=== PATIENT | female | born 1960 | race Caucasian/White ===

== ENCOUNTER 2016-12-30 15:29 | Inpatient (IN) | payer MEDICAID ==
[2016-12-30] MEDS ORDERED: NORMAL SALINE 1000 ML 1,000 ML IV PRN (16:09)
[2016-12-30] MEDS ORDERED: INSULIN REG, HUMAN 100 UNIT/ML 3 ML VIAL (PYX) IV ONE ×2 (16:21→19:34)
--- NOTE | 2016-12-30 16:28 | ER Document Report ---
ED General - General Stated Complaint: DIZZINESS Mode of Arrival: Medic Information source: Patient, Emergency Med Personnel TRAVEL OUTSIDE OF THE [place] IN LAST 30 DAYS: No - HPI Onset: This morning Onset/Duration: Gradual Notes: Patient reports feeling generally dizzy and generally weak over the last few days, worse this morning. EMS arrived and she had a blood sugar too high to register. The patient did not take her insulin this morning, and reports she normally takes insulin up to 4 times per day. She reports several week history of itching skin rash worse in the morning and she states wrist family members of the same rash, and DMSO bedbugs in the residence. The patient reports she feels lightheaded and generally weak, with EMS finding a blood pressure of 80 systolic. Patient was given 600 mL also IV fluids en route and arrived still hypotensive. The patient denies any chest pain or shortness of breath. She reports a minimal nonproductive cough. She denies any fever or chills. She is chronically incontinent and wears a diaper. She states she can ambulate very minimally related to a broken left ankle from 11/15 that occurred in [place]. Patient reports she followed up with her orthopedist in [facility] and was told recently it was healing appropriately. Patient reports diarrhea episode 2 days ago, has not had a bowel movement since that time. No other family members of head diarrhea. No recent antibiotics. - Related Data Allergies/Adverse Reactions: hydrochlorothiazide [From Maxzide] Allergy (Verified 10/05/16 07:16) triamterene [From Maxzide] Allergy (Verified 10/05/16 07:16) Past Medical History - Social History Smoking Status: Never Smoker Frequency of alcohol use: None - Appreciated Lives with: Family Family History: Reviewed & Not Pertinent, DM, Malignancy - Mother had liver cancer, Other - Father of sudden arrhythmia, had cirrhosis and a liver transplant. - Past Medical History Cardiac Medical History: Reports: Hx Hypercholesterolemia - On no medication for same, Hx Hypertension Denies: Hx Congestive Heart Failure, Hx DVT, Hx Heart Attack, Hx Pulmonary Embolism, Hx Heart Murmur Pulmonary Medical History: Reports: Hx Bronchitis, Hx COPD, Hx Pneumonia, Hx Sleep Apnea Denies: Hx Respiratory Failure, Hx Tuberculosis Neurological Medical History: Denies: Hx Seizures Endocrine Medical History: Reports: Hx Diabetes Mellitus Type 1, Hx Diabetes Mellitus Type 2. Denies: Hx Hyperthyroidism, Hx Hypothyroidism Renal/ Medical History: Reports: Hx Renal Insufficiency - Her creatinines have remained under 1.0 GI Medical History: Reports: Hx Gastroesophageal Reflux Disease. Denies: Hx Cirrhosis, Hx Hepatitis Musculoskeltal Medical History: Reports Hx Arthritis Skin Medical History: Denies Hx Eczema, Denies Hx Psoriasis Psychiatric Medical History: Reports: Hx Anxiety, Hx Bipolar Disorder, Hx Depression Infectious Medical History: Denies: Hx Hepatitis Past Surgical History: Reports: Hx Section - x2, Hx Tubal Ligation, Other - Laser eye surgery 2. - Immunizations Immunizations up to date: Yes Hx Diphtheria, Pertussis, Tetanus Vaccination: Yes Hx Pneumococcal Vaccination: 02/26/12 Review of Systems - Review of Systems Constitutional: Malaise, Weakness. denies: No symptoms reported, Chills, Fever EENT: No symptoms reported Cardiovascular: Dizziness, Lightheaded Respiratory: No symptoms reported Gastrointestinal: Diarrhea - Prior, but no bowel movement in 2 days., Poor fluid intake Physical Exam - Vital signs Vitals: Pulse Ox 97 12/30/16 16:09 Interpretation: Hypotensive - General General appearance: Alert In distress: Mild Notes: Pale - HEENT Head: Normocephalic - Described 4 The fighting for elbow, Atraumatic Eyes: Normal Pupils: PERRL Mucous membranes: Dry - Respiratory Respiratory status: No respiratory distress Chest status: Nontender Breath sounds: Normal Chest palpation: Normal - Cardiovascular Rhythm: Regular Heart sounds: Normal auscultation Murmur: No - Abdominal Inspection: Normal Distension: No distension Bowel sounds: Normal Tenderness: Nontender Organomegaly: No organomegaly - Back Back: Normal, Nontender - Extremities General upper extremity: Normal inspection, Nontender, Normal color, Normal ROM , Normal temperature General lower extremity: Normal inspection, Nontender, Normal color, Normal ROM , Normal temperature, Normal weight bearing. No: Adam's sign Notes: Patient has a left lower extremity cast in place that appears to be very loosely fitting that extends from the proximal calf down to the lower foot. She has good distal capillary refill and no evidence for cellulitis or obvious skin breakdown of the visualized areas. - Neurological Neuro grossly intact: Yes Cognition: Normal Orientation: AAOx4 Samara Coma Scale Eye Opening: Spontaneous Samara Coma Scale Verbal: Oriented Samara Coma Scale Motor: Obeys Commands [place] Coma Scale Total: 15 Speech: Normal Motor strength normal: LUE, RUE, LLE, RLE Sensory: Normal - Psychological Associated symptoms: Normal affect, Normal mood - Skin Skin Temperature: Warm Skin Moisture: Dry Skin Color: Normal Notes: Patient has stage II decubitus without any significant erythema around the lower midline gluteal region measures 1 x 2 cm and 1 x 2 cm. No evidence for abscess or obvious cellulitis. Patient also has multiple right lower extremity areas of excoriation consistent with bedbug bites. No gross cellulitis or other breakdown noted. Distally she is neurovascularly intact. Course - Re-evaluation Re-evalutation: Patient was given normal saline bolus en route by EMS, and received additional normal saline bolus for hypotension. Blood sugar was too high to register, and patient was given 10 units of IV insulin. For monitoring of strict ins and outs, and because patient is chronically incontinent of urine, a Bassett catheter was placed. 12/30/16 20:10 Patient's blood sugar improved down to 550 after 10 units of IV insulin. Patient's hypotension with systolic down to 69 did respond to IV fluids, and after 3 L normal saline with some supplemental potassium, repeat blood pressure was 98/53. Patient admitted she had not drank any fluids today or taken her insulin due to her generalized weakness. Order for an insulin drip is made for better glycemic control. Patient is given by mouth potassium to further supplement her hypokalemia. Repeat chemistry ordered. Call placed to the hospitalist to discuss admission. Normal bicarbonate without evidence for diabetic ketoacidosis. Patient's had no nausea or vomiting and is tolerating by mouth fluids. 12/30/16 21:[address] Subramanian, who advised me to check outpatient to my colleague Dr. Ortiz until he was able to eval the pt in the E.D. Continued gentle rehydration with insulin drip was written. Fingerstick blood sugars will be every 1 hour. No evidence for DKA, and hypotension is improving. Patient is alert and interactive. - Vital Signs Vital signs: Temp Pulse Resp BP Pulse Ox 99.4 F 20 89/46 L 100 12/30/16 19:01 12/30/16 19:01 12/30/16 19:01 12/30/16 19:01 - Laboratory Result Diagrams: 12/30/16 16:08 12/30/16 16:08 Laboratory results interpreted by me: 12/30/16 12/30/16 12/30/16 16:08 16:08 16:08 Hgb 10.4 L Hct 31.0 L MCH 26.7 L RDW 15.2 H Plt Count 125 L Sodium 130.5 L Potassium 3.0 L* Chloride 96 L Creatinine 1.62 H Est GFR ( Amer) 40 L Est GFR (Non-Af Amer) 33 L Glucose 601 H* POC Glucose Lactic Acid 2.4 H Calcium 8.1 L Magnesium 1.3 L Alkaline Phosphatase 142 H Total Protein 4.8 L Albumin 2.8 L Urine Protein Urine Glucose (UA) 12/30/16 12/30/16 12/30/16 18:22 18:37 20:39 Hgb Hct MCH RDW Plt Count Sodium Potassium Chloride Creatinine Est GFR ( Amer) Est GFR (Non-Af Amer) Glucose POC Glucose > 550 H* 429 H* Lactic Acid Calcium Magnesium Alkaline Phosphatase Total Protein Albumin Urine Protein 100 H Urine Glucose (UA) >=500 H - EKG Interpretation by Me EKG shows normal: Sinus rhythm Rate: Normal Additional EKG results interpreted by me: 12/30/16 20:13 EKG as interpreted by me showed normal sinus rhythm heart rate of 74. There is no gross evidence for acute TX or ischemia identified. There is no significant change from previous EKG reviewed from 10/05/16. Discharge - Discharge Clinical Impression: Hyperglycemia, Medical non-compliance, Hypotension, Renal insufficiency, Hypokalemia, Bedbug bite, Decubitus skin ulcer Condition: Poor Disposition: ADMITTED INPATIENT Referrals: JOSE G CELIS MD [Primary Care Provider] - Follow up as needed
[2016-12-30 16:30] LABS: ABSOLUTE EOSINOPHILS # (AUTO) 0.1 10^3/uL (0.0-0.6); ABSOLUTE LYMPHOCYTES (AUTO) 1.6 10^3/uL (0.5-4.7); ABSOLUTE MONOCYTES (AUTO) 0.3 10^3/uL (0.1-1.4); ABSOLUTE NEUT (AUTO) 2.6 10^3/uL (1.7-8.2); EOSINOPHILS % (AUTO) 2.2 % (0-6); HEMOGLOBIN 10.4 g/dL (12.0-15.5); HGB HCT DIFFERENCE 0.2; LYMPHOCYTES % (AUTO) 34.5 % (13-45); MEAN CORPUSCULAR HEMOGLOBIN 26.7 pg (27.0-33.4); MEAN CORPUSCULAR HGB CONC 33.4 g/dL (32.0-36.0); MEAN CORPUSCULAR VOLUME 80 fl (80-97); MONOCYTES % (AUTO) 5.6 % (3-13); RED BLOOD COUNT 3.88 10^6/uL (3.72-5.28); RED CELL DISTRIBUTION WIDTH 15.2 % (11.5-14.0); SEGMENTED NEUTROPHILS % (AUTO) 56.7 % (42-78); WHITE BLOOD COUNT 4.6 10^3/uL (4.0-10.5)
[2016-12-30 16:46] LABS: ALANINE AMINOTRANSFERASE 30 U/L (9-52); ALBUMIN 2.8 g/dL (3.5-5.0); ALKALINE PHOSPHATASE 142 U/L (38-126); ANION GAP 11 (5-19); ASPARTATE AMINO TRANSFERASE 25 U/L (14-36); BILIRUBIN,TOTAL 0.8 mg/dL (0.2-1.3); BLOOD UREA NITROGEN 20 mg/dL (7-20); CALCIUM 8.1 mg/dL (8.4-10.2); CARBON DIOXIDE 24 mmol/L (22-30); CHLORIDE 96 mmol/L (98-107); CREATINE KINASE 46 U/L (30-135); CREATININE RESULT 1.62 mg/dL (0.52-1.25); MAGNESIUM 1.3 mg/dL (1.6-2.3); SODIUM 130.5 mmol/L (137-145); TOTAL PROTEIN 4.8 g/dL (6.3-8.2)
[2016-12-30 16:58] LABS: CREATINE KINASE MB 1.07 ng/mL (<4.55); TROPONIN I 0.012 ng/mL
[2016-12-30 17:01] LABS: GLUCOSE 601 mg/dL (75-110)
[2016-12-30] MEDS ORDERED: POTASSI CL 20 MEQ/NS 1L 1,000 ML IV ONE (18:04)
--- NOTE | 2016-12-30 18:06 | EKG REPORT ---
SEVERITY:- ABNORMAL ECG - SINUS RHYTHM PROBABLE LEFT VENTRICULAR HYPERTROPHY BORDERLINE T ABNORMALITIES, INFERIOR LEADS PROLONGED QT INTERVAL : Confirmed by: Annita Cabral MD 30-Dec-2016 18:04:31
[2016-12-30] MEDS ORDERED: POTASSIUM CHLORIDE 10 MEQ TABLET.SA PO ONE (18:12)
[2016-12-30] MEDS ORDERED: DEXTROSE 50%-WATER 25 GM/50 ML DISP.SYRIN IV PRN ×2 (18:45)
[2016-12-30] MEDS ORDERED: NORMAL SALINE 100 ML with INSULIN REGULAR, HUMAN 100 UNIT IV PRN ×2 (18:45)
[2016-12-30] MEDS ORDERED: DEXTROSE 40% GEL 15 GM TUBE PO PRN ×2 (18:45)
[2016-12-30] MEDS ORDERED: GLUCAGON,HUMAN RECOMB 1 MG INJ IM PRN (18:45)
[2016-12-30] MEDS ORDERED: NORMAL SALINE 1000 ML 1,000 ML IV ONE (18:50)
[2016-12-30 18:54] LABS: APPEARANCE,URINE SLIGHTLY-CLOUDY; BILIRUBIN,URINE NEGATIVE (NEGATIVE); GLUCOSE, URINE >=500 mg/dL (NEGATIVE); KETONES,URINE NEGATIVE (NEGATIVE); LEUKOCYTE ESTERASE,URINE NEGATIVE (NEGATIVE); NITRITE,URINE NEGATIVE (NEGATIVE); PROTEIN,URINE 100 mg/dL (NEGATIVE); URINE SPECIFIC GRAVITY 1.031; UROBILINOGEN,URINE NEGATIVE mg/dL (<2.0)
[2016-12-30 19:38] LABS: VENOUS BLOOD BASE EXCESS -1.6 mmol/L; VENOUS BLOOD HCO3 24.7 mmol/L (20-32); VENOUS BLOOD PCO2 49.1 mmHg (35-63); VENOUS BLOOD PH 7.32 (7.30-7.42)
[2016-12-30] MEDS ORDERED: POTASSI CL 20 MEQ/1/2NS 1L 1,000 ML IV ONE (20:47)
[2016-12-30] MEDS ORDERED: INSULIN REG, HUMAN 100 UNIT/ML 3 ML VIAL (PYX) ONE (21:54)
[2016-12-30 22:15] LABS: ANION GAP 7 (5-19); BLOOD UREA NITROGEN 19 mg/dL (7-20); CARBON DIOXIDE 26 mmol/L (22-30); CHLORIDE 104 mmol/L (98-107); CREATININE RESULT 1.27 mg/dL (0.52-1.25); GLUCOSE 349 mg/dL (75-110); POTASSIUM 3.1 mmol/L (3.6-5.0); SODIUM 137.4 mmol/L (137-145)
[2016-12-31] MEDS ORDERED: POTASSI CL 20 MEQ/D5NS 1L 1,000 ML IV PRN (02:50)
[2016-12-31] MEDS ORDERED: POTASSI CL 20 MEQ/D5NS 1L 20 MEQ/1,000 ML RTUINJ IV ONE (02:53)
[2016-12-31] MEDS ORDERED: DEXTROSE 40% GEL 15 GM TUBE PO PRN ×2 (02:55)
[2016-12-31] MEDS ORDERED: GLUCAGON,HUMAN RECOMB 1 MG INJ IM PRN (02:55)
[2016-12-31] MEDS ORDERED: DEXTROSE 50%-WATER 25 GM/50 ML DISP.SYRIN IV PRN ×2 (02:55)
[2016-12-31] MEDS ORDERED: POTASSI CL 20 MEQ/NS 1L 1,000 ML IV PRN (02:58)
[2016-12-31] MEDS ORDERED: POTASSI CL 20 MEQ/NS 1L 1,000 ML IV ONE (02:59)
[2016-12-31] MEDS ORDERED: MAGNESIUM SULFATE/D5W 1 GM/100 ML RTUPB IV SCH (03:00)
[2016-12-31] MEDS ORDERED: IPRATROPIUM/ALBUTEROL 0.5-2.5 MG/3 ML AMPUL NEB PRN (03:00)
[2016-12-31] MEDS ORDERED: ACETAMINOPHEN 325 MG TABLET PO PRN (03:07)
[2016-12-31] MEDS ORDERED: ACETAMINOPHEN 650 MG SUPP.RECT PR PRN (03:10)
[2016-12-31] MEDS ORDERED: POTASSI CL 20 MEQ/50 ML RIDER 20 MEQ/50 ML RTUPB IV ONE (03:15)
--- NOTE | 2016-12-31 03:17 | PDOC H&P ---
History of Present Illness Admission Date/PCP: 12/30/16 23:29 JOSE G CELIS MD Patient complains of: Dizziness History of Present Illness: ALEJO ABBASI is a 56 year old female with underlying type I diabetes mellitus, occasional urinary tract infection, COPD, mild reflux, and bipolar disorder with associated anxiety and depression who presents to the emergency room for evaluation of above complaint. Patient has been discussed with emergency room physician who evaluated the patient. Patient gives conflicting, confused answers to questions and is able to provide no history whatsoever in terms of acute or chronic events, review of systems, personal habits, family history, etc. No friends or family are present. Old inpatient records are reviewed. She does however deny pain at present time. . ER physician notes a been reviewed. Was noted to be significantly hypotensive upon initial presentation to the emergency room, with low systolic pressure of 68. This is gradually responded to multiple liter boluses of crystalloid and pressure slowly rising in an acceptable range. Patient was initially started on insulin drip by the emergency room physician. No evidence of acidosis. This is been able to be discontinued after above treatment. Laboratory results are listed in [employer] and are reviewed. X-ray summary results are listed below, with full report(s) reviewed. . EKG reviewed. October 05 of last year. Social history/personal habits: From review of prior records from a 10/05/2016 admission, . 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 No alcohol or illicit drug use. Allergies/adverse reactions are listed in [facility] and are reviewed. Home medications are reviewed from a list provided by patient and are to be reconciled by nursing staff in [facility]. Home medications initially autopopulated into [employer] may not accurately reflect patient's true medications, dosages, and/or frequencies. REVIEW OF SYSTEMS: See history and present illness. No further information available this point in time. PHYSICAL EXAMINATION: 105.2 kg. Height is not recorded on the chart. Temperature 99.4. Respirations are 14 and unlabored. 100% saturation on 3 L oxygen per nasal cannula. Pulse 62 and regular. Blood pressure 99/62. service center technician Reji is present. Obese chronically ill-appearing somewhat disheveled female who appears a bit older than her stated age. Somewhat somnolent. Does awaken briefly when spoken to and look about the room and does follow basic commands appropriately, though somewhat slowly. Skin is warm and dry. No grossly obvious evidence of rash in areas of skin examined. No subcutaneous nodules palpated. See emergency room physician comments about decubiti in her buttock region. No evidence of secondary infection of same. ENT: Hearing grossly normal to normal conversation. Tongue midline on protrusion pink and slightly tacky. Eyes: No scleral icterus. Pupils equal and reactive to light at 4 mm. [place] conjunctivae. No raccoon eyes. Neck is supple and nontender to gentle active range of motion and palpation. Midline trachea. No palpable thyroid nodule mass enlargement or tenderness. Lymphatic: No palpable cervical or clavicular nodes. Neck and lymphatic exams limited by patient body habitus. Psychiatric: Difficult to adequately evaluate due to her current status. Lungs: Auscultation reveals clear and equal breath sounds bilaterally. No use of accessory respiratory muscles. Cardiovascular: Heart regular rate and rhythm, without gallop murmur or rub. No carotid or abdominal aortic bruits. No right ankle or pedal edema; has left lower leg cast in place.. Faintly palpable right dorsalis pedis pulse. Toes on both feet are symmetrically warm and dry with excellent capillary refill. Abdomen: soft, obese, distended nontender with positive bowel sounds. Unable to adequately evaluate abdomen for masses or organomegaly due to Body habitus Extremities: Right foot warm and dry. No right calf tenderness to compression. No grossly obvious visual evidence of right calf swelling. Gentle manipulation of lower extremities fails to reveal any obvious evidence of injury or instability to knees hips or right ankle. Neurologic: Moves all 4 extremities grossly normally. Patellar reflexes absent. Absent right Babinski. Light touch can't be adequately evaluated due to her current status. Dorsiflexion and plantarflexion of right foot 5 / 5. Past Medical History Cardiac Medical History: Reports: Hyperlipidema - On no medication for same, Hypertension Denies: Congestive Heart Failure, DVT, Myocardial Infarction, Pulmonary Embolism, Heart Murmur Pulmonary Medical History: Reports: Bronchitis, Chronic Obstructive Pulmonary Disease (COPD), Pneumonia, Sleep Apnea Denies: Respiratory Failure, Tuberculosis Neurological Medical History: Denies: Seizures Endocrine Medical History: Reports: Diabetes Mellitus Type 1, Diabetes Mellitus Type 2 Denies: Hyperthyroidism, Hypothyroidism GI Medical History: Reports: Gastroesophageal Reflux Disease Denies: Cirrhosis, Hepatitis Musculoskeltal Medical History: Reports: Arthritis Skin Medical History: Denies: Eczema, Psoriasis Psychiatric Medical History: Reports: Bipolar Disorder, Depression Hematology: Reports: Anemia Denies: Hemophilia, Sickle Cell Disease Past Surgical History Past Surgical History: Reports: Section - x2, Tubal Ligation, Other - Laser eye surgery 2. Denies: Amputation Social History Information Source: Emergency Med Personnel, [facility] Records Lives with: Family Smoking Status: Current Some Day Smoker Frequency of Alcohol Use: None Hx Recreational Drug Use: No Drugs: None Hx Prescription Drug Abuse: No - Advance Directive Resuscitation Status: Full Code Surrogate healthcare decision maker:: Reportedly Family History Family History: Reviewed & Not Pertinent, DM, Malignancy - Mother had liver cancer, Other - Father of sudden arrhythmia, had cirrhosis and a liver transplant. Parental Family History Reviewed: Yes Children Family History Reviewed: Yes Sibling(s) Family History Reviewed.: Yes Medication/Allergy Home Medications: Bupropion HCl [Bupropion HCl Sr] 150 mg PO DAILY 12/31/16 Gabapentin [Neurontin 300 mg Capsule] 4 cap PO TID 12/31/16 Insulin Aspart [Novolog Flexpen] 0 units SUBCUT ASDIR PRN 12/31/16 Insulin Detemir [Levemir Insulin 100 units/mL] 80 units SUBCUT BID 12/31/16 Lorazepam [Ativan 0.5 mg Tablet] 1 tab PO DAILY 12/31/16 Lorazepam [Ativan 1 mg Tablet] 0.5 tab PO Q6HP PRN 12/31/16 Pantoprazole Sodium [Protonix] 20 mg PO DAILY 12/31/16 Quetiapine Fumarate [Seroquel 100 mg Tablet] 1 tab PO DAILY 12/31/16 Quetiapine Fumarate [Seroquel 100 mg Tablet] 1 tab PO DAILY 12/31/16 Quetiapine Fumarate [Seroquel] 200 mg PO QAM 12/31/16 Quetiapine Fumarate [Seroquel] 400 mg PO QPM 12/31/16 Ropinirole HCl [Requip] 3 mg PO TID 12/31/16 Allergies/Adverse Reactions: hydrochlorothiazide [From Maxzide] Allergy (Verified 10/05/16 07:16) triamterene [From Maxzide] Allergy (Verified 10/05/16 07:16) Physical Exam Vital Signs: Temp Pulse Resp BP Pulse Ox 99.4 F 19 114/65 100 12/30/16 19:01 12/31/16 00:01 12/31/16 00:01 12/31/16 00:01 Results Impressions: Chest X-Ray 12/30/16 16:21 IMPRESSION: NO ACUTE RADIOGRAPHIC FINDING IN THE CHEST. Assessment & Plan - Diagnosis (1) Decubitus skin ulcer Qualifiers: Pressure ulcer location: unspecified location Pressure ulcer stage: unspecified pressure ulcer stage Qualified Code(s): L89.90 - Pressure ulcer of unspecified site, unspecified stage Is this a current diagnosis for this admission?: YesPlan: Innovative mattress. Turn every 2 hours. Dietary consult. (2) Diabetes mellitus type 1, uncontrolled Qualifiers: Diabetes mellitus complication status: without complication Qualified Code(s): E10.9 - Type 1 diabetes mellitus without complications Is this a current diagnosis for this admission?: YesPlan: Accu-Cheks with appropriate sliding scale coverage. Currently nothing by mouth due to combination of her acute encephalopathy, along with low blood pressure. Knee high SCDs for DVT prophylaxis, along with subcutaneous heparin. Time spent in evaluation and management of patient: 68 minutes. (3) Hypokalemia Is this a current diagnosis for this admission?: YesPlan: Potassium replacement with follow-up chemistry. (4) Hypomagnesemia Is this a current diagnosis for this admission?: YesPlan: Magnesium replacement with follow-up chemistry. (5) Hypotension Qualifiers: Hypotension type: unspecified hypotension type Qualified Code(s): I95.9 - Hypotension, unspecified Is this a current diagnosis for this admission?: YesPlan: Uncertain etiology. Suspect due at least partly to poor by mouth intake. Seems to be resolving nicely with vigorous fluid boluses and further hydration. ICU admission for the present time. (6) Acute encephalopathy Is this a current diagnosis for this admission?: YesPlan: Probably multifactorial, possibly due in part to her home medications. Should clear with treatment and time. - Inpatient Certification Based on my medical assessment, after consideration of the patient's comorbidities, presenting symptoms, or acuity I expect that the services needed warrant INPATIENT care.: Yes I certify that my determination is in accordance with my understanding of Medicare's requirements for reasonable and necessary INPATIENT services [42 CFR 412.3e].: Yes Medical Necessity: Need Close Monitoring Due to Risk of Patient Decompensation, Need For IV Fluids, Need For Continuous Telemetry Monitoring, Risk of Diagnosis Which Will Require Inpatient Eval/Care/Monitoring Post Hospital Care: D/C or Transfer Summary
[2016-12-31 03:59] LABS: ANION GAP 10 (5-19); BLOOD UREA NITROGEN 17 mg/dL (7-20); CALCIUM 8.4 mg/dL (8.4-10.2); CARBON DIOXIDE 23 mmol/L (22-30); CHLORIDE 108 mmol/L (98-107); CREATININE RESULT 0.89 mg/dL (0.52-1.25); GLUCOSE 136 mg/dL (75-110); POTASSIUM 3.4 mmol/L (3.6-5.0); SODIUM 141.2 mmol/L (137-145)
[2016-12-31 04:57] LABS: VENOUS BLOOD BASE EXCESS -1.4 mmol/L; VENOUS BLOOD HCO3 24.7 mmol/L (20-32); VENOUS BLOOD PCO2 47.8 mmHg (35-63); VENOUS BLOOD PH 7.33 (7.30-7.42)
[2016-12-31 05:38] LABS: ABSOLUTE EOSINOPHILS # (AUTO) 0.1 10^3/uL (0.0-0.6); ABSOLUTE LYMPHOCYTES (AUTO) 1.9 10^3/uL (0.5-4.7); ABSOLUTE MONOCYTES (AUTO) 0.2 10^3/uL (0.1-1.4); ABSOLUTE NEUT (AUTO) 1.8 10^3/uL (1.7-8.2); BASOPHILS % (AUTO) 0.6 % (0-2); EOSINOPHILS % (AUTO) 3.8 % (0-6); HEMATOCRIT 29.4 % (36.0-47.0); HEMOGLOBIN 9.8 g/dL (12.0-15.5); LYMPHOCYTES % (AUTO) 46.5 % (13-45); MEAN CORPUSCULAR HEMOGLOBIN 26.6 pg (27.0-33.4); MEAN CORPUSCULAR HGB CONC 33.5 g/dL (32.0-36.0); MEAN CORPUSCULAR VOLUME 79 fl (80-97); MONOCYTES % (AUTO) 4.8 % (3-13); RED CELL DISTRIBUTION WIDTH 15.8 % (11.5-14.0); SEGMENTED NEUTROPHILS % (AUTO) 44.3 % (42-78)
[2016-12-31] MEDS: POTASSI CL 20 MEQ/NS 1L 1,000 ML IV PRN ×3 (05:39→14:41)
[2016-12-31] MEDS ORDERED: HEPARIN SOD (PORCINE) 5,000 UNIT/ML 1 ML SYRINGE SUBCUT SCH (10:00)
[2016-12-31] MEDS ORDERED: LORAZEPAM 1 MG TABLET PO PRN (10:49)
[2016-12-31] MEDS ORDERED: (PENDING PHARMACY ID) (Quetiapine Fumarate [Seroquel] 200 MG) PO SCH (11:00)
[2016-12-31] MEDS ORDERED: LANSOPRAZOLE 15 MG TAB.RAP.DR PO ONE (12:00)
[2016-12-31] MEDS ORDERED: QUETIAPINE FUMARATE 100 MG TABLET PO ONE (12:00)
[2016-12-31] MEDS ORDERED: INSULIN LISPRO 100 UNIT/ML 3 ML VIAL SUBCUT PRN (12:38)
[2016-12-31] MEDS ORDERED: ROPINIROLE HCL 3 MG PO SCH (14:00)
[2016-12-31] MEDS ORDERED: ROPINIROLE HCL 1 MG TABLET PO SCH (14:00)
[2016-12-31] MEDS ORDERED: GABAPENTIN 300 MG CAPSULE PO SCH (14:00)
--- NOTE | 2016-12-31 14:26 | Progress Note ---
Provider Note Provider Note: JEAN DHILLON Search Criteria: Last Name 'Jean' and First Name 'Yandy' and = ' and Request Period = 07/04/16' to 12/31/16' - 8 out of 8 Recipients Selected. Fill Date Product, Str, Form Qty Days Pt ID Prescriber Written RX# N/R* Pharm MED+ ------ ---- --------- --- ------- - 12/29/2016 LORAZEPAM 1 MG TABLET 90.00 30 [id number] 12/21/2016 HYDROCODON-ACETAMINOPHEN 5-325 20.00 5 [id number] 11/23/2016 OXYCODONE HCL 5 MG TABLET 60.00 5 [id number] 11/14/2016 LORAZEPAM 1 MG TABLET 90.00 22 [id number] 11/09/2016 LORAZEPAM 1 MG TABLET 90.00 23 [id number] 10/13/2016 OXYCODONE-ACETAMINOPHEN 10-325 90.00 30 [id number] 10/04/2016 LORAZEPAM 1 MG TABLET 90.00 23 [id number] 08/09/2016 MODAFINIL 200 MG TABLET 30.00 30 [id number] 08/09/2016 CLONAZEPAM 1 MG TABLET 90.00 30 [id number] ALETA YEE MD; [facility] [place] [id number] ALINE COLLINS; [facility], [place] [address] [id number] JOSE G CELIS MD; [facility], [address],, [facility] [address] [id number] [place]; DEDE HARPER, [address],, [facility] [address] [id number] CHAPIN MACK MD; [address] [place] [address], [address], [place] [id number]
[2016-12-31] MEDS ORDERED: POTASSIUM CHLORIDE 10 MEQ TABLET.SA PO ONE (15:00)
--- NOTE | 2016-12-31 16:29 | PDOC DISCHARGE SUMMARY ---
General - Admit/Disc Date/PCP Admission Date/Primary Care Provider: 12/31/16 03:02 JOSE G CELIS MD Discharge Date: 12/31/16 - Discharge Diagnosis (1) Hyperglycemia Is this a current diagnosis for this admission?: YesSummary: Improved with resuming the patient's home medications. (3) Prerenal azotemia Is this a current diagnosis for this admission?: Yes (4) Hypotension Is this a current diagnosis for this admission?: Yes (5) Hypomagnesemia Is this a current diagnosis for this admission?: Yes (6) Bipolar affective disorder Is this a current diagnosis for this admission?: Yes (7) IRVIN (obstructive sleep apnea) Is this a current diagnosis for this admission?: Yes (8) Noncompliance Is this a current diagnosis for this admission?: Yes (9) Decubitus skin ulcer Is this a current diagnosis for this admission?: Yes (10) Bedbug bite Is this a current diagnosis for this admission?: No - Additional Information Resuscitation Status: Full Code Discharge Diet: As Tolerated, Diabetic Discharge Activity: Activity As Tolerated Home Medications: Bupropion HCl [Bupropion HCl Sr] 150 mg PO DAILY 12/31/16 Gabapentin [Neurontin 300 mg Capsule] 4 cap PO TID 12/31/16 Insulin Aspart [Novolog Flexpen] 0 units SUBCUT ASDIR PRN 12/31/16 Insulin Detemir [Levemir Insulin 100 units/mL] 80 units SUBCUT BID 12/31/16 Lorazepam [Ativan 0.5 mg Tablet] 1 tab PO DAILY 12/31/16 Lorazepam [Ativan 1 mg Tablet] 0.5 tab PO Q6HP PRN 12/31/16 Pantoprazole Sodium [Protonix] 20 mg PO DAILY 12/31/16 Quetiapine Fumarate [Seroquel 100 mg Tablet] 1 tab PO DAILY 12/31/16 Quetiapine Fumarate [Seroquel 100 mg Tablet] 1 tab PO DAILY 12/31/16 Quetiapine Fumarate [Seroquel] 200 mg PO QAM 12/31/16 Quetiapine Fumarate [Seroquel] 400 mg PO QPM 12/31/16 Ropinirole HCl [Requip] 3 mg PO TID 12/31/16 History of Present Illness Patient complains of: Dizziness History of Present Illness: ALEJO ABBASI is a 56 year old female with underlying type I diabetes mellitus, occasional urinary tract infection, COPD, mild reflux, and bipolar disorder with associated anxiety and depression who presents to the emergency room for evaluation of above complaint. Patient has been discussed with emergency room physician who evaluated the patient. Patient gives conflicting, confused answers to questions and is able to provide no history whatsoever in terms of acute or chronic events, review of systems, personal habits, family history, etc. No friends or family are present. Old inpatient records are reviewed. She does however deny pain at present time. Was noted to be significantly hypotensive upon initial presentation to the emergency room, with low systolic pressure of 68. This is gradually responded to multiple liter boluses of crystalloid and pressure slowly rising in an acceptable range. Patient was initially started on insulin drip by the emergency room physician. No evidence of acidosis. Hospital Course Hospital Course: The patient was admitted. The patient was hydrated and the patient's creatinine normalized. Patient's blood glucose normalized with hydration. The patient was started on a diet was started on her own medication dosages. Patient received her home medication on her symptoms improved. Likely lites were replaced. Patient admits to having difficulty remembering her medications. The patient's is present the bedside the patient is care. He also notes that the patient forgets her medications. The patient stated that she had not had any insulin since because she "forgot". The patient has agreed to home health services. Will consult social work for this. is agreeable to this plan. The patient has just received complete refills from her primary care provider. Patient has had complete symptom resolution and labs have normalized. She is quite eager for discharge. Physical Exam Vital Signs: Temp Pulse Resp BP Pulse Ox 98.3 F 74 14 118/70 98 12/31/16 08:47 12/31/16 10:15 12/31/16 15:30 12/31/16 13:31 12/31/16 15:15 Intake & Output 12/29/16 12/30/16 12/31/16 23:59 23:59 23:59 Output Total 150 Balance -150 General appearance: PRESENT: no acute distress, obese, well-developed Head exam: PRESENT: atraumatic, normocephalic Eye exam: PRESENT: conjunctiva pink, EOMI, PERRLA. ABSENT: scleral icterus Ear exam: PRESENT: normal external ear exam Mouth exam: PRESENT: moist, tongue midline Neck exam: ABSENT: carotid bruit, JVD, lymphadenopathy, thyromegaly Respiratory exam: PRESENT: clear to auscultation sami, symmetrical, unlabored. ABSENT: rales, rhonchi, tachypnea, wheezes Cardiovascular exam: PRESENT: RRR. ABSENT: diastolic murmur, rubs, systolic murmur Pulses: PRESENT: normal dorsalis pedis pul, other - Right lower extremity has plaster Bindu cast. Vascular exam: PRESENT: normal capillary refill GI/Abdominal exam: PRESENT: normal bowel sounds, soft. ABSENT: distended, guarding, mass, organolmegaly, rebound, tenderness Rectal exam: PRESENT: deferred Extremities exam: PRESENT: full ROM. ABSENT: calf tenderness, clubbing, pedal edema Neurological exam: PRESENT: alert, awake, oriented to person, oriented to place , oriented to time, oriented to situation, CN II-XII grossly intact. ABSENT: motor sensory deficit Psychiatric exam: PRESENT: appropriate affect, normal mood, unusual affect, other - Hypomanic. ABSENT: homicidal ideation, suicidal ideation Skin exam: PRESENT: dry, intact, warm. ABSENT: cyanosis, rash Results Laboratory Results: 12/31/16 04:36 12/31/16 03:34 12/31/16 12/31/16 12/31/16 03:34 03:34 03:34 WBC Cancelled RBC Cancelled Hgb Cancelled Hct Cancelled MCV Cancelled MCH Cancelled MCHC Cancelled RDW Cancelled Plt Count Cancelled Seg Neutrophils % Cancelled Lymphocytes % Cancelled Monocytes % Cancelled Eosinophils % Cancelled Basophils % Cancelled Absolute Neutrophils Cancelled Absolute Lymphocytes Cancelled Absolute Monocytes Cancelled Absolute Eosinophils Cancelled Absolute Basophils Cancelled VBG pH Cancelled VBG pCO2 Cancelled VBG HCO3 Cancelled VBG Base Excess Cancelled Sodium 141.2 Potassium 3.4 L Chloride 108 H Carbon Dioxide 23 Anion Gap 10 BUN 17 Creatinine 0.89 Est GFR ( Amer) > 60 Est GFR (Non-Af Amer) > 60 Glucose 136 H Calcium 8.4 TSH Free T3 pg/mL Labs- Last Values WBC 4.0 10^3/uL (4.0-10.5) 12/31/16 04:36 RBC 3.70 10^6/uL (3.72-5.28) L 12/31/16 04:36 Hgb 9.8 g/dL (12.0-15.5) L 12/31/16 04:36 Hct 29.4 % (36.0-47.0) L 12/31/16 04:36 MCV 79 fl (80-97) L 12/31/16 04:36 MCH 26.6 pg (27.0-33.4) L 12/31/16 04:36 MCHC 33.5 g/dL (32.0-36.0) 12/31/16 04:36 RDW 15.8 % (11.5-14.0) H 12/31/16 04:36 Plt Count 96 10^3/uL (150-450) L 12/31/16 04:36 Seg Neutrophils % 44.3 % (42-78) 12/31/16 04:36 Lymphocytes % 46.5 % (13-45) H 12/31/16 04:36 Monocytes % 4.8 % (3-13) 12/31/16 04:36 Eosinophils % 3.8 % (0-6) 12/31/16 04:36 Basophils % 0.6 % (0-2) 12/31/16 04:36 Absolute Neutrophils 1.8 10^3/uL (1.7-8.2) 12/31/16 04:36 Absolute Lymphocytes 1.9 10^3/uL (0.5-4.7) 12/31/16 04:36 Absolute Monocytes 0.2 10^3/uL (0.1-1.4) 12/31/16 04:36 Absolute Eosinophils 0.1 10^3/uL (0.0-0.6) 12/31/16 04:36 Absolute Basophils 0.0 10^3/uL (0.0-0.2) 12/31/16 04:36 Platelet Estimate Cancelled 12/31/16 03:34 VBG pH 7.33 (7.30-7.42) 12/31/16 04:36 VBG pCO2 47.8 mmHg (35-63) 12/31/16 04:36 VBG HCO3 24.7 mmol/L (20-32) 12/31/16 04:36 VBG Base Excess -1.4 mmol/L 12/31/16 04:36 Sodium 141.2 mmol/L (137-145) 12/31/16 03:34 Potassium 3.4 mmol/L (3.6-5.0) L 12/31/16 03:34 Chloride 108 mmol/L (98-107) H 12/31/16 03:34 Carbon Dioxide 23 mmol/L (22-30) 12/31/16 03:34 Anion Gap 10 (5-19) 12/31/16 03:34 BUN 17 mg/dL (7-20) 12/31/16 03:34 Creatinine 0.89 mg/dL (0.52-1.25) 12/31/16 03:34 Est GFR ( Amer) > 60 (>60) 12/31/16 03:34 Est GFR (Non-Af Amer) > 60 (>60) 12/31/16 03:34 Glucose 136 mg/dL (75-110) H 12/31/16 03:34 POC Glucose 257 mg/dL (70-110) H 12/31/16 12:22 Lactic Acid 1.7 mmol/L (0.7-2.1) 12/30/16 22:34 Calcium 8.4 mg/dL (8.4-10.2) 12/31/16 03:34 Magnesium 1.3 mg/dL (1.6-2.3) L 12/30/16 16:08 Total Bilirubin 0.8 mg/dL (0.2-1.3) 12/30/16 16:08 Direct Bilirubin 0.0 mg/dL (0.0-0.3) 12/30/16 16:08 AST 25 U/L (14-36) 12/30/16 16:08 ALT 30 U/L (9-52) 12/30/16 16:08 Alkaline Phosphatase 142 U/L (38-126) H 12/30/16 16:08 Creatine Kinase 46 U/L (30-135) 12/30/16 16:08 CK-MB (CK-2) 1.07 ng/mL (<4.55) 12/30/16 16:08 Troponin I 0.071 ng/mL 12/31/16 03:34 Total Protein 4.8 g/dL (6.3-8.2) L 12/30/16 16:08 Albumin 2.8 g/dL (3.5-5.0) L 12/30/16 16:08 TSH 0.41 uIU/mL (0.47-4.68) L 12/31/16 03:34 Free T3 pg/mL 3.15 pg/mL (2.77-5.27) 12/31/16 03:34 Urine Color YELLOW 12/30/16 18:22 Urine Appearance SLIGHTLY-CLOUDY 12/30/16 18:22 Urine pH 5.0 (5.0-9.0) 12/30/16 18:22 Ur Specific Jordan 1.031 12/30/16 18:22 Urine Protein 100 mg/dL (NEGATIVE) H 12/30/16 18:22 Urine Glucose (UA) >=500 mg/dL (NEGATIVE) H 12/30/16 18:22 Urine Ketones NEGATIVE mg/dL (NEGATIVE) 12/30/16 18:22 Urine Blood NEGATIVE (NEGATIVE) 12/30/16 18:22 Urine Nitrite NEGATIVE (NEGATIVE) 12/30/16 18:22 Urine Bilirubin NEGATIVE (NEGATIVE) 12/30/16 18:22 Urine Urobilinogen NEGATIVE mg/dL (<2.0) 12/30/16 18:22 Ur Leukocyte Esterase NEGATIVE (NEGATIVE) 12/30/16 18:22 Urine WBC (Auto) 9 /HPF 12/30/16 18:22 Urine RBC (Auto) 2 /HPF 12/30/16 18:22 Squamous Epi Cells Auto 2 /HPF 12/30/16 18:22 Urine Mucus (Auto) RARE /LPF 12/30/16 18:22 Urine Ascorbic Acid NEGATIVE (NEGATIVE) 12/30/16 18:22 Slides for Path Review Cancelled 12/31/16 03:34 Impressions: Chest X-Ray 12/30/16 16:21 IMPRESSION: NO ACUTE RADIOGRAPHIC FINDING IN THE CHEST. Head CT 12/31/16 00:00 IMPRESSION: NORMAL BRAIN CT WITHOUT CONTRAST. Qualifiers PATEINT BEING DISCHARGED WITH ANY OF THE FOLLOWING DIAGNOSIS?: No Plan Discharge Plan: Follow with psychiatry as are scheduled. Follow with orthopedics and surgery scheduled. Time Spent: Less than 30 Minutes
[2016-12-31 16:46] VITALS: BP 145/61
[2016-12-31] MEDS ORDERED: (PENDING PHARMACY ID) (Quetiapine Fumarate [Seroquel] 400 MG) PO SCH (18:00)
[2016-12-31] MEDS ORDERED: BUPROPION HCL 75 MG TABLET PO SCH (22:00)
[2016-12-31] MEDS ORDERED: QUETIAPINE FUMARATE 100 MG TABLET PO SCH (22:00)
[2017-01-01] MEDS ORDERED: LANSOPRAZOLE 15 MG TAB.RAP.DR PO SCH (06:00)
[2017-01-01] MEDS ORDERED: QUETIAPINE FUMARATE 100 MG TABLET PO SCH (08:00)
[2017-01-01] MEDS ORDERED: (PENDING PHARMACY ID) (Pantoprazole Sodium [Protonix] 20 MG) PO SCH (10:00)
== END 2016-12-31 16:55 | disposition home health service (06) | DRG 639 ==
LOC: ER 15:29 → UNDOADMIN 23:29 → EH 23:29
PROVIDERS: ADMIT Family Medicine; ATTEND Family Medicine
PROC: 3E0F73Z Introduction of Anti-inflammatory into Respiratory Tract, Via Natural or Artificial Opening (ICD-10-PCS; principal; 2016-12-31)
DX: E10.65 Type 1 diabetes mellitus with hyperglycemia (principal); I95.9 Hypotension, unspecified; E83.42 Hypomagnesemia; F31.9 Bipolar disorder, unspecified; G47.33 Obstructive sleep apnea (adult) (pediatric); T14.8 Other injury of unspecified body region; J44.9 Chronic obstructive pulmonary disease, unspecified; K21.9 Gastro-esophageal reflux disease without esophagitis; F41.9 Anxiety disorder, unspecified; E78.5 Hyperlipidemia, unspecified; I10 Essential (primary) hypertension; M19.90 Unspecified osteoarthritis, unspecified site; D64.9 Anemia, unspecified; F17.210 Nicotine dependence, cigarettes, uncomplicated; E87.6 Hypokalemia; E78.00 Pure hypercholesterolemia, unspecified; L89.302 Pressure ulcer of unspecified buttock, stage 2; Z88.8 Allergy status to other drugs, medicaments and biological substances; Z91.19 Patient's noncompliance with other medical treatment and regimen; Z79.4 Long term (current) use of insulin; Z79.899 Other long term (current) drug therapy; Z83.3 Family history of diabetes mellitus; Z80.0 Family history of malignant neoplasm of digestive organs
CPT/HCPCS: 36415; 51702; 70450; 71010; 80048; 80053; 81001; 82550; 82553; 82803; 82962; 83605; 83735; 84443; 84481; 84484; 85025; 87040; 87086; 93005; 93010; 96361; 96365; 99285; J1815; J3475; J3480; J3490; J7030

== ENCOUNTER 2017-04-20 16:56 | Emergency (ER) | payer MEDICAID ==
[2017-04-20 17:37] VITALS: BP 177/86
--- NOTE | 2017-04-20 17:39 | ER Document Report ---
HPI - HPI Patient complains to provider of: skin irritation Pain Level: Denies Context: patient is a 57 year old female who presents with skin "rash" for one year. patient is under the impression she has worms in her skin and is constantly picking at wound to ge tthem out - REPRODUCTIVE Reproductive: DENIES: : - DERM Skin Color: Normal Past Medical History - Social History Smoking Status: Smoker,Current Status Unk Family History: Reviewed & Not Pertinent, DM, Malignancy - Mother had liver cancer, Other - Father of sudden arrhythmia, had cirrhosis and a liver transplant. Patient has suicidal ideation: No Patient has homicidal ideation: No - Past Medical History Cardiac Medical History: Reports: Hx Hypercholesterolemia - On no medication for same, Hx Hypertension Denies: Hx Congestive Heart Failure, Hx DVT, Hx Heart Attack, Hx Pulmonary Embolism, Hx Heart Murmur Pulmonary Medical History: Reports: Hx Bronchitis, Hx COPD, Hx Pneumonia, Hx Sleep Apnea Denies: Hx Respiratory Failure, Hx Tuberculosis Neurological Medical History: Denies: Hx Seizures Endocrine Medical History: Reports: Hx Diabetes Mellitus Type 1, Hx Diabetes Mellitus Type 2. Denies: Hx Hyperthyroidism, Hx Hypothyroidism Renal/ Medical History: Reports: Hx Renal Insufficiency - Her creatinines have remained under 1.0. Denies: Hx Peritoneal Dialysis GI Medical History: Reports: Hx Gastroesophageal Reflux Disease. Denies: Hx Cirrhosis, Hx Hepatitis Musculoskeltal Medical History: Reports Hx Arthritis Skin Medical History: Denies Hx Eczema, Denies Hx Psoriasis Psychiatric Medical History: Reports: Hx Anxiety, Hx Bipolar Disorder, Hx Depression Infectious Medical History: Denies: Hx Hepatitis Past Surgical History: Reports: Hx Section - x2, Hx Tubal Ligation, Other - Laser eye surgery 2. - Immunizations Immunizations up to date: Yes Hx Diphtheria, Pertussis, Tetanus Vaccination: Yes Hx Pneumococcal Vaccination: 02/26/12 Vertical Provider Document - CONSTITUTIONAL Agree With Documented VS: Yes Exam Limitations: No Limitations General Appearance: WD/WN, No Apparent Distress - INFECTION CONTROL TRAVEL OUTSIDE OF THE [place] IN LAST 30 DAYS: No - MUSCULOSKELETAL/EXTREMETIES Musculoskeletal/Extremeties: MAEW, FROM, Non-Tender, No Edema - NEURO Level of Consciousness: Awake, Alert, Appropriate Motor/Sensory: No Motor Deficit, No Sensory Deficit - DERM Integumentary: Warm, Dry, Rash - three sites on the right armw ithout signs of cellulitis but chronic abrasions Course - Re-evaluation Re-evalutation: 04/20/17 21:53 57-year-old female presents with evidence of chronic picking. Possibly symptomatic form of patient's bipolar disorder. 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 Discharge - Discharge Clinical Impression: Skin irritation Condition: Good Disposition: HOME, SELF-CARE Additional Instructions: Please leave you skin wounds alone (stop picking at them). they will heal on their own if left alone Cover with antibiotic ointment you have been prescribed Dress with bandaid and kepe clean/dry Follow up with [facility] and Dr. Ibanez Referrals: JOSE G IBANEZ MD [Primary Care Provider] - Follow up as needed [facility] [Provider Group] - Follow up tomorrow
== END 2017-04-20 17:51 | disposition home or self-care (01) ==
LOC: ER 16:56
DX: R21 Rash and other nonspecific skin eruption (principal); F31.9 Bipolar disorder, unspecified; E11.9 Type 2 diabetes mellitus without complications
CPT/HCPCS: 99283

== ENCOUNTER 2017-06-12 13:29 | Emergency (ER) | payer MEDICAID ==
[2017-06-12 13:33] VITALS: BP 150/93
== END 2017-06-12 13:40 | disposition left against medical advice (07) ==
LOC: ER 13:29
DX: Z53.9 Procedure and treatment not carried out, unspecified reason (principal); R19.7 Diarrhea, unspecified

== ENCOUNTER 2018-03-30 22:41 | Inpatient (IN) | payer MEDICAID ==
[2018-03-31] MEDS ORDERED: NORMAL SALINE 1000 ML 1,000 ML IV ONE ×2 (00:03→00:42)
[2018-03-31 00:15] LABS: ABSOLUTE BASOPHILS # (AUTO) 0.1 10^3/uL (0.0-0.2); ABSOLUTE EOSINOPHILS # (AUTO) 0.3 10^3/uL (0.0-0.6); ABSOLUTE LYMPHOCYTES (AUTO) 3.8 10^3/uL (0.5-4.7); ABSOLUTE MONOCYTES (AUTO) 0.8 10^3/uL (0.1-1.4); BASOPHILS % (AUTO) 0.7 % (0-2); EOSINOPHILS % (AUTO) 2.3 % (0-6); HEMATOCRIT 40.9 % (36.0-47.0); HEMOGLOBIN 13.9 g/dL (12.0-15.5); LYMPHOCYTES % (AUTO) 34.8 % (13-45); MEAN CORPUSCULAR HEMOGLOBIN 26.2 pg (27.0-33.4); MEAN CORPUSCULAR VOLUME 77 fl (80-97); MONOCYTES % (AUTO) 7.2 % (3-13); PLATELET COUNT 258 10^3/uL (150-450); RED BLOOD COUNT 5.31 10^6/uL (3.72-5.28); RED CELL DISTRIBUTION WIDTH 15.1 % (11.5-14.0); TOTAL CELLS COUNTED % (AUTO) 100 %
[2018-03-31 00:16] LABS: VENOUS BLOOD HCO3 25.8 mmol/L (20-32); VENOUS BLOOD PH 7.37 (7.30-7.42)
[2018-03-31 00:29] LABS: ALANINE AMINOTRANSFERASE 42 U/L (9-52); ALBUMIN 4.5 g/dL (3.5-5.0); ALKALINE PHOSPHATASE 106 U/L (38-126); ANION GAP 16 (5-19); ASPARTATE AMINO TRANSFERASE 43 U/L (14-36); BILIRUBIN,DIRECT 0.4 mg/dL (0.0-0.4); BILIRUBIN,TOTAL 0.5 mg/dL (0.2-1.3); BLOOD UREA NITROGEN 14 mg/dL (7-20); CALCIUM 10.7 mg/dL (8.4-10.2); CARBON DIOXIDE 25 mmol/L (22-30); CHLORIDE 104 mmol/L (98-107); CREATINE KINASE 111 U/L (30-135); GLUCOSE 116 mg/dL (75-110); SODIUM 144.8 mmol/L (137-145); TOTAL PROTEIN 7.6 g/dL (6.3-8.2)
[2018-03-31 00:31] LABS: POTASSIUM 2.8 mmol/L (3.6-5.0)
[2018-03-31 00:40] LABS: CREATINE KINASE MB 1.91 ng/mL (<4.55)
[2018-03-31 00:43] LABS: TROPONIN I 0.041 ng/mL
[2018-03-31] MEDS ORDERED: MAGNESIUM SULFATE/D5W 1 GM/100 ML RTUPB IV ONE ×2 (01:07→02:16)
[2018-03-31] MEDS ORDERED: POTASSIUM CHLORIDE 10 MEQ TABLET.SA PO ONE ×2 (01:08→04:07)
[2018-03-31 01:17] LABS: FREE T3 5.46 pg/mL (2.77-5.27); FREE T4 (FREE THYROXINE) 1.06 ng/dL (0.78-2.19)
[2018-03-31 01:31] LABS: THYROID STIMULATING HORMONE 2.57 uIU/mL (0.47-4.68)
--- NOTE | 2018-03-31 01:49 | ER Document Report ---
ED General - General Chief Complaint: General Weakness Stated Complaint: BLOOD SUGAR ISSUE Time Seen by Provider: 03/31/18 00:02 Notes: Patient is 58-year-old female presents with complaint of feeling "unwell and weak" for 1 week. They were living in [place] for the past year. They just moved back. They just refilled her medications today. She is not taking any of her meds except for her insulin. says her home blood sugars have been wavering some. Here her Accu-Chek is 115. She denies any fevers but has been nauseous and felt unwell. No headache. No abdominal pain. No chest pain. She says she has had a little bit of dysuria. She has had a little bit of diarrhea. Some nausea. No vomiting. No other complaints at this time. TRAVEL OUTSIDE OF THE [place] IN LAST 30 DAYS: No - Related Data Allergies/Adverse Reactions: hydrochlorothiazide [From Maxzide] Allergy (Verified 03/31/18 00:02) triamterene [From Maxzide] Allergy (Verified 03/31/18 00:02) Past Medical History - Social History Smoking Status: Unknown if Ever Smoked Frequency of alcohol use: None Drug Abuse: None Family History: Reviewed & Not Pertinent, DM, Malignancy - Mother had liver cancer, Other - Father of sudden arrhythmia, had cirrhosis and a liver transplant. Patient has suicidal ideation: No Patient has homicidal ideation: No - Past Medical History Cardiac Medical History: Reports: Hx Hypercholesterolemia - On no medication for same, Hx Hypertension Denies: Hx Congestive Heart Failure, Hx DVT, Hx Heart Attack, Hx Pulmonary Embolism, Hx Heart Murmur Pulmonary Medical History: Reports: Hx Bronchitis, Hx COPD, Hx Pneumonia, Hx Sleep Apnea Denies: Hx Respiratory Failure, Hx Tuberculosis Neurological Medical History: Denies: Hx Seizures Endocrine Medical History: Reports: Hx Diabetes Mellitus Type 1, Hx Diabetes Mellitus Type 2. Denies: Hx Hyperthyroidism, Hx Hypothyroidism Renal/ Medical History: Reports: Hx Renal Insufficiency - Her creatinines have remained under 1.0. Denies: Hx Peritoneal Dialysis GI Medical History: Reports: Hx Gastroesophageal Reflux Disease. Denies: Hx Cirrhosis, Hx Hepatitis, Hx Pancreatitis Musculoskeltal Medical History: Reports Hx Arthritis Skin Medical History: Denies Hx Eczema, Denies Hx Psoriasis Psychiatric Medical History: Reports: Hx Anxiety, Hx Bipolar Disorder, Hx Depression Infectious Medical History: Denies: Hx Hepatitis Past Surgical History: Reports: Hx Section - x2, Hx Tubal Ligation, Other - Laser eye surgery 2. - Immunizations Immunizations up to date: Yes Hx Diphtheria, Pertussis, Tetanus Vaccination: Yes Hx Pneumococcal Vaccination: 02/26/12 Review of Systems - Review of Systems Notes: My Normal Review Basic REVIEW OF SYSTEMS: CONSTITUTIONAL : Has felt very weak and unwell. EENT: Denies eye, ear, throat, or mouth pain or symptoms. Denies nasal or sinus congestion. CARDIOVASCULAR: Denies chest pain. RESPIRATORY: Denies cough, cold, or chest congestion. Denies shortness of breath, difficulty breathing, or wheezing. GASTROINTESTINAL: Denies abdominal pain. Nausea. Some diarrhea. GENITOURINARY: Some dysuria. MUSCULOSKELETAL: Denies neck or back pain or joint pain or swelling. SKIN: Denies rash or skin lesions. NEUROLOGICAL: Has been somewhat confused at times according to family member. Denies headache. Denies weakness or paralysis or loss of use of either side. Denies problems with gait or speech. Denies sensory or motor loss. ALL OTHER SYSTEMS REVIEWED AND NEGATIVE. Physical Exam - Vital signs Vitals: Temp Pulse Resp BP Pulse Ox 97.6 F 143 H 28 H 68/41 L 100 03/30/18 23:46 03/30/18 23:46 03/30/18 23:46 03/30/18 23:46 03/30/18 23:46 - Notes Notes: General Appearance: Well nourished, alert, cooperative, no acute distress, no obvious discomfort. Weak appearing. Mildly somnolent Vitals: reviewed, See vital signs table. Head: no swelling or tenderness to the head Eyes: PERRL, EOMI, Conjuctiva clear Mouth: No decreasd moisture Throat: No tonsillar inflammation, No airway obstruction, No lymphadenopathy Neck: Supple, no neck tenderness, No thyromegaly Lungs: No wheezing, No rales, No rhonci, No accessory muscle use, good air exchange bilaterally. Heart: Tachycardic rate, Regular rythm, No murmur, no rub Abdomen: Normal BS, soft, No rigidity, No abdominal tenderness, No guarding, no rebound, no abdominal masses, no organomegaly Extremities: strength 5/5 in all extremities, good pulses in all extremities, no swelling or tenderness in the extremities, no edema. Skin: warm, dry, appropriate color, no rash Neuro: speech clear, oriented x 3, somnolent affect, responds appropriately to questions. Cranial nerves II through XII are intact. Strength in extremities. No focal neurologic deficits. Course - Re-evaluation Re-evalutation: 03/31/18 01:45 On reevaluation patient's blood pressure is much improved. She is much more awake and more alert. She said she is feeling improved. She has strong peripheral pulses. 03/31/18 04:09 Exact cause of the patient's presentation weakness and hypotension is not clear. She did have atrial fibrillation with RVR but this responded with correction of her hypertension with IV fluids. She was not given any type of rate controlling medications. Initially thought she could be septic however she does not have a fever and I do not find any source of infection or sepsis. She does not have any chest pain. She currently says that she still feels weak but much improved as compared to when she first arrived. I did CT scan her head because she was initially somnolent but I think that is related to her hypotension as her somnolence did improve after she became normotensive. Due to the patient being very ill-appearing and very hypotensive when she first arrived I have consulted the hospitalist for evaluation for admission and observation. Did speak with Dr. Washington who agrees to evaluate the patient. Dictation of this chart was performed using voice recognition software; therefore, there may be some unintended grammatical errors. - Vital Signs Vital signs: Temp Pulse Resp BP Pulse Ox 97.3 F 143 H 17 114/68 98 03/31/18 03:40 03/30/18 23:46 03/31/18 03:02 03/31/18 03:02 03/31/18 03:02 - Laboratory Result Diagrams: 03/30/18 23:59 03/30/18 23:59 Laboratory results interpreted by me: 03/30/18 03/30/18 03/30/18 23:59 23:59 23:59 WBC 11.0 H RBC 5.31 H MCV 77 L MCH 26.2 L RDW 15.1 H Potassium 2.8 L* Creatinine 1.74 H Est GFR ( Amer) 37 L Est GFR (Non-Af Amer) 30 L Glucose 116 H Lactic Acid 2.4 H Calcium 10.7 H Magnesium AST 43 H Free T3 pg/mL Urine Protein Urine Glucose (UA) Urine Bilirubin Urine Urobilinogen Ur Leukocyte Esterase 03/30/18 03/30/18 03/31/18 23:59 23:59 01:30 WBC RBC MCV MCH RDW Potassium Creatinine Est GFR ( Amer) Est GFR (Non-Af Amer) Glucose Lactic Acid Calcium Magnesium 1.5 L AST Free T3 pg/mL 5.46 H Urine Protein 100 H Urine Glucose (UA) >=500 H Urine Bilirubin SMALL H Urine Urobilinogen 2.0 H Ur Leukocyte Esterase SMALL H - EKG Interpretation by Me Additional EKG results interpreted by me: 03/31/18 01:44 EKG is reviewed and interpreted by me. EKG shows A. fib with a rate of [address] segment elevation or depression. No ischemic T-wave inversions. QRS duration is within normal range. QTc interval is prolonged. Old EKG for comparison is from December 30, 2016. 03/31/18 03:14 EKG #2 is reviewed and interpreted by me. EKG shows normal sinus rhythm with a rate of [address] segment elevation or depression. No ischemic T-wave inversions. RI interval, QRS duration are within normal range. QTc interval still prolonged. Discharge - Discharge Clinical Impression: Weakness, Hypomagnesemia Hypotension Qualifiers: Hypotension type: unspecified hypotension type Qualified Code(s): I95.9 - Hypotension, unspecified Atrial fibrillation Qualifiers: Atrial fibrillation type: paroxysmal Qualified Code(s): I48.0 - Paroxysmal atrial fibrillation Condition: Stable Disposition: ADMITTED OBSERVATION Admitting Provider: Hospitalist Unit Admitted: [facility]
[2018-03-31 01:50] LABS: APPEARANCE,URINE CLOUDY; BILIRUBIN,URINE SMALL (NEGATIVE); COLOR,URINE AMBER; GLUCOSE, URINE >=500 mg/dL (NEGATIVE); KETONES,URINE NEGATIVE (NEGATIVE); LEUKOCYTE ESTERASE,URINE SMALL (NEGATIVE); NITRITE,URINE NEGATIVE (NEGATIVE); PROTEIN,URINE 100 mg/dL (NEGATIVE); URINE SPECIFIC GRAVITY 1.024
[2018-03-31] MEDS: POTASSI CL 20 MEQ/50 ML RIDER 20 MEQ/50 ML RTUPB IV SCH ×2 (01:50→03:46)
--- NOTE | 2018-03-31 02:15 | RADIOLOGY REPORT (SQ) ---
EXAM DESCRIPTION: XR CHEST 1 VIEW CLINICAL HISTORY: 58 years Female, septic COMPARISON: 2.24.17 NUMBER OF VIEWS/TECHNIQUE: 1/AP FINDINGS: Adequate lung volume, clear parenchyma, normal cardiac silhouette, and intact bony thorax. IMPRESSION: No acute cardiopulmonary findings.
--- NOTE | 2018-03-31 03:53 | RADIOLOGY REPORT (SQ) ---
EXAM DESCRIPTION: CT HEAD WITHOUT IV CONTRAST CLINICAL HISTORY: 58 years Female, weakness COMPARISON: 2.25.17 TECHNIQUE: No contrast. Coronal and sagittal reformat. This exam was performed according to our departmental dose-optimization program, which includes automated exposure control, adjustment of the mA and/or kV according to patient size and/or use of iterative reconstruction technique. FINDINGS: No hemorrhage or infarct. No mass, mass effect, or midline shift. 2.1 cm right maxillary retention cyst-mucocele. Atherosclerosis. Brain and extra-axial structures appear otherwise intact. IMPRESSION: No acute findings.
[2018-03-31] MEDS ORDERED: CLONAZEPAM 1 MG TABLET PO PRN (04:06)
[2018-03-31] MEDS ORDERED: DEXTROSE 40% GEL 15 GM TUBE PO PRN ×2 (04:07)
[2018-03-31] MEDS ORDERED: ACETAMINOPHEN 325 MG TABLET PO PRN (04:07)
[2018-03-31] MEDS ORDERED: GLUCAGON,HUMAN RECOMB 1 MG INJ IM PRN (04:07)
[2018-03-31] MEDS ORDERED: IPRATROPIUM/ALBUTEROL 0.5-2.5 MG/3 ML AMPUL NEB PRN (04:07)
[2018-03-31] MEDS ORDERED: DEXTROSE 50%-WATER 25 GM/50 ML DISP.SYRIN IV PRN ×2 (04:07)
[2018-03-31] MEDS ORDERED: POTASSI CL 20 MEQ/50 ML RIDER 20 MEQ/50 ML RTUPB IV SCH (04:15)
[2018-03-31 04:42] LABS: ABSOLUTE EOSINOPHILS # (AUTO) 0.1 10^3/uL (0.0-0.6); ABSOLUTE LYMPHOCYTES (AUTO) 1.7 10^3/uL (0.5-4.7); ABSOLUTE MONOCYTES (AUTO) 0.3 10^3/uL (0.1-1.4); ABSOLUTE NEUT (AUTO) 2.6 10^3/uL (1.7-8.2); BASOPHILS % (AUTO) 0.6 % (0-2); EOSINOPHILS % (AUTO) 1.8 % (0-6); HEMATOCRIT 34.4 % (36.0-47.0); MEAN CORPUSCULAR HEMOGLOBIN 26.2 pg (27.0-33.4); MEAN CORPUSCULAR HGB CONC 34.1 g/dL (32.0-36.0); MEAN CORPUSCULAR VOLUME 77 fl (80-97); MONOCYTES % (AUTO) 6.5 % (3-13); PLATELET COUNT 126 10^3/uL (150-450); RED BLOOD COUNT 4.48 10^6/uL (3.72-5.28); RED CELL DISTRIBUTION WIDTH 14.9 % (11.5-14.0); SEGMENTED NEUTROPHILS % (AUTO) 55.1 % (42-78); TOTAL CELLS COUNTED % (AUTO) 100 %; WHITE BLOOD COUNT 4.6 10^3/uL (4.0-10.5)
[2018-03-31] MEDS ORDERED: PHOSPHORUS #1 250 MG TABLET PO SCH (04:45)
[2018-03-31 04:49] LABS: ANION GAP 12 (5-19); BLOOD UREA NITROGEN 14 mg/dL (7-20); CALCIUM 9.3 mg/dL (8.4-10.2); CARBON DIOXIDE 24 mmol/L (22-30); CHLORIDE 110 mmol/L (98-107); GLUCOSE 104 mg/dL (75-110); POTASSIUM 3.1 mmol/L (3.6-5.0); SODIUM 145.5 mmol/L (137-145)
[2018-03-31 04:50] LABS: HEMOGLOBIN 11.7 g/dL (12.0-15.5)
[2018-03-31] MEDS: NORMAL SALINE 1000 ML 1,000 ML IV PRN ×4 (05:43→17:29)
[2018-03-31 06:08] LABS: URINE AMPHETAMINES SCREEN NEGATIVE; URINE BARBITURATES SCREEN NEGATIVE; URINE BENZODIAZEPINES SCREEN UNCONFIRMED POSITIVE; URINE COCAINE SCREEN NEGATIVE; URINE MARIJUANA (THC) SCREEN NEGATIVE; URINE METHADONE SCREEN NEGATIVE; URINE PHENCYCLIDINE SCREEN NEGATIVE
[2018-03-31] MEDS: HEPARIN SOD (PORCINE) 5,000 UNIT/ML 1 ML SYRINGE SUBCUT SCH ×3 (06:36→21:35)
--- NOTE | 2018-03-31 06:53 | PDOC H&P ---
History of Present Illness Admission Date/PCP: 03/31/18 04:13 JOSE G CELIS MD Patient complains of: Generalized weakness History of Present Illness: ALEJO ABBASI is a 58 year old female with history of atrial fibrillation, diabetes, tobacco, noncompliance, prescription drug abuse depression, anxiety, benzodiazepine dependence and well-documented recurrent presentations with altered mental status with spontaneous resolution with supportive care. Patient presents with vague symptoms, hypotension urine drug screen positive benzodiazepine though denies benzodiazepine use. Social history is unchanged from multiple previous presentations of intrastate transients, living in a car. Her workup reveals hyperglycemia, acute renal failure and hypo-kalemia. She denies fever chills nausea vomiting. Patient and partner at bedside give multiple contradictory statements. Past Medical History Cardiac Medical History: Reports: Hyperlipidema - On no medication for same, Hypertension Denies: Congestive Heart Failure, DVT, Myocardial Infarction, Pulmonary Embolism, Heart Murmur Pulmonary Medical History: Reports: Bronchitis, Chronic Obstructive Pulmonary Disease (COPD), Pneumonia, Sleep Apnea Denies: Respiratory Failure, Tuberculosis Neurological Medical History: Denies: Seizures Endocrine Medical History: Reports: Diabetes Mellitus Type 1, Diabetes Mellitus Type 2 Denies: Hyperthyroidism, Hypothyroidism GI Medical History: Reports: Gastroesophageal Reflux Disease Denies: Cirrhosis, Hepatitis Musculoskeltal Medical History: Reports: Arthritis Skin Medical History: Denies: Eczema, Psoriasis Psychiatric Medical History: Reports: Bipolar Disorder, Depression Hematology: Reports: Anemia Denies: Hemophilia, Sickle Cell Disease Past Surgical History Past Surgical History: Reports: Section - x2, Tubal Ligation, Other - Laser eye surgery 2. Denies: Amputation Social History Information Source: Patient Lives with: Spouse/Significant other Smoking Status: Unknown if Ever Smoked Frequency of Alcohol Use: None Hx Recreational Drug Use: No Drugs: None Hx Prescription Drug Abuse: No - Advance Directive Resuscitation Status: Full Code Family History Family History: Reviewed & Not Pertinent, DM, Malignancy - Mother had liver cancer, Other - Father of sudden arrhythmia, had cirrhosis and a liver transplant. Parental Family History Reviewed: Yes Children Family History Reviewed: Yes Sibling(s) Family History Reviewed.: Yes Medication/Allergy Home Medications: Bupropion HCl [Bupropion HCl Sr] 150 mg PO DAILY 12/31/16 Gabapentin [Neurontin 300 mg Capsule] 4 cap PO TID 12/31/16 Insulin Aspart [Novolog Flexpen] 0 units SUBCUT ASDIR PRN 12/31/16 Insulin Detemir [Levemir Insulin 100 units/mL] 80 units SUBCUT BID 12/31/16 Lorazepam [Ativan 0.5 mg Tablet] 1 tab PO DAILY 12/31/16 Lorazepam [Ativan 1 mg Tablet] 0.5 tab PO Q6HP PRN 12/31/16 Pantoprazole Sodium [Protonix] 20 mg PO DAILY 12/31/16 Quetiapine Fumarate [Seroquel 100 mg Tablet] 1 tab PO DAILY 12/31/16 Quetiapine Fumarate [Seroquel 100 mg Tablet] 1 tab PO DAILY 12/31/16 Quetiapine Fumarate [Seroquel] 200 mg PO QAM 12/31/16 Quetiapine Fumarate [Seroquel] 400 mg PO QPM 12/31/16 Ropinirole HCl [Requip] 3 mg PO TID 12/31/16 Allergies/Adverse Reactions: hydrochlorothiazide [From Maxzide] Allergy (Verified 03/31/18 00:02) triamterene [From Maxzide] Allergy (Verified 03/31/18 00:02) Review of Systems ROS unobtainable: Due to mental status, Other - Patient is an unreliable historian with contradictory answers Physical Exam Vital Signs: Temp Pulse Resp BP Pulse Ox 98.5 F 86 17 131/63 H 92 03/31/18 06:15 03/31/18 06:15 03/31/18 06:15 03/31/18 06:15 03/31/18 06:15 Intake & Output 03/29/18 03/30/18 03/31/18 11:59 11:59 11:59 Weight 92.7 kg General appearance: PRESENT: no acute distress, well-developed, well-nourished Head exam: PRESENT: atraumatic, normocephalic Eye exam: PRESENT: conjunctiva pink, EOMI, PERRLA. ABSENT: scleral icterus Ear exam: PRESENT: normal external ear exam Mouth exam: PRESENT: moist, tongue midline Neck exam: ABSENT: carotid bruit, JVD, lymphadenopathy, thyromegaly Respiratory exam: PRESENT: clear to auscultation sami. ABSENT: rales, rhonchi, wheezes Cardiovascular exam: PRESENT: RRR. ABSENT: diastolic murmur, rubs, systolic murmur Pulses: PRESENT: normal dorsalis pedis pul Vascular exam: PRESENT: normal capillary refill GI/Abdominal exam: PRESENT: normal bowel sounds, soft. ABSENT: distended, guarding, mass, organolmegaly, rebound, tenderness Rectal exam: PRESENT: deferred Extremities exam: PRESENT: full ROM. ABSENT: calf tenderness, clubbing, pedal edema Neurological exam: PRESENT: alert, awake, oriented to person, oriented to place , oriented to time, oriented to situation, CN II-XII grossly intact. ABSENT: motor sensory deficit Psychiatric exam: PRESENT: appropriate affect, normal mood. ABSENT: homicidal ideation, suicidal ideation Skin exam: PRESENT: dry, intact, warm. ABSENT: cyanosis, rash Results Impressions: Chest X-Ray 03/31/18 00:04 IMPRESSION: No acute cardiopulmonary findings. Head CT 03/31/18 02:19 IMPRESSION: No acute findings. Assessment & Plan - Diagnosis (1) Atrial fibrillation Qualifiers: Atrial fibrillation type: paroxysmal Qualified Code(s): I48.0 - Paroxysmal atrial fibrillation Is this a current diagnosis for this admission?: Yes Plan: Secondary to noncompliance. Resolution with IV fluid challenge. Correct hypokalemia, consider Cardizem (2) Hypomagnesemia Is this a current diagnosis for this admission?: Yes Plan: Repletion and reevaluation (3) Hypotension Qualifiers: Hypotension type: unspecified hypotension type Qualified Code(s): I95.9 - Hypotension, unspecified Is this a current diagnosis for this admission?: Yes Plan: Secondary to prerenal azotemia with glucosuria resolved with IV fluid challenge. Orthostatic blood pressures pending (4) Hyperglycemia Is this a current diagnosis for this admission?: Yes Plan: Evaluate A1c, sliding scale and long-acting insulin ordered (5) Hypokalemia Is this a current diagnosis for this admission?: Yes Plan: Replete magnesium and potassium as needed (6) Medical non-compliance Is this a current diagnosis for this admission?: Yes Plan: Education, recurrent presentations with altered mental status that resolved with supportive care, denial of benzodiazepine use, state to state transients, concerning for abuse. Consider database query and benzodiazepine weaning. - Time Time Spent: 50 to 70 Minutes - Inpatient Certification Medical Necessity: Need Close Monitoring Due to Risk of Patient Decompensation
--- NOTE | 2018-03-31 07:14 | EKG REPORT ---
SEVERITY:- ABNORMAL ECG - SINUS RHYTHM LEFT ANTERIOR FASCICULAR BLOCK PROBABLE LEFT VENTRICULAR HYPERTROPHY PROLONGED QT INTERVAL : Confirmed by: Ean Minaya MD 31-Mar-2018 07:14:05
--- NOTE | 2018-03-31 07:16 | EKG REPORT ---
SEVERITY:- ABNORMAL ECG - ATRIAL FIBRILLATION LEFT ANTERIOR FASCICULAR BLOCK PROBABLE LVH WITH SECONDARY REPOL ABNRM PROLONGED QT INTERVAL : Confirmed by: Ean Minaya MD 31-Mar-2018 07:15:58
[2018-03-31] MEDS ORDERED: QUETIAPINE FUMARATE 100 MG TABLET PO SCH (08:00)
[2018-03-31] MEDS: DOCUSATE SODIUM 100 MG CAPSULE PO SCH ×2 (08:55→17:23)
[2018-03-31] MEDS ORDERED: GABAPENTIN 300 MG CAPSULE PO SCH (10:00)
[2018-03-31] MEDS ORDERED: ALBUTEROL SULFATE HFA (90 MCG/PUFF) 8 GM MDI (1 MDI/ER DISP) IH PRN (14:28)
[2018-03-31] MEDS ORDERED: LORAZEPAM 1 MG TABLET PO PRN (14:28)
[2018-03-31] MEDS ORDERED: (PENDING PHARMACY ID) (Pantoprazole Sodium [Protonix] 20 MG) PO SCH (14:30)
[2018-03-31] MEDS ORDERED: (PENDING PHARMACY ID) (Bupropion Hcl [Bupropion Xl] 300 MG) PO SCH (14:30)
[2018-03-31] MEDS ORDERED: (PENDING PHARMACY ID) (Metformin Hcl [Metformin Hcl Er] 500 MG) PO SCH (14:30)
[2018-03-31] MEDS ORDERED: ROPINIROLE HCL 3 MG PO SCH (14:30)
[2018-03-31] MEDS ORDERED: (PENDING PHARMACY ID) (Propranolol Hcl [Propranolol Hcl Er] 120 MG) PO SCH ×2 (14:30→15:00)
[2018-03-31] MEDS ORDERED: ALBUTEROL SULFATE HFA (90 MCG/PUFF) 200 PUFF/8.5 GM MDI IH PRN (15:35)
[2018-03-31] MEDS ORDERED: LISINOPRIL 5 MG TABLET PO ONE (16:00)
[2018-03-31] MEDS ORDERED: GABAPENTIN 300 MG CAPSULE PO ONE (16:00)
[2018-03-31] MEDS: POTASSIUM CHLORIDE 10 MEQ TABLET.SA PO SCH ×2 (17:24→21:35)
[2018-03-31] MEDS: BUPROPION HCL 100 MG TABLET PO SCH (17:25)
[2018-03-31] MEDS: MAGNESIUM OXIDE 400 MG TABLET PO SCH ×2 (17:25→17:29)
[2018-03-31] MEDS: INSULIN LISPRO 100 UNIT/ML 3 ML VIAL SUBCUT PRN (21:34)
[2018-03-31] MEDS: ROPINIROLE HCL 1 MG TABLET PO SCH (21:35)
[2018-03-31] MEDS: QUETIAPINE FUMARATE 100 MG TABLET PO SCH (21:35)
[2018-03-31] MEDS: DULOXETINE HCL 30 MG CAPSULE.DR PO SCH (21:35)
[2018-03-31] MEDS: GABAPENTIN 300 MG CAPSULE PO SCH (21:35)
[2018-03-31] MEDS ORDERED: (PENDING PHARMACY ID) (Quetiapine Fumarate [Seroquel] 400 MG) PO SCH (22:00)
[2018-04-01 05:55] LABS: ABSOLUTE EOSINOPHILS # (AUTO) 0.1 10^3/uL (0.0-0.6); ABSOLUTE LYMPHOCYTES (AUTO) 1.2 10^3/uL (0.5-4.7); ABSOLUTE MONOCYTES (AUTO) 0.1 10^3/uL (0.1-1.4); ABSOLUTE NEUT (AUTO) 0.7 10^3/uL (1.7-8.2); BASOPHILS % (AUTO) 0.9 % (0-2); EOSINOPHILS % (AUTO) 4.2 % (0-6); HEMATOCRIT 30.6 % (36.0-47.0); HEMOGLOBIN 10.4 g/dL (12.0-15.5); LYMPHOCYTES % (AUTO) 57.7 % (13-45); MEAN CORPUSCULAR HEMOGLOBIN 26.3 pg (27.0-33.4); MEAN CORPUSCULAR VOLUME 77 fl (80-97); MONOCYTES % (AUTO) 5.2 % (3-13); RED BLOOD COUNT 3.96 10^6/uL (3.72-5.28); TOTAL CELLS COUNTED % (AUTO) 100 %
[2018-04-01] MEDS: POTASSIUM CHLORIDE 10 MEQ TABLET.SA PO SCH (06:01)
[2018-04-01] MEDS: GABAPENTIN 300 MG CAPSULE PO SCH ×3 (06:01→21:38)
[2018-04-01] MEDS: ROPINIROLE HCL 1 MG TABLET PO SCH ×3 (06:01→21:39)
[2018-04-01] MEDS: LANSOPRAZOLE 15 MG TAB.RAP.DR PO SCH (06:01)
[2018-04-01] MEDS: HEPARIN SOD (PORCINE) 5,000 UNIT/ML 1 ML SYRINGE SUBCUT SCH ×3 (06:02→21:41)
[2018-04-01 06:18] LABS: WHITE BLOOD COUNT 2.1 10^3/uL (4.0-10.5)
[2018-04-01 06:19] LABS: PLATELET COUNT 91 10^3/uL (150-450)
[2018-04-01 06:30] LABS: ANION GAP 7 (5-19); BLOOD UREA NITROGEN 12 mg/dL (7-20); CARBON DIOXIDE 24 mmol/L (22-30); CHLORIDE 112 mmol/L (98-107); GLUCOSE 222 mg/dL (75-110); POTASSIUM 4.6 mmol/L (3.6-5.0)
[2018-04-01] MEDS ORDERED: (PENDING PHARMACY ID) (Quetiapine Fumarate [Seroquel] 200 MG) PO SCH (08:00)
[2018-04-01] MEDS: DULOXETINE HCL 30 MG CAPSULE.DR PO SCH ×2 (08:19→21:38)
[2018-04-01] MEDS: BUPROPION HCL 100 MG TABLET PO SCH ×3 (08:19→18:32)
[2018-04-01] MEDS: QUETIAPINE FUMARATE 100 MG TABLET PO SCH ×2 (08:20→21:37)
[2018-04-01] MEDS: MAGNESIUM OXIDE 400 MG TABLET PO SCH ×3 (08:20→18:33)
[2018-04-01] MEDS: METFORMIN HCL 500 MG TABLET PO SCH (08:22)
[2018-04-01] MEDS: LISINOPRIL 5 MG TABLET PO SCH (08:23)
[2018-04-01] MEDS: INSULIN LISPRO 100 UNIT/ML 3 ML VIAL SUBCUT PRN ×4 (08:25→21:46)
[2018-04-01] MEDS: ONDANSETRON HCL INJ/PF 4 MG/2 ML SDV IV PRN ×2 (08:30→20:42)
[2018-04-01] MEDS: DOCUSATE SODIUM 100 MG CAPSULE PO SCH ×2 (08:31→18:34)
--- NOTE | 2018-04-01 10:35 | PDOC PROGRESS REPORT ---
Subjective Progress Note for:: 04/01/18 Subjective:: Feeling better, altered mental status improved. Antibiotic use, no cough or hemoptysis, no chest pain or shortness of breath or palpitations. Denies dizziness, no seizures. at bedside. Reason For Visit: HYPOTENSION HYPOKALEMIA PAFIB Physical Exam Vital Signs: Temp Pulse Resp BP Pulse Ox 97.4 F 83 16 171/96 H 96 04/01/18 07:19 04/01/18 08:54 04/01/18 08:54 04/01/18 07:19 04/01/18 08:54 Intake & Output 03/31/18 04/01/18 04/02/18 06:59 06:59 06:59 Intake Total 4427 Output Total 0 Balance 4427 Weight 92.7 kg 96 kg GEN: NAD, well-developed, well-nourished CV: RRR, NL S1S2 LUNGS: CTA bilaterally ABDOMEN Soft, NT, +BS EXTERMITIES: No e/c/c NEURO: Alert, oriented 3, nonfocal Results Laboratory Results: 04/01/18 05:19 04/01/18 05:19 04/01/18 04/01/18 05:19 05:19 WBC 2.1 L D RBC 3.96 Hgb 10.4 L Hct 30.6 L MCV 77 L MCH 26.3 L MCHC 34.0 RDW 15.0 H Plt Count 91 L Seg Neutrophils % 32.0 L Lymphocytes % 57.7 H Monocytes % 5.2 Eosinophils % 4.2 Basophils % 0.9 Absolute Neutrophils 0.7 L Absolute Lymphocytes 1.2 Absolute Monocytes 0.1 Absolute Eosinophils 0.1 Absolute Basophils 0.0 Sodium 143.0 Potassium 4.6 Chloride 112 H Carbon Dioxide 24 Anion Gap 7 BUN 12 Creatinine 0.67 Est GFR ( Amer) > 60 Est GFR (Non-Af Amer) > 60 Glucose 222 H Calcium 9.0 Magnesium 1.5 L Impressions: Chest X-Ray 03/31/18 00:04 IMPRESSION: No acute cardiopulmonary findings. Head CT 03/31/18 02:19 IMPRESSION: No acute findings. Assessment & Plan - Plan Summary Plan Summary: (1) Atrial fibrillation Qualifiers: Atrial fibrillation type: paroxysmal Qualified Code(s): I48.0 - Paroxysmal atrial fibrillation Is this a current diagnosis for this admission?: Yes Plan: Secondary to noncompliance. Has resolved with IV fluid challenge. (2) Hypomagnesemia Is this a current diagnosis for this admission?: Yes Plan: Continue magnesium oxide 800 mg every 8 hours. Follow-up level in a.m. (3) Hypotension Qualifiers: Hypotension type: unspecified hypotension type Qualified Code(s): I95.9 - Hypotension, unspecified Is this a current diagnosis for this admission?: Yes Plan: Secondary to prerenal azotemia with glucosuria resolved with IV fluid challenge. (4) Hyperglycemia Is this a current diagnosis for this admission?: Yes Plan: Hemoglobin A1c is 10.3, sliding scale and long acting insulin. (5) Hypokalemia Is this a current diagnosis for this admission?: Yes Plan: Repleting magnesium, replete potassium as needed (6) Medical non-compliance Is this a current diagnosis for this admission?: Yes Plan: Continued education education, benzodiazepine weaning due to recurrent presentations with altered mental status. (7) pancytopenia Is this a current diagnosis for this admission?: Yes Plan: Questionable due to hemodilution. We will follow-up CBC.
[2018-04-01] MEDS ORDERED: ENALAPRILAT DIHYDRATE INJ/PF 1.25 MG/1 ML SDV IV ONE (20:30)
[2018-04-02 05:07] LABS: ABSOLUTE EOSINOPHILS # (AUTO) 0.1 10^3/uL (0.0-0.6); ABSOLUTE LYMPHOCYTES (AUTO) 1.2 10^3/uL (0.5-4.7); ABSOLUTE MONOCYTES (AUTO) 0.1 10^3/uL (0.1-1.4); ABSOLUTE NEUT (AUTO) 1.2 10^3/uL (1.7-8.2); BASOPHILS % (AUTO) 0.4 % (0-2); EOSINOPHILS % (AUTO) 2.8 % (0-6); HEMATOCRIT 31.2 % (36.0-47.0); HEMOGLOBIN 10.5 g/dL (12.0-15.5); LYMPHOCYTES % (AUTO) 45.3 % (13-45); MEAN CORPUSCULAR HEMOGLOBIN 25.9 pg (27.0-33.4); MEAN CORPUSCULAR HGB CONC 33.6 g/dL (32.0-36.0); MEAN CORPUSCULAR VOLUME 77 fl (80-97); MONOCYTES % (AUTO) 4.6 % (3-13); PLATELET COUNT 100 10^3/uL (150-450); RED BLOOD COUNT 4.05 10^6/uL (3.72-5.28); RED CELL DISTRIBUTION WIDTH 14.9 % (11.5-14.0); SEGMENTED NEUTROPHILS % (AUTO) 46.9 % (42-78); TOTAL CELLS COUNTED % (AUTO) 100 %; WHITE BLOOD COUNT 2.6 10^3/uL (4.0-10.5)
[2018-04-02 05:33] LABS: ANION GAP 8 (5-19); BLOOD UREA NITROGEN 9 mg/dL (7-20); CALCIUM 9.6 mg/dL (8.4-10.2); CARBON DIOXIDE 29 mmol/L (22-30); CHLORIDE 103 mmol/L (98-107); GLUCOSE 219 mg/dL (75-110); POTASSIUM 5.1 mmol/L (3.6-5.0); SODIUM 139.9 mmol/L (137-145)
[2018-04-02] MEDS: GABAPENTIN 300 MG CAPSULE PO SCH ×3 (05:44→22:05)
[2018-04-02] MEDS: ROPINIROLE HCL 1 MG TABLET PO SCH ×3 (05:45→22:03)
[2018-04-02] MEDS: HEPARIN SOD (PORCINE) 5,000 UNIT/ML 1 ML SYRINGE SUBCUT SCH ×2 (05:45→13:27)
[2018-04-02] MEDS: LANSOPRAZOLE 15 MG TAB.RAP.DR PO SCH (05:45)
[2018-04-02] MEDS: QUETIAPINE FUMARATE 100 MG TABLET PO SCH ×2 (08:31→22:02)
[2018-04-02] MEDS: INSULIN LISPRO 100 UNIT/ML 3 ML VIAL SUBCUT PRN ×4 (08:58→22:02)
[2018-04-02] MEDS: MAGNESIUM OXIDE 400 MG TABLET PO SCH ×3 (09:39→17:22)
[2018-04-02] MEDS: BUPROPION HCL 100 MG TABLET PO SCH ×3 (09:39→17:22)
[2018-04-02] MEDS: LISINOPRIL 5 MG TABLET PO SCH (09:39)
[2018-04-02] MEDS: METFORMIN HCL 500 MG TABLET PO SCH (09:40)
[2018-04-02] MEDS: DULOXETINE HCL 30 MG CAPSULE.DR PO SCH ×2 (09:40→22:03)
[2018-04-02] MEDS: DOCUSATE SODIUM 100 MG CAPSULE PO SCH ×2 (09:40→17:22)
[2018-04-02 11:24] LABS: ANION GAP 8 (5-19); BLOOD UREA NITROGEN 9 mg/dL (7-20); CALCIUM 9.5 mg/dL (8.4-10.2); CARBON DIOXIDE 26 mmol/L (22-30); CHLORIDE 102 mmol/L (98-107); GLUCOSE 259 mg/dL (75-110); POTASSIUM 4.9 mmol/L (3.6-5.0); SODIUM 136.3 mmol/L (137-145)
[2018-04-02] MEDS ORDERED: MAG HYDROX/AL HYDROX/SIMETH SUSP 30 ML UDCUP PO PRN (15:02)
[2018-04-02] MEDS ORDERED: NITROGLYCERIN 0.4 MG/TAB 25 TAB/BOTTLE SL PRN (16:05)
[2018-04-02] MEDS ORDERED: NITROGLYCERIN 0.4 MG/TAB 25 TAB/BOTTLE ONE (16:06)
--- NOTE | 2018-04-02 16:41 | EKG REPORT ---
SEVERITY:- ABNORMAL ECG - SINUS RHYTHM SHORT DC INTERVAL, ACCELERATED AV CONDUCTION LEFT AXIS DEVIATION LVH WITH SECONDARY REPOLARIZATION ABNORMALITY ANTERIOR Q WAVES, POSSIBLY DUE TO LVH : Confirmed by: Holli Interiano 02-Apr-2018 16:40:39
--- NOTE | 2018-04-02 17:30 | PDOC PROGRESS REPORT ---
Subjective Progress Note for:: 04/02/18 Subjective:: Feeling better, altered mental status improved. Had some epigastric discomfort/ indigestion, treated with Maalox which helped. Pain was reproducible with palpation. EKG with no ischemia. Patient denies cough or hemoptysis, no chest pain or shortness of breath or palpitations. Denies dizziness, no seizures. Son at bedside. Reason For Visit: HYPOTENSION HYPOKALEMIA PAFIB Physical Exam Vital Signs: Temp Pulse Resp BP Pulse Ox 98.4 F 82 20 159/99 H 95 04/02/18 11:22 04/02/18 14:00 04/02/18 11:22 04/02/18 16:28 04/02/18 11:22 Intake & Output 04/01/18 04/02/18 04/03/18 06:59 06:59 06:59 Intake Total 4427 701 360 Output Total 0 0 900 Balance 4427 701 -540 Weight 96 kg 92.5 kg GEN: NAD, well-developed, well-nourished CV: RRR, NL S1S2 LUNGS: CTA bilaterally ABDOMEN Soft, mild epigastric discomfort, +BS EXTERMITIES: No e/c/c NEURO: Alert, oriented 3, nonfocal Results Laboratory Results: 04/02/18 04:16 04/02/18 10:54 04/02/18 04/02/18 04/02/18 04:16 04:16 10:54 WBC 2.6 L RBC 4.05 Hgb 10.5 L Hct 31.2 L MCV 77 L MCH 25.9 L MCHC 33.6 RDW 14.9 H Plt Count 100 L Seg Neutrophils % 46.9 Lymphocytes % 45.3 H Monocytes % 4.6 Eosinophils % 2.8 Basophils % 0.4 Absolute Neutrophils 1.2 L Absolute Lymphocytes 1.2 Absolute Monocytes 0.1 Absolute Eosinophils 0.1 Absolute Basophils 0.0 Sodium 139.9 136.3 L Potassium 5.1 H 4.9 Chloride 103 102 Carbon Dioxide 29 26 Anion Gap 8 8 BUN 9 9 Creatinine 0.65 0.57 Est GFR ( Amer) > 60 > 60 Est GFR (Non-Af Amer) > 60 > 60 Glucose 219 H 259 H Calcium 9.6 9.5 Magnesium 1.5 L Impressions: Chest X-Ray 03/31/18 00:04 IMPRESSION: No acute cardiopulmonary findings. Head CT 03/31/18 02:19 IMPRESSION: No acute findings. Assessment & Plan - Plan Summary Plan Summary: (1) Atrial fibrillation Qualifiers: Atrial fibrillation type: paroxysmal Qualified Code(s): I48.0 - Paroxysmal atrial fibrillation Is this a current diagnosis for this admission?: Yes Plan: Secondary to noncompliance. Has resolved with IV fluid challenge. Heart rate has since been normal. (2) Hypomagnesemia Is this a current diagnosis for this admission?: Yes Plan: Continue magnesium oxide every 8 hours. Follow-up level in a.m. (3) Hypotension Qualifiers: Hypotension type: unspecified hypotension type Qualified Code(s): I95.9 - Hypotension, unspecified Is this a current diagnosis for this admission?: Yes Plan: Secondary to prerenal azotemia with glucosuria resolved with IV fluid challenge. (4) Hyperglycemia Is this a current diagnosis for this admission?: Yes Plan: Hemoglobin A1c is 10.3, sliding scale and long acting insulin. (5) Hypokalemia Is this a current diagnosis for this admission?: Yes Plan: Repleting magnesium, replete potassium as needed (6) Medical non-compliance Is this a current diagnosis for this admission?: Yes Plan: Continued education education, benzodiazepine weaning due to recurrent presentations with altered mental status. -Possible discharge in a.m. if stable and care management working with assisting patient with how to refill her medications. (7) pancytopenia Is this a current diagnosis for this admission?: Yes Plan: Questionable due to hemodilution. Follow-up CBC today has stabilized. Will follow up in a.m.
[2018-04-02] MEDS ORDERED: MAGNESIUM OXIDE 400 MG TABLET PO ONE (19:00)
[2018-04-02] MEDS ORDERED: PROPRANOLOL HCL 20 MG TABLET PO ONE (21:45)
[2018-04-03] MEDS: LANSOPRAZOLE 15 MG TAB.RAP.DR PO SCH (05:06)
[2018-04-03] MEDS: GABAPENTIN 300 MG CAPSULE PO SCH (05:07)
[2018-04-03] MEDS: ROPINIROLE HCL 1 MG TABLET PO SCH (05:07)
[2018-04-03 06:30] LABS: ABSOLUTE EOSINOPHILS # (AUTO) 0.1 10^3/uL (0.0-0.6); ABSOLUTE LYMPHOCYTES (AUTO) 1.9 10^3/uL (0.5-4.7); ABSOLUTE MONOCYTES (AUTO) 0.2 10^3/uL (0.1-1.4); ABSOLUTE NEUT (AUTO) 1.2 10^3/uL (1.7-8.2); BASOPHILS % (AUTO) 0.8 % (0-2); EOSINOPHILS % (AUTO) 3.1 % (0-6); HEMATOCRIT 33.1 % (36.0-47.0); HEMOGLOBIN 11.4 g/dL (12.0-15.5); LYMPHOCYTES % (AUTO) 55.4 % (13-45); MEAN CORPUSCULAR HEMOGLOBIN 26.3 pg (27.0-33.4); MEAN CORPUSCULAR HGB CONC 34.4 g/dL (32.0-36.0); MEAN CORPUSCULAR VOLUME 77 fl (80-97); MONOCYTES % (AUTO) 5.6 % (3-13); PLATELET COUNT 128 10^3/uL (150-450); RED BLOOD COUNT 4.33 10^6/uL (3.72-5.28); RED CELL DISTRIBUTION WIDTH 14.9 % (11.5-14.0); SEGMENTED NEUTROPHILS % (AUTO) 35.1 % (42-78); TOTAL CELLS COUNTED % (AUTO) 100 %; WHITE BLOOD COUNT 3.5 10^3/uL (4.0-10.5)
[2018-04-03 06:51] LABS: ANION GAP 10 (5-19); BLOOD UREA NITROGEN 11 mg/dL (7-20); CARBON DIOXIDE 32 mmol/L (22-30); CHLORIDE 99 mmol/L (98-107); GLUCOSE 183 mg/dL (75-110); POTASSIUM 4.5 mmol/L (3.6-5.0); SODIUM 141.4 mmol/L (137-145)
[2018-04-03] MEDS: QUETIAPINE FUMARATE 100 MG TABLET PO SCH (09:33)
[2018-04-03] MEDS: LISINOPRIL 5 MG TABLET PO SCH (09:34)
[2018-04-03] MEDS: DOCUSATE SODIUM 100 MG CAPSULE PO SCH (09:34)
[2018-04-03] MEDS: BUPROPION HCL 100 MG TABLET PO SCH (09:34)
[2018-04-03] MEDS: DULOXETINE HCL 30 MG CAPSULE.DR PO SCH (09:35)
[2018-04-03] MEDS: METFORMIN HCL 500 MG TABLET PO SCH (09:35)
[2018-04-03] MEDS ORDERED: MAGNESIUM OXIDE 400 MG TABLET PO SCH (10:00)
[2018-04-03] MEDS ORDERED: PROPRANOLOL HCL 20 MG TABLET PO SCH (10:00)
--- NOTE | 2018-04-03 10:53 | PDOC DISCHARGE SUMMARY ---
General - Admit/Disc Date/PCP Admission Date/Primary Care Provider: 03/31/18 04:13 JOSE G CELIS MD Discharge Date: 04/03/18 - Additional Information Resuscitation Status: Full Code Discharge Diet: Cardiac, Diabetic Prescriptions: Pantoprazole Sodium [Protonix] 40 mg PO DAILY #30 tablet. Sucralfate [Carafate 1 gm Tablet] 1 gm PO ACHS #120 tablet Home Medications: Albuterol Sulfate [Proair HFA] 1 puff IH DAILYP PRN 03/31/18 Bupropion HCl [Bupropion Xl] 300 mg PO QAM 03/31/18 Duloxetine HCl [Cymbalta] 60 mg PO Q12 03/31/18 Gabapentin [Neurontin 300 mg Capsule] 1,200 mg PO Q8 03/31/18 Lisinopril [Prinivil 5 mg Tablet] 5 mg PO DAILY 03/31/18 Lorazepam [Ativan 1 mg Tablet] 0.5 mg PO Q8HP PRN 03/31/18 Metformin HCl [Metformin HCl ER] 500 mg PO DAILY 03/31/18 Propranolol HCl [Propranolol HCl ER] 120 mg PO DAILY 03/31/18 Quetiapine Fumarate [Seroquel] 200 mg PO QAM 03/31/18 Quetiapine Fumarate [Seroquel] 400 mg PO QHS 03/31/18 Ropinirole HCl [Requip] 3 mg PO Q8 03/31/18 Pantoprazole Sodium [Protonix] 40 mg PO DAILY #30 tablet. 04/03/18 Sucralfate [Carafate 1 gm Tablet] 1 gm PO ACHS #120 tablet 04/03/18 History of Present Illness Patient complains of: Altered mental status History of Present Illness: ALEJO ABBASI is a 58 year old female with history of atrial fibrillation, diabetes, tobacco, noncompliance, prescription drug abuse depression, anxiety, benzodiazepine dependence and well-documented recurrent presentations with altered mental status with spontaneous resolution with supportive care. Patient presents with vague symptoms, hypotension urine drug screen positive benzodiazepine though denies benzodiazepine use. Social history is unchanged from multiple previous presentations of intrastate transients, living in a car. Her workup reveals hyperglycemia, acute renal failure and hypo-kalemia. She denies fever chills nausea vomiting. Patient and partner at bedside give multiple contradictory statements. Hospital Course Hospital Course: (1) Atrial fibrillation Secondary to noncompliance. Has resolved with IV fluid challenge. Prior medications were resumed Patient is in normal sinus rhythm at discharge at a rate of 65/min (2) Hypomagnesemia Magnesium was replaced 04/03/18 05:49 Sodium 141.4 Potassium 4.5 Chloride 99 Carbon Dioxide 32 H BUN 11 Creatinine 0.76 Magnesium 1.6 Magnesium supplements prescribed at discharge Advise repeat BMP and magnesium in the week (3) Hypotension Secondary to dehydration Resolved (4) Hyperglycemia Hemoglobin A1c is 10.3, sliding scale and long acting insulin. (5) Hypokalemia Resolved (6) Medical non-compliance Continued education education, benzodiazepine weaning due to recurrent presentations with altered mental status. -Possible discharge in a.m. if stable and care management working with assisting patient with how to refill her medications. (7) pancytopenia The etiology is unclear Patient to have repeat CBC in a week 04/03/18 05:49 WBC 3.5 L Hgb 11.4 L Hct 33.1 L Plt Count 128 L (8) reflux esophagitis and dysphagia Patient gives a history of prior esophageal strictures and dilatation by Dr. Kessler She states that at times the food gets stuck She is also describing heartburn We will discharge her with Protonix And Carafate Appointment with Dr. Kessler in 2-4 weeks Patient may need repeat endoscopy Physical Exam Vital Signs: Temp Pulse Resp BP Pulse Ox 98.1 F 60 18 147/67 H 94 04/03/18 07:42 04/03/18 07:42 04/03/18 07:42 04/03/18 07:42 04/03/18 07:42 Intake & Output 04/02/18 04/03/18 04/04/18 00:59 00:59 00:59 Intake Total 829 1051 10 Output Total 0 2500 0 Balance 829 -1449 10 Weight 96 kg 92.5 kg 91.1 kg General appearance: PRESENT: no acute distress, well-developed, well-nourished Head exam: PRESENT: atraumatic, normocephalic Eye exam: PRESENT: conjunctiva pink, EOMI, PERRLA. ABSENT: scleral icterus Ear exam: PRESENT: normal external ear exam Mouth exam: PRESENT: moist, tongue midline Neck exam: ABSENT: carotid bruit, JVD, lymphadenopathy, thyromegaly Respiratory exam: PRESENT: clear to auscultation sami. ABSENT: rales, rhonchi, wheezes Cardiovascular exam: PRESENT: RRR. ABSENT: diastolic murmur, rubs, systolic murmur Pulses: PRESENT: normal dorsalis pedis pul Vascular exam: PRESENT: normal capillary refill GI/Abdominal exam: PRESENT: normal bowel sounds, soft. ABSENT: distended, guarding, mass, organolmegaly, rebound, tenderness Rectal exam: PRESENT: deferred Extremities exam: PRESENT: full ROM. ABSENT: calf tenderness, clubbing, pedal edema Neurological exam: PRESENT: alert, awake, oriented to person, oriented to place , oriented to time, oriented to situation, CN II-XII grossly intact. ABSENT: motor sensory deficit Psychiatric exam: PRESENT: appropriate affect, normal mood. ABSENT: homicidal ideation, suicidal ideation Skin exam: PRESENT: dry, intact, warm. ABSENT: cyanosis, rash Results Laboratory Results: 04/03/18 05:49 04/03/18 05:49 04/02/18 04/03/18 04/03/18 10:54 05:49 05:49 WBC 3.5 L RBC 4.33 Hgb 11.4 L Hct 33.1 L MCV 77 L MCH 26.3 L MCHC 34.4 RDW 14.9 H Plt Count 128 L Seg Neutrophils % 35.1 L Lymphocytes % 55.4 H Monocytes % 5.6 Eosinophils % 3.1 Basophils % 0.8 Absolute Neutrophils 1.2 L Absolute Lymphocytes 1.9 Absolute Monocytes 0.2 Absolute Eosinophils 0.1 Absolute Basophils 0.0 Sodium 136.3 L 141.4 Potassium 4.9 4.5 Chloride 102 99 Carbon Dioxide 26 32 H Anion Gap 8 10 BUN 9 11 Creatinine 0.57 0.76 Est GFR ( Amer) > 60 > 60 Est GFR (Non-Af Amer) > 60 > 60 Glucose 259 H 183 H Calcium 9.5 10.0 Magnesium 1.6 Impressions: Chest X-Ray 03/31/18 00:04 IMPRESSION: No acute cardiopulmonary findings. Head CT 03/31/18 02:19 IMPRESSION: No acute findings. Qualifiers - * PATIENT BEING DISCHARGED WITH ANY OF THE FOLLOWING DIAGNOSIS: No
[2018-04-03 12:10] VITALS: BP 159/99
== END 2018-04-03 13:03 | disposition home or self-care (01) | DRG 641 ==
LOC: ER 22:41 → OBSVTOIN 03-31 04:13 → EH 03-31 04:13 → 3W 03-31 06:11
PROVIDERS: ADMIT Internal Medicine; ATTEND Internal Medicine
DX: E87.6 Hypokalemia (principal); D61.818 Other pancytopenia; F13.20 Sedative, hypnotic or anxiolytic dependence, uncomplicated; N17.9 Acute kidney failure, unspecified; I95.9 Hypotension, unspecified; E83.42 Hypomagnesemia; I48.0 Paroxysmal atrial fibrillation; I10 Essential (primary) hypertension; E11.65 Type 2 diabetes mellitus with hyperglycemia; M19.90 Unspecified osteoarthritis, unspecified site; J44.9 Chronic obstructive pulmonary disease, unspecified; E78.5 Hyperlipidemia, unspecified; K21.9 Gastro-esophageal reflux disease without esophagitis; F31.9 Bipolar disorder, unspecified; F32.9 Major depressive disorder, single episode, unspecified; F41.9 Anxiety disorder, unspecified; R13.10 Dysphagia, unspecified; Z59.0 Homelessness; Z98.51 Tubal ligation status; Z91.19 Patient's noncompliance with other medical treatment and regimen; Z83.3 Family history of diabetes mellitus; Z80.8 Family history of malignant neoplasm of other organs or systems; Z79.4 Long term (current) use of insulin; Z79.84 Long term (current) use of oral hypoglycemic drugs
CPT/HCPCS: 36415; 70450; 71045; 80048; 80053; 80307; 81001; 82550; 82553; 82803; 82962; 83036; 83605; 83735; 84100; 84439; 84443; 84481; 84484; 85025; 87040; 93005; 93010; 96361; 96365; 96366; 96368; 99285; J1644; J1815; J2405; J3475; J3480; J3490; J7030

== ENCOUNTER 2018-04-20 12:44 | Emergency (ER) | payer MEDICAID ==
[2018-04-20] MEDS ORDERED: FENTANYL CITRATE INJ/PF 100 MCG/2 ML AMPUL IM ONE (13:08)
[2018-04-20] MEDS ORDERED: METOCLOPRAMIDE HCL INJ/PF 10 MG/2 ML SDV IM ONE (13:08)
--- NOTE | 2018-04-20 13:11 | ER Document Report ---
ED Medical Screen (RME) - General Chief Complaint: Abdominal Pain Stated Complaint: ABDOMINAL PAIN Time Seen by Provider: 04/20/18 13:04 Notes: RAPID MEDICAL EVALUATION DISCLOSURE I have seen this patient as part of a Rapid Medical Evaluation and, if applicable, placed any initially appropriate orders. The patient will be seen and fully evaluated, including a full history and physical exam, by a provider ( in Main ED or Fast Track) when a room becomes available. 58-year-old female here with complaints of continued intermittent epigastric abdominal pain nausea ongoing for the past 3 weeks. She was seen here several weeks ago for the same thing. She has been taking Motrin for the pain but states she could not afford to get the Phenergan filled. She has had some dark urine as well. EXAM No appreciable abdominal TTP No peritoneal signs TRAVEL OUTSIDE OF THE [place] IN LAST 30 DAYS: No - Related Data Allergies/Adverse Reactions: hydrochlorothiazide [From Maxzide] Allergy (Verified 04/20/18 12:53) triamterene [From Maxzide] Allergy (Verified 04/20/18 12:53) Past Medical History - Social History Frequency of alcohol use: None Drug Abuse: None - Past Medical History Cardiac Medical History: Reports: Hx Hypercholesterolemia - On no medication for same, Hx Hypertension Denies: Hx Congestive Heart Failure, Hx DVT, Hx Heart Attack, Hx Pulmonary Embolism, Hx Heart Murmur Pulmonary Medical History: Reports: Hx Bronchitis, Hx COPD, Hx Pneumonia, Hx Sleep Apnea Denies: Hx Respiratory Failure, Hx Tuberculosis Neurological Medical History: Denies: Hx Seizures Endocrine Medical History: Reports: Hx Diabetes Mellitus Type 1, Hx Diabetes Mellitus Type 2. Denies: Hx Hyperthyroidism, Hx Hypothyroidism Renal/ Medical History: Reports: Hx Renal Insufficiency - Her creatinines have remained under 1.0. Denies: Hx Peritoneal Dialysis GI Medical History: Reports: Hx Gastroesophageal Reflux Disease. Denies: Hx Cirrhosis, Hx Hepatitis, Hx Pancreatitis Musculoskeltal Medical History: Reports Hx Arthritis Skin Medical History: Denies Hx Eczema, Denies Hx Psoriasis Psychiatric Medical History: Reports: Hx Anxiety, Hx Bipolar Disorder, Hx Depression Infectious Medical History: Denies: Hx Hepatitis Past Surgical History: Reports: Hx Section - x2, Hx Tubal Ligation, Other - Laser eye surgery 2. - Immunizations Immunizations up to date: Yes Hx Diphtheria, Pertussis, Tetanus Vaccination: Yes History of Influenza Vaccine for 08/2017 - 01/2018 Season: Unknown Physical Exam - Vital signs Vitals: Temp Pulse Resp BP Pulse Ox 97.8 F 79 16 150/90 H 99 04/20/18 12:48 04/20/18 12:48 04/20/18 12:48 04/20/18 12:48 04/20/18 12:48 Course - Vital Signs Vital signs: Temp Pulse Resp BP Pulse Ox 97.8 F 79 16 150/90 H 99 04/20/18 12:48 04/20/18 12:48 04/20/18 12:48 04/20/18 12:48 04/20/18 12:48 Doctor's Discharge - Discharge Referrals: JOSE G CELIS MD [Primary Care Provider] - Follow up as needed
[2018-04-20 13:58] LABS: ABSOLUTE EOSINOPHILS # (AUTO) 0.1 10^3/uL (0.0-0.6); ABSOLUTE LYMPHOCYTES (AUTO) 1.5 10^3/uL (0.5-4.7); ABSOLUTE MONOCYTES (AUTO) 0.3 10^3/uL (0.1-1.4); ABSOLUTE NEUT (AUTO) 2.9 10^3/uL (1.7-8.2); BASOPHILS % (AUTO) 0.7 % (0-2); EOSINOPHILS % (AUTO) 2.6 % (0-6); HEMATOCRIT 33.5 % (36.0-47.0); HEMOGLOBIN 11.6 g/dL (12.0-15.5); LYMPHOCYTES % (AUTO) 31.2 % (13-45); MEAN CORPUSCULAR HEMOGLOBIN 26.3 pg (27.0-33.4); MEAN CORPUSCULAR HGB CONC 34.6 g/dL (32.0-36.0); MEAN CORPUSCULAR VOLUME 76 fl (80-97); MONOCYTES % (AUTO) 5.6 % (3-13); PLATELET COUNT 176 10^3/uL (150-450); RED BLOOD COUNT 4.41 10^6/uL (3.72-5.28); RED CELL DISTRIBUTION WIDTH 15.6 % (11.5-14.0); SEGMENTED NEUTROPHILS % (AUTO) 59.9 % (42-78); TOTAL CELLS COUNTED % (AUTO) 100 %; WHITE BLOOD COUNT 4.8 10^3/uL (4.0-10.5)
[2018-04-20 14:08] LABS: APPEARANCE,URINE SLIGHTLY-CLOUDY; BILIRUBIN,URINE NEGATIVE (NEGATIVE); COLOR,URINE YELLOW; GLUCOSE, URINE >=500 mg/dL (NEGATIVE); KETONES,URINE NEGATIVE (NEGATIVE); LEUKOCYTE ESTERASE,URINE NEGATIVE (NEGATIVE); NITRITE,URINE NEGATIVE (NEGATIVE); PROTEIN,URINE 30 mg/dL (NEGATIVE); URINE SPECIFIC GRAVITY 1.027; UROBILINOGEN,URINE NEGATIVE mg/dL (<2.0)
[2018-04-20 14:10] LABS: ALANINE AMINOTRANSFERASE 26 U/L (9-52); ALBUMIN 4.3 g/dL (3.5-5.0); ALKALINE PHOSPHATASE 103 U/L (38-126); ANION GAP 17 (5-19); ASPARTATE AMINO TRANSFERASE 24 U/L (14-36); BILIRUBIN,DIRECT 0.3 mg/dL (0.0-0.4); BLOOD UREA NITROGEN 15 mg/dL (7-20); CALCIUM 9.7 mg/dL (8.4-10.2); CARBON DIOXIDE 24 mmol/L (22-30); CHLORIDE 100 mmol/L (98-107); LIPASE 126.5 U/L (23-300); POTASSIUM 3.8 mmol/L (3.6-5.0); SODIUM 141.2 mmol/L (137-145); TOTAL PROTEIN 6.7 g/dL (6.3-8.2)
--- NOTE | 2018-04-20 14:27 | RADIOLOGY REPORT (SQ) ---
EXAM DESCRIPTION: ACUTE ABDOMEN SERIES COMPLETED DATE/TIME: 04/20/2018 2:05 pm REASON FOR STUDY: abd pain nausea; eval COMPARISON: None. NUMBER OF VIEWS: Three views. TECHNIQUE: Frontal chest, supine abdomen and upright/decubitus abdomen radiographic images acquired. LIMITATIONS: None. FINDINGS: CHEST: Lungs clear of infiltrates. FREE AIR: None. No abnormal gas collections. BOWEL GAS PATTERN: Nonobstructive pattern. No dilated loops or air fluid levels. CALCIFICATIONS: No suspicious calcifications. HARDWARE: None in the abdomen. SOFT TISSUES: No gross mass or suggestion of organomegaly. BONES: No acute fracture. No worrisome bone lesions. OTHER: No other significant finding. IMPRESSION: NO RADIOGRAPHIC EVIDENCE FOR ACUTE ABDOMINAL DISEASE. TECHNICAL DOCUMENTATION: JOB ID: [id number] [employer]- All Rights Reserved Reading location - IP/workstation name: [email or web address]
[2018-04-20 14:32] LABS: GLUCOSE 426 mg/dL (75-110)
--- NOTE | 2018-04-20 14:34 | ER Document Report ---
ED GI/ - General Chief Complaint: Abdominal Pain Stated Complaint: ABDOMINAL PAIN Time Seen by Provider: 04/20/18 13:04 Notes: ALEJO ABBASI is a 58 year old female with history of atrial fibrillation, diabetes, tobacco, noncompliance, prescription drug abuse depression, anxiety, benzodiazepine dependence and well-documented recurrent presentations, presents with her usual epigastric pain and chronic nausea. She has an appointment with her GI doctor in 3 days and has prescription sfor Protonix, Carafate and Phenergan. She is having difficulty affording her to dollar co-pay for her Phenergan. Patient is also not taking her diabetes medications as instructed. Patient denies fevers, hematemesis, diarrhea, constipation, urinary symptoms, chest pain or shortness of breath. TRAVEL OUTSIDE OF THE [place] IN LAST 30 DAYS: No - Related Data Allergies/Adverse Reactions: hydrochlorothiazide [From Maxzide] Allergy (Verified 04/20/18 12:53) triamterene [From Maxzide] Allergy (Verified 04/20/18 12:53) Past Medical History - General Information source: Patient - Social History Smoking Status: Current Some Day Smoker Frequency of alcohol use: None Drug Abuse: None Family History: Reviewed & Not Pertinent, DM, Malignancy - Mother had liver cancer, Other - Father of sudden arrhythmia, had cirrhosis and a liver transplant. Patient has suicidal ideation: No Patient has homicidal ideation: No - Past Medical History Cardiac Medical History: Reports: Hx Hypercholesterolemia - On no medication for same, Hx Hypertension Denies: Hx Congestive Heart Failure, Hx DVT, Hx Heart Attack, Hx Pulmonary Embolism, Hx Heart Murmur Pulmonary Medical History: Reports: Hx Bronchitis, Hx COPD, Hx Pneumonia, Hx Sleep Apnea Denies: Hx Respiratory Failure, Hx Tuberculosis Neurological Medical History: Denies: Hx Seizures Endocrine Medical History: Reports: Hx Diabetes Mellitus Type 1, Hx Diabetes Mellitus Type 2. Denies: Hx Hyperthyroidism, Hx Hypothyroidism Renal/ Medical History: Reports: Hx Renal Insufficiency - Her creatinines have remained under 1.0. Denies: Hx Peritoneal Dialysis GI Medical History: Reports: Hx Gastroesophageal Reflux Disease. Denies: Hx Cirrhosis, Hx Hepatitis, Hx Pancreatitis Musculoskeltal Medical History: Reports Hx Arthritis Skin Medical History: Denies Hx Eczema, Denies Hx Psoriasis Psychiatric Medical History: Reports: Hx Anxiety, Hx Bipolar Disorder, Hx Depression Infectious Medical History: Denies: Hx Hepatitis Past Surgical History: Reports: Hx Section - x2, Hx Tubal Ligation, Other - Laser eye surgery 2. - Immunizations Immunizations up to date: Yes Hx Diphtheria, Pertussis, Tetanus Vaccination: Yes Hx Pneumococcal Vaccination: 02/26/12 Review of Systems - Review of Systems Notes: REVIEW OF SYSTEMS: CONSTITUTIONAL: -fevers, -chills EENT: -eye pain, -difficulty swallowing, -nasal congestion CARDIOVASCULAR: -chest pain, -syncope. RESPIRATORY: -cough, -SOB GASTROINTESTINAL: +epigastric abdominal pain, +nausea, -vomiting, -diarrhea GENITOURINARY: -dysuria, -hematuria MUSCULOSKELETAL: -back pain, -neck pain SKIN: -rash or skin lesions. HEMATOLOGIC: -easy bruising or bleeding. LYMPHATIC: -swollen, enlarged glands. NEUROLOGICAL: -altered mental status or loss of consciousness, -headache, - neurologic symptoms PSYCHIATRIC: -anxiety, -depression. ALL OTHER SYSTEMS REVIEWED AND NEGATIVE. Physical Exam - Vital signs Vitals: Temp Pulse Resp BP Pulse Ox 97.8 F 79 16 150/90 H 99 04/20/18 12:48 04/20/18 12:48 04/20/18 12:48 04/20/18 12:48 04/20/18 12:48 - Notes Notes: PHYSICAL EXAMINATION: GENERAL: Well-appearing, well-nourished and in no acute distress. HEAD: Atraumatic, normocephalic. EYES: Pupils equal round and reactive to light, extraocular movements intact, sclera anicteric, conjunctiva are normal. ENT: nares patent, oropharynx clear without exudates. Moist mucous membranes. NECK: Normal range of motion, supple without lymphadenopathy LUNGS: Breath sounds clear to auscultation bilaterally and equal. No wheezes rales or rhonchi. HEART: Regular rate and rhythm without murmurs ABDOMEN: Soft, mild epigastric tenderness, normoactive bowel sounds. No guarding, no rebound. No masses appreciated. EXTREMITIES: Normal range of motion, no pitting or edema. No cyanosis. NEUROLOGICAL: Cranial nerves grossly intact. Normal speech, normal gait. Normal sensory and motor exams. PSYCH: Normal mood, normal affect. SKIN: Warm, Dry, normal turgor, no rashes or lesions noted. Course - Re-evaluation Re-evalutation: Patient's epigastric pain and nausea are chronic for her. She is already on Protonix and Carafate with Phenergan. Blood work is unremarkable, other than hyperglycemia without an anion gap. She has an appointment with Dr. Kessler in 3 days. Provided her with Reglan to help her nausea and gastroparesis and instructed her to stop using Motrin. - Vital Signs Vital signs: Temp Pulse Resp BP Pulse Ox 98.2 F 75 16 166/77 H 99 04/20/18 16:13 04/20/18 16:13 04/20/18 16:13 04/20/18 16:13 04/20/18 16:13 - Laboratory Result Diagrams: 04/20/18 13:26 04/20/18 13:26 Laboratory results interpreted by me: 04/20/18 04/20/18 04/20/18 13:26 13:26 13:33 Hgb 11.6 L Hct 33.5 L MCV 76 L MCH 26.3 L RDW 15.6 H Glucose 426 H* Urine Protein 30 H Urine Glucose (UA) >=500 H Urine Blood MODERATE H Discharge - Discharge Clinical Impression: Epigastric abdominal pain, Hyperglycemia, Medical non-compliance Condition: Stable Disposition: HOME, SELF-CARE Additional Instructions: ABDOMINAL PAIN: There are many causes of abdominal pain. Pain can mean a serious problem requiring surgery (such as appendicitis). It can also be an innocent problem that goes away on its own (such as a viral infection). Often, time must pass to determine the cause of pain. The physician does not feel that hospitalization is necessary, at present. Things may change within the next 24 hours. Call the doctor or come back for re- examination if any problems occur, such as: (1) Pain that becomes more severe, steady, or becomes concentrated in one specific area. Also, pain that is more severe with movement or coughing. (2) Vomiting that persists or becomes more frequent. (3) Blood in the vomitus, urine, or bowel movements. Blood in the stool may have a tarry or black appearance. (4) Shaking chills or fever greater than 100 degrees F. (5) The abdomen becomes more distended or swollen. (6) Bowel movements cease. (7) Failure to improve as expected. NORMAL EXAM AND WORKUP: At this time, your examination and workup show no significant abnormality. No significant abnormal physical findings are noted. All laboratory, EKG, and imaging (x-ray, CT scans, ultrasound) studies that were ordered show no significant abnormality. Although your examination and all studies that were ordered showed no significant abnormal finding, there are no examinations and no studies that are 100% accurate. There is always the possibility that some abnormality could exist and not be detected with physical examination or within the limits and capabilities of laboratory and other studies. You should return or follow up as you were instructed on your visit today for further evaluation if your symptoms do not resolve. ANTINAUSEA MEDICATION: You have been given a medication to suppress nausea and vomiting. This type of medication can be given as a shot, pill, or suppository. It will usually last for many hours. Pills and shots usually last six to eight hours, suppositories last about 12 hours. For the typical illness, only one or two doses of the medication may be necessary. Mild lightheadedness may occur. This type of medicine can cause drowsiness. Do not drive or operate dangerous machinery while under its influence. Do not mix with alcohol. See your doctor at once if you have muscle spasms or tightness, or uncontrollable motions (particularly of the neck, mouth, or jaw). Persistent vomiting or severe lightheadedness should also be evaluated by the physician. FOLLOW-UP CARE: If you have been referred to a physician for follow-up care, call the physician s office for an appointment as you were instructed or within the next two days. If you experience worsening or a significant change in your symptoms, notify the physician immediately or return to the Emergency Department at any time for re-evaluation. Hyperglycemia (High Blood Sugar) You have an abnormally high blood sugar. Not all high blood sugar requires long-term treatment. High blood sugar can be due to medications, , or the stress of illness. (These cases are "borderline diabetes.") If the doctor feels your high blood sugar might resolve with time, you may not require treatment now. You will be scheduled for further evaluation. It's very important that you follow through, to see if the blood sugar returns to normal levels. Uncontrolled high blood sugar leads to early heart disease, strokes, nerve damage, eye damage, and kidney damage. Call the physician if there is faintness, excess sleepiness, or very rapid breathing. Prescriptions: Metoclopramide HCl [Reglan 10 mg Tablet] 1 - 2 tab PO ASDIR PRN #25 tablet PRN Reason: Forms: Elevated Blood Pressure Referrals: JOSE G CELIS MD [Primary Care Provider] - Follow up as needed MORGAN KESSLER MD [ACTIVE STAFF] - Follow up as needed
[2018-04-20] MEDS: NORMAL SALINE 1000 ML 1,000 ML IV PRN ×2 (14:45→14:46)
[2018-04-20 16:13] VITALS: BP 166/77
== END 2018-04-20 16:14 | disposition home or self-care (01) ==
LOC: ER 12:44
DX: R10.13 Epigastric pain (principal); E11.65 Type 2 diabetes mellitus with hyperglycemia; R11.0 Nausea; Z91.14 Patient's other noncompliance with medication regimen; I48.91 Unspecified atrial fibrillation; J44.9 Chronic obstructive pulmonary disease, unspecified; Z79.899 Other long term (current) drug therapy; F17.200 Nicotine dependence, unspecified, uncomplicated
CPT/HCPCS: 99284; 96372; 96360; 36415; 83690; 85025; 80053; 81001; 74022; J3010; J2765; J7030

== ENCOUNTER → 2018-05-01 | Outpatient (CLI) | payer MEDICAID ==
--- NOTE | 2018-05-01 08:26 | WOMENS IMAGING REPORT ---
EXAM DESCRIPTION: U/S ABDOMEN LIMITED COMPLETED DATE/TIME: 05/01/2018 8:08 am REASON FOR STUDY: EPIGASTRIC PAIN R10.13 EPIGASTRIC PAIN COMPARISON: None. TECHNIQUE: Dynamic and static grayscale images acquired of the abdomen and recorded on PACS. Additio nal selected color Doppler and spectral images recorded. LIMITATIONS: None. FINDINGS: PANCREAS: No abnormality. . LIVER: The liver is borderline enlarged measuring 17.7 cm in length demonstrating increased echogenic ity consistent with fatty infiltration. LIVER VASCULATURE: Normal directional flow of the main portal vein and hepatic veins. GALLBLADDER: No stones. Normal wall thickness of approximately 2 mm. . No pericholecystic fluid. ULTRASOUND-DETECTED MAYO'S SIGN: Negative. INTRAHEPATIC DUCTS AND COMMON DUCT: CBD is normal measuring 4.8 mm. Intrahepatic ducts normal calibe r. No filling defects. INFERIOR VENA CAVA: Normal flow. AORTA: The proximal abdominal aorta measures 1.8 cm in AP diameter x 1.9 cm in transverse diameter. The mid abdominal aorta measures 1.4 cm in AP diameterx 1.9 cm in transverse diameter. The distal ab dominal aorta measures 1.4 cm in AP diameter x 1.9 cm in transverse diameter. RIGHT KIDNEY: The right kidney measures 12.9 x 5.8 x 6.6 cm demonstrating normal echogenicity. PERITONEAL AND RIGHT PLEURAL SPACE: No ascites or effusions. IMPRESSION: Fatty infiltration the liver. Otherwise, normal upper abdominal ultrasound. TECHNICAL DOCUMENTATION: JOB ID: [id number] 2010 [employer]- All Rights Reserved Reading location - IP/workstation name: [email or web address]
== END ==
LOC: WI 07:21
PROVIDERS: ATTEND Internal Medicine Gastroenterology
DX: R10.13 Epigastric pain (principal)
CPT/HCPCS: 76705

== ENCOUNTER 2018-07-02 18:07 | Observation (INO) | payer MEDICAID ==
[2018-07-02] MEDS ORDERED: RINGERS SOLUTION,LACTATED 1,000 ML IV ONE ×2 (19:02→22:18)
--- NOTE | 2018-07-02 19:05 | ER Document Report ---
ED Medical Screen (RME) - General Chief Complaint: Dizziness Stated Complaint: BLOOD PRESSURE ISSUES Time Seen by Provider: 07/02/18 18:53 Notes: 58-year-old female to the emergency department for evaluation of weakness and dizziness. Almost passed out when she went from sitting to standing. Has had this happen once before. No do not medications. Feels weak and dizzy. Also complaining of pain in her lower abdomen to her bilateral lower extremities. Has any diarrhea. Not coughing up or passing any blood in stool. I have greeted and performed a rapid initial assessment of this patient. A comprehensive ED assessment and evaluation of the patient, analysis of test results and completion of the medical decision making process will be conducted by additional ED providers. TRAVEL OUTSIDE OF THE [place] IN LAST 30 DAYS: No - Related Data Allergies/Adverse Reactions: hydrochlorothiazide [From Maxzide] Allergy (Verified 04/20/18 12:53) triamterene [From Maxzide] Allergy (Verified 04/20/18 12:53) Past Medical History - Past Medical History Cardiac Medical History: Reports: Hx Hypercholesterolemia - On no medication for same, Hx Hypertension Denies: Hx Congestive Heart Failure, Hx DVT, Hx Heart Attack, Hx Pulmonary Embolism, Hx Heart Murmur Pulmonary Medical History: Reports: Hx Bronchitis, Hx COPD, Hx Pneumonia, Hx Sleep Apnea Denies: Hx Respiratory Failure, Hx Tuberculosis Neurological Medical History: Denies: Hx Seizures Endocrine Medical History: Reports: Hx Diabetes Mellitus Type 1, Hx Diabetes Mellitus Type 2. Denies: Hx Hyperthyroidism, Hx Hypothyroidism Renal/ Medical History: Reports: Hx Renal Insufficiency - Her creatinines have remained under 1.0. Denies: Hx Peritoneal Dialysis GI Medical History: Reports: Hx Gastroesophageal Reflux Disease. Denies: Hx Cirrhosis, Hx Hepatitis, Hx Pancreatitis Musculoskeltal Medical History: Reports Hx Arthritis Skin Medical History: Denies Hx Eczema, Denies Hx Psoriasis Psychiatric Medical History: Reports: Hx Anxiety, Hx Bipolar Disorder, Hx Depression Infectious Medical History: Denies: Hx Hepatitis Past Surgical History: Reports: Hx Section - x2, Hx Tubal Ligation, Other - Laser eye surgery 2. - Immunizations Immunizations up to date: Yes Hx Diphtheria, Pertussis, Tetanus Vaccination: Yes History of Influenza Vaccine for 08/2017 - 01/2018 Season: Unknown Physical Exam - Vital signs Vitals: Temp Pulse Resp BP Pulse Ox 98.9 F 118 H 18 77/58 L 98 07/02/18 18:28 07/02/18 18:28 07/02/18 18:28 07/02/18 18:28 07/02/18 18:28 Course - Re-evaluation Re-evalutation: 07/02/18 19:05 Repeat vital signs performed in triage after my evaluation. Blood pressure was 65/40 with a heart rate of 125. Trying to find patient immediate bed. - Vital Signs Vital signs: Temp Pulse Resp BP Pulse Ox 98.9 F 124 H 18 62/42 L 98 07/02/18 18:28 07/02/18 19:02 07/02/18 18:28 07/02/18 19:02 07/02/18 18:28
--- NOTE | 2018-07-02 19:15 | ER Document Report ---
ED General - General Chief Complaint: Dizziness Stated Complaint: BLOOD PRESSURE ISSUES Time Seen by Provider: 07/02/18 18:53 Cannot obtain history due to: Unstable vital signs Notes: Patient is a 58-year-old female with a past medical history of hypertension, recurrent periods of hypotension recurrent acute kidney injury presents with lightheadedness, near syncope, nausea, and diffuse body pain. History is limited as patient has extraordinarily hypotensive blood pressure at time of presentation is somewhat lethargic. Review of medical record documentation does reveal that the patient has history of similar presentation in March 2018. TRAVEL OUTSIDE OF THE [place] IN LAST 30 DAYS: No - Related Data Allergies/Adverse Reactions: hydrochlorothiazide [From Maxzide] Allergy (Verified 04/20/18 12:53) triamterene [From Maxzide] Allergy (Verified 04/20/18 12:53) Past Medical History - General Information source: Patient, Relative - Social History Smoking Status: Current Every Day Smoker Frequency of alcohol use: None Drug Abuse: None Lives with: Spouse/Significant other Family History: Reviewed & Not Pertinent, DM, Malignancy - Mother had liver cancer, Other - Father of sudden arrhythmia, had cirrhosis and a liver transplant. Patient has suicidal ideation: No Patient has homicidal ideation: No - Past Medical History Cardiac Medical History: Reports: Hx Hypercholesterolemia - On no medication for same, Hx Hypertension Denies: Hx Congestive Heart Failure, Hx DVT, Hx Heart Attack, Hx Pulmonary Embolism, Hx Heart Murmur Pulmonary Medical History: Reports: Hx Bronchitis, Hx COPD, Hx Pneumonia, Hx Sleep Apnea Denies: Hx Respiratory Failure, Hx Tuberculosis Neurological Medical History: Denies: Hx Seizures Endocrine Medical History: Reports: Hx Diabetes Mellitus Type 1, Hx Diabetes Mellitus Type 2. Denies: Hx Hyperthyroidism, Hx Hypothyroidism Renal/ Medical History: Reports: Hx Renal Insufficiency - Her creatinines have remained under 1.0. Denies: Hx Peritoneal Dialysis GI Medical History: Reports: Hx Gastroesophageal Reflux Disease. Denies: Hx Cirrhosis, Hx Hepatitis, Hx Pancreatitis Musculoskeletal Medical History: Reports Hx Arthritis Skin Medical History: Denies Hx Eczema, Denies Hx Psoriasis Psychiatric Medical History: Reports: Hx Anxiety, Hx Bipolar Disorder, Hx Depression Infectious Medical History: Denies: Hx Hepatitis Past Surgical History: Reports: Hx Section - x2, Hx Tubal Ligation, Other - Laser eye surgery 2. - Immunizations Immunizations up to date: Yes Hx Diphtheria, Pertussis, Tetanus Vaccination: Yes Hx Pneumococcal Vaccination: 02/26/12 Review of Systems - Review of Systems Notes: Constitutional: Negative for fever. Positive for fatigue HENT: Negative for sore throat. Eyes: Negative for visual changes. Cardiovascular: Negative for chest pain. Respiratory: Negative for shortness of breath. Gastrointestinal: Negative for abdominal pain, vomiting or diarrhea. Genitourinary: Negative for dysuria. Musculoskeletal: Negative for back pain. Positive for diffuse body pain Skin: Negative for rash. Neurological: Negative for headaches, weakness or numbness. 10 point ROS negative except as marked above and in HPI. Physical Exam - Vital signs Vitals: Temp Pulse Resp BP Pulse Ox 98.9 F 118 H 18 77/58 L 98 07/02/18 18:28 07/02/18 18:28 07/02/18 18:28 07/02/18 18:28 07/02/18 18:28 Interpretation: Hypotensive, Tachycardic Notes: PHYSICAL EXAMINATION: GENERAL: Cool to touch, pale, somewhat diaphoretic. Ill in appearance. HEAD: Atraumatic, normocephalic. EYES: Pupils equal round and reactive to light, extraocular movements intact, sclera anicteric, conjunctiva are normal. ENT: nares patent, oropharynx clear without exudates. Dry mucous membranes. NECK: Normal range of motion, supple without lymphadenopathy LUNGS: Breath sounds clear to auscultation bilaterally and equal. No wheezes rales or rhonchi. HEART: Regular tachycardia without murmurs ABDOMEN: Soft, nontender, normoactive bowel sounds. No guarding, no rebound. No masses appreciated. EXTREMITIES: Normal range of motion, no pitting or edema. No cyanosis. NEUROLOGICAL: No focal neurological deficits. Moves all extremities spontaneously and on command. PSYCH: Somewhat lethargic but otherwise oriented SKIN: Warm, pale, poor skin turgor, diaphoretic Course - Re-evaluation Re-evalutation: 07/02/18 19:14 Patient presents with hypotension to 60 on 40, although is only mildly lethargic and is oriented. She is noted to be pale, cool to the touch. Somewhat ill in appearance. She denies any focal symptoms other than diffuse body pain. Review of her hospitalization from March 2018 reveals that the patient had a very similar presentation at that time, was found to be in renal failure with hypo-magnesium, hypokalemia, pancytopenia, and much of this has been attributed to recurrent prescription drug abuse. The patient does not present as being a benzodiazepine overdose at the time of evaluation however. Will obtain broad laboratories, begin aggressive IV rehydration, establish to points of IV access, cardiac markers and reassess at regular intervals given her marked hypotension. The patient is considered to be in critical condition will require frequent reassessments. 07/02/18 20:02 Patient has continued to have improvement of her blood pressure currently 104 on 67. Heart rate has also improved to 74 currently. Her color is likewise improving as is her mental status. Awaiting laboratories. Will continue to reassess at regular intervals. 07/02/18 22:11 Patient has continued to do very well. I have reassessed her on multiple occasions and she is alert, oriented, tolerating oral intake without difficulty. After 2 L of fluid resuscitation her blood pressures have consistently remained within normal limits now for almost 2 hours. Her last blood pressure is 126 on 63. Unfortunately, the patient gets up to attempt to ambulate she rapidly becomes orthostatic again, had a near syncopal episode and could not walk more than 4 steps. Given her ongoing orthostasis and initial marked hypotension will discuss with the hospitalist for admission. 07/03/18 04:18 - Vital Signs Vital signs: Temp Pulse Resp BP Pulse Ox 97.4 F 65 16 140/70 H 100 07/03/18 02:23 07/03/18 02:23 07/03/18 02:23 07/03/18 02:23 07/03/18 02:23 - Laboratory Result Diagrams: 07/02/18 19:19 07/02/18 19:19 Laboratory results interpreted by me: 07/02/18 07/02/18 07/02/18 19:19 19:19 21:48 WBC 11.7 H Hgb 11.9 L Hct 35.5 L MCV 79 L MCH 26.4 L RDW 15.8 H BUN 24 H Creatinine 1.36 H Est GFR ( Amer) 49 L Est GFR (Non-Af Amer) 40 L Glucose 157 H AST 40 H Urine Protein 100 H Urine Glucose (UA) >=500 H Urine Blood SMALL H Ur Leukocyte Esterase MODERATE H - Diagnostic Test Radiology reviewed: Image reviewed, Reports reviewed Radiology results interpreted by me: 07/02/18 22:13 Chest x-ray: No acute infiltrate or pneumothorax - EKG Interpretation by Me Additional EKG results interpreted by me: 07/03/18 04:18 Atrial fibrillation with rapid ventricular response. Rate 116. No ST elevations or depressions. QTC prolonged at 501. Critical Care Note - Critical Care Note Total time excluding time spent on procedures (mins): 40 Comments: Critical care time spent obtaining history from patient or surrogate, discussions with consultants, development of treatment plan with patient or surrogate, evaluation of patient's response to treatment, examination of patient , ordering and performing treatments and interventions, ordering and review of laboratory studies, re-evaluation of patient's condition, ordering and review of radiographic studies and review of old charts Discharge - Discharge Clinical Impression: Prerenal azotemia, Orthostatic hypotension Hypotension Qualifiers: Hypotension type: unspecified hypotension type Qualified Code(s): I95.9 - Hypotension, unspecified Atrial fibrillation Qualifiers: Atrial fibrillation type: paroxysmal Qualified Code(s): I48.0 - Paroxysmal atrial fibrillation Condition: Fair Disposition: ADMITTED OBSERVATION Admitting Provider: Hospitalist Unit Admitted: Telemetry
--- NOTE | 2018-07-02 19:32 | EKG REPORT ---
SEVERITY:- ABNORMAL ECG - ATRIAL FIBRILLATION LEFT ANTERIOR FASCICULAR BLOCK LEFT VENTRICULAR HYPERTROPHY BORDERLINE PROLONGED QT INTERVAL : Confirmed by: Ean Minaya MD 02-Jul-2018 19:31:40
[2018-07-02 19:37] LABS: ABSOLUTE BASOPHILS # (AUTO) 0.1 10^3/uL (0.0-0.2); ABSOLUTE EOSINOPHILS # (AUTO) 0.3 10^3/uL (0.0-0.6); ABSOLUTE LYMPHOCYTES (AUTO) 2.9 10^3/uL (0.5-4.7); ABSOLUTE MONOCYTES (AUTO) 0.8 10^3/uL (0.1-1.4); ABSOLUTE NEUT (AUTO) 7.5 10^3/uL (1.7-8.2); BASOPHILS % (AUTO) 0.8 % (0-2); EOSINOPHILS % (AUTO) 2.5 % (0-6); HEMATOCRIT 35.5 % (36.0-47.0); HEMOGLOBIN 11.9 g/dL (12.0-15.5); MEAN CORPUSCULAR HEMOGLOBIN 26.4 pg (27.0-33.4); MEAN CORPUSCULAR HGB CONC 33.5 g/dL (32.0-36.0); MEAN CORPUSCULAR VOLUME 79 fl (80-97); MONOCYTES % (AUTO) 7.1 % (3-13); PLATELET COUNT 200 10^3/uL (150-450); RED BLOOD COUNT 4.49 10^6/uL (3.72-5.28); RED CELL DISTRIBUTION WIDTH 15.8 % (11.5-14.0); SEGMENTED NEUTROPHILS % (AUTO) 64.6 % (42-78); TOTAL CELLS COUNTED % (AUTO) 100 %; WHITE BLOOD COUNT 11.7 10^3/uL (4.0-10.5)
--- NOTE | 2018-07-02 19:50 | RADIOLOGY REPORT (SQ) ---
EXAM DESCRIPTION: CHEST SINGLE VIEW COMPLETED DATE/TIME: 07/02/2018 7:41 pm REASON FOR STUDY: near syncope COMPARISON: 03/31/2018 EXAM PARAMETERS: NUMBER OF VIEWS: One view. TECHNIQUE: Single frontal radiographic view of the chest acquired. RADIATION DOSE: NA LIMITATIONS: None. FINDINGS: LUNGS AND PLEURA: No opacities, masses or pneumothorax. No pleural effusion. MEDIASTINUM AND HILAR STRUCTURES: No masses. Contour normal. HEART AND VASCULAR STRUCTURES: Heart normal in size. Normal vasculature. BONES: No acute findings. HARDWARE: None in the chest. OTHER: No other significant finding. IMPRESSION: NO ACUTE RADIOGRAPHIC FINDING IN THE CHEST. TECHNICAL DOCUMENTATION: JOB ID: [id number] 2010 [employer]- All Rights Reserved Reading location - IP/workstation name: [email or web address]
[2018-07-02 20:00] LABS: ALANINE AMINOTRANSFERASE 30 U/L (9-52); ALBUMIN 3.8 g/dL (3.5-5.0); ALKALINE PHOSPHATASE 125 U/L (38-126); ANION GAP 12 (5-19); ASPARTATE AMINO TRANSFERASE 40 U/L (14-36); BILIRUBIN,DIRECT 0.3 mg/dL (0.0-0.4); BILIRUBIN,TOTAL 0.4 mg/dL (0.2-1.3); BLOOD UREA NITROGEN 24 mg/dL (7-20); CALCIUM 9.6 mg/dL (8.4-10.2); CARBON DIOXIDE 29 mmol/L (22-30); CHLORIDE 98 mmol/L (98-107); CREATINE KINASE 78 U/L (30-135); GLUCOSE 157 mg/dL (75-110); POTASSIUM 3.9 mmol/L (3.6-5.0); SODIUM 138.6 mmol/L (137-145)
[2018-07-02 20:11] LABS: CREATINE KINASE MB 1.79 ng/mL (<4.55); NT PRO BNP 236 pg/mL (5-900)
[2018-07-02 20:12] LABS: TROPONIN I < 0.012 ng/mL
[2018-07-02 22:13] LABS: APPEARANCE,URINE CLEAR; BILIRUBIN,URINE NEGATIVE (NEGATIVE); COLOR,URINE AMBER; GLUCOSE, URINE >=500 mg/dL (NEGATIVE); KETONES,URINE NEGATIVE (NEGATIVE); LEUKOCYTE ESTERASE,URINE MODERATE (NEGATIVE); NITRITE,URINE NEGATIVE (NEGATIVE); PROTEIN,URINE 100 mg/dL (NEGATIVE); URINE SPECIFIC GRAVITY 1.012; UROBILINOGEN,URINE NEGATIVE mg/dL (<2.0)
[2018-07-02] MEDS ORDERED: PROMETHAZINE HCL INJ 25 MG/1 ML VIAL IV PRN (23:54)
[2018-07-02] MEDS ORDERED: ACETAMINOPHEN 325 MG TABLET PO PRN (23:54)
--- NOTE | 2018-07-03 00:26 | PDOC H&P ---
History of Present Illness Admission Date/PCP: 07/02/18 22:27 Carson Ibanez MD Patient complains of: Generalized weakness History of Present Illness: ALEJO ABBASI is a 58 year old female who comes to the emergency department with generalized weakness. I could not obtain any reliable information from the patient and she is very lethargic and falls asleep in the middle of the conversation. She has history of prescription drug abuse and she was last discharged on March 25 with a possible benzodiazepines overdose. Patient tells me that she has been dizzy all day, when she arrived to the emergency department she was hypotensive with a blood pressure of 60/40, after 2-1/2 L of IV fluids her blood pressure came up, currently 118/51, unfortunately when the patient was standing up and walking for few steps he was still feeling dizziness and her blood pressure dropping.. Initially orthostatic vital signs positive. Past Medical History Cardiac Medical History: Reports: Hyperlipidema - On no medication for same, Hypertension Denies: Congestive Heart Failure, DVT, Myocardial Infarction, Pulmonary Embolism, Heart Murmur Pulmonary Medical History: Reports: Bronchitis, Chronic Obstructive Pulmonary Disease (COPD), Pneumonia, Sleep Apnea Denies: Respiratory Failure, Tuberculosis Neurological Medical History: Denies: Seizures Endocrine Medical History: Reports: Diabetes Mellitus Type 1, Diabetes Mellitus Type 2 Denies: Hyperthyroidism, Hypothyroidism GI Medical History: Reports: Gastroesophageal Reflux Disease Denies: Cirrhosis, Hepatitis Musculoskeltal Medical History: Reports: Arthritis Skin Medical History: Denies: Eczema, Psoriasis Psychiatric Medical History: Reports: Bipolar Disorder, Depression Hematology: Reports: Anemia Denies: Hemophilia, Sickle Cell Disease Past Surgical History Past Surgical History: Reports: Section - x2, Tubal Ligation, Other - Laser eye surgery 2. Denies: Amputation Social History Smoking Status: Current Every Day Smoker Frequency of Alcohol Use: None Hx Recreational Drug Use: No Drugs: None Hx Prescription Drug Abuse: No Family History Family History: Reviewed & Not Pertinent, DM, Malignancy - Mother had liver cancer, Other - Father of sudden arrhythmia, had cirrhosis and a liver transplant. Parental Family History Reviewed: No Children Family History Reviewed: NA Sibling(s) Family History Reviewed.: NA Medication/Allergy Home Medications: Albuterol Sulfate [Proair HFA] 1 puff IH DAILYP PRN 03/31/18 Bupropion HCl [Bupropion Xl] 300 mg PO QAM 03/31/18 Duloxetine HCl [Cymbalta] 60 mg PO Q12 03/31/18 Lisinopril [Prinivil 5 mg Tablet] 5 mg PO DAILY 03/31/18 Lorazepam [Ativan 1 mg Tablet] 0.5 mg PO Q8HP PRN 03/31/18 Metformin HCl [Metformin HCl ER] 500 mg PO DAILY 03/31/18 Propranolol HCl [Propranolol HCl ER] 120 mg PO DAILY 03/31/18 Gabapentin 600 mg PO TID #90 tablet 04/03/18 Magnesium Oxide [Mag-Ox 400 mg Tablet] 400 mg PO TID #30 tablet 04/03/18 Pantoprazole Sodium [Protonix] 40 mg PO DAILY #30 tablet. 04/03/18 Quetiapine Fumarate [Seroquel 100 mg Tablet] 100 mg PO QAM 30 Days #30 tablet Quetiapine Fumarate [Seroquel 100 mg Tablet] 200 mg PO QHS 30 Days #60 tablet Ropinirole HCl [Requip] 3 mg PO QHS #30 04/03/18 Sucralfate [Carafate 1 gm Tablet] 1 gm PO ACHS #120 tablet 04/03/18 Metoclopramide HCl [Reglan 10 mg Tablet] 1 - 2 tab PO ASDIR PRN #25 tablet 04/20 Allergies/Adverse Reactions: hydrochlorothiazide [From Maxzide] Allergy (Verified 04/20/18 12:53) triamterene [From Maxzide] Allergy (Verified 04/20/18 12:53) Review of Systems Review of Systems: Unable to obtain as the patient falls asleep during my interview Physical Exam Vital Signs: Temp Pulse Resp BP Pulse Ox 98.9 F 74 15 120/70 98 07/02/18 18:28 07/02/18 20:29 07/02/18 20:26 07/02/18 20:29 07/02/18 20:26 Additional comments: General appearance: Well-developed, well-nourished, lethargic, falls asleep easily, slurred speech. Head: Normocephalic Eyes: PEERL, EOMI, vision is grossly intact. Ears: External auditory canal and tympanic membranes clear, hearing grossly intact. Nose: No nasal discharge. Throat: Oral cavity and pharynx dry . No inflammation, swelling, exudate or lesions. Neck: Neck supple, nontender without lymphadenopathy, masses or thyromegaly. Cardiac: Normal S1 and S2. No S3, S4 or murmurs. Rhythm is regular. There is no peripheral edema, cyanosis or pallor. Extremities are warm and well perfused. Capillary refill is less than 2 seconds. No carotid bruits. Lungs: Clear to auscultation and percussion without rales, rhonchi, wheezing or diminished breath sounds. Not using accessory muscles. Abdomen: Positive bowel sounds. Soft. Nondistended, nontender. No guarding or rebound. No masses. Extremities: No significant deformity or joint abnormality. No edema. Peripheral pulses intact. Neurological: Cranial nerves II through XII grossly intact. Unable to evaluate the rest secondary to her lethargy Skin: Skin normal color, texture and turgor with no lesions or eruptions, warm and dry. Psychiatric: The mental examination very difficult to obtain patient's lethargy Results Laboratory Results: 07/02/18 07/02/18 07/02/18 19:19 19:19 21:48 WBC 11.7 H RBC 4.49 Hgb 11.9 L Hct 35.5 L MCV 79 L MCH 26.4 L MCHC 33.5 RDW 15.8 H Plt Count 200 Seg Neutrophils % 64.6 Lymphocytes % 25.0 Monocytes % 7.1 Eosinophils % 2.5 Basophils % 0.8 Absolute Neutrophils 7.5 Absolute Lymphocytes 2.9 Absolute Monocytes 0.8 Absolute Eosinophils 0.3 Absolute Basophils 0.1 Sodium 138.6 Potassium 3.9 Chloride 98 Carbon Dioxide 29 Anion Gap 12 BUN 24 H Creatinine 1.36 H Est GFR ( Amer) 49 L Est GFR (Non-Af Amer) 40 L Glucose 157 H Calcium 9.6 Magnesium 1.6 Total Bilirubin 0.4 Direct Bilirubin 0.3 AST 40 H ALT 30 Alkaline Phosphatase 125 Creatine Kinase 78 Total Protein 7.0 Albumin 3.8 Urine Color NNAMDI Urine Appearance CLEAR Urine pH 5.0 Ur Specific [place] 1.012 Urine Protein 100 H Urine Glucose (UA) >=500 H Urine Ketones NEGATIVE Urine Blood SMALL H Urine Nitrite NEGATIVE Urine Bilirubin NEGATIVE Urine Urobilinogen NEGATIVE Ur Leukocyte Esterase MODERATE H Urine WBC (Auto) 4 Urine RBC (Auto) 5 U Hyaline Cast (Auto) 1 Squamous Epi Cells Auto 13 Urine Ascorbic Acid NEGATIVE Impressions: Chest X-Ray 07/02/18 19:02 IMPRESSION: NO ACUTE RADIOGRAPHIC FINDING IN THE CHEST. Assessment & Plan - Diagnosis (1) Orthostatic hypotension Is this a current diagnosis for this admission?: Yes Plan: Patient arrived to the emergency department with weakness, lightheadedness, orthostatic vital signs positive, IV fluid challenge improve her blood pressure but upon standing up blood pressure is still in the lower side. She will stay with telemetry monitoring, will continue IV fluids with normal saline. Will reassess orthostatic vital signs in the morning. Secondary to dehydration. (2) Encephalopathy Is this a current diagnosis for this admission?: Yes Plan: Patient symptoms confused, lethargic, falling asleep easily with slurred to speech unable to answer properly my questions. Tells me that she took her medications but only name Cymbalta and gabapentin him a false asleep again. To me seems like benzodiazepines overdose. I requested urine drug screen that was not done in the ED. Keep her under telemetry overnight she is on lorazepam at home. Reassess mental status in the morning. I see that she has eaten a hamburger and fries. (3) Paroxysmal atrial fibrillation Is this a current diagnosis for this admission?: Yes Plan: Initially in rapid atrial fibrillation which has resolved with IV fluids. Not on anticoagulation or aspirin. (4) Acute renal failure Is this a current diagnosis for this admission?: Yes Plan: BUN 24 and creatinine 1.35, again felt prerenal secondary to dehydration, reassessment of function in the morning after IV fluids. Do not feel further workup is warranted. (5) Diabetes mellitus type 2 in obese Is this a current diagnosis for this admission?: Yes Plan: Metformin will be on hold, Accu-Cheks q. before meals and at bedtime, insulin sliding scale and hypothermia protocol. (7) UTI (urinary tract infection) Is this a current diagnosis for this admission?: Yes Plan: Questionable UTI, will send urine culture and I will place the patient on Augmentin p.o. - Time Time Spent: 30 to 50 Minutes
[2018-07-03] MEDS ORDERED: DEXTROSE 40% GEL 15 GM TUBE PO PRN ×2 (00:29)
[2018-07-03] MEDS ORDERED: GLUCAGON,HUMAN RECOMB 1 MG INJ IM PRN (00:29)
[2018-07-03] MEDS ORDERED: DEXTROSE 50%-WATER 25 GM/50 ML DISP.SYRIN IV PRN ×2 (00:29)
[2018-07-03] MEDS ORDERED: AMOXICILLIN TR/POT CLAVULANATE 500-125 MG TAB PO ONE (01:00)
[2018-07-03] MEDS: NORMAL SALINE 1000 ML 1,000 ML IV PRN ×3 (01:08→22:33)
[2018-07-03 04:58] LABS: URINE AMPHETAMINES SCREEN NEGATIVE; URINE BARBITURATES SCREEN NEGATIVE; URINE BENZODIAZEPINES SCREEN NEGATIVE; URINE COCAINE SCREEN NEGATIVE; URINE MARIJUANA (THC) SCREEN NEGATIVE; URINE METHADONE SCREEN NEGATIVE; URINE PHENCYCLIDINE SCREEN NEGATIVE
[2018-07-03] MEDS: AMOXICILLIN TR/POT CLAVULANATE 500-125 MG TAB PO SCH ×2 (05:36→15:12)
[2018-07-03] MEDS: HEPARIN SOD (PORCINE) 5,000 UNIT/ML 1 ML SYRINGE SUBCUT SCH ×2 (05:37→15:11)
[2018-07-03 06:24] LABS: ABSOLUTE EOSINOPHILS # (AUTO) 0.1 10^3/uL (0.0-0.6); ABSOLUTE LYMPHOCYTES (AUTO) 1.7 10^3/uL (0.5-4.7); ABSOLUTE MONOCYTES (AUTO) 0.2 10^3/uL (0.1-1.4); ABSOLUTE NEUT (AUTO) 2.3 10^3/uL (1.7-8.2); BASOPHILS % (AUTO) 0.6 % (0-2); EOSINOPHILS % (AUTO) 3.2 % (0-6); HEMATOCRIT 30.7 % (36.0-47.0); HEMOGLOBIN 10.4 g/dL (12.0-15.5); LYMPHOCYTES % (AUTO) 38.9 % (13-45); MEAN CORPUSCULAR HEMOGLOBIN 26.8 pg (27.0-33.4); MEAN CORPUSCULAR HGB CONC 33.9 g/dL (32.0-36.0); MEAN CORPUSCULAR VOLUME 79 fl (80-97); MONOCYTES % (AUTO) 4.1 % (3-13); PLATELET COUNT 107 10^3/uL (150-450); RED BLOOD COUNT 3.89 10^6/uL (3.72-5.28); RED CELL DISTRIBUTION WIDTH 15.5 % (11.5-14.0); SEGMENTED NEUTROPHILS % (AUTO) 53.2 % (42-78); TOTAL CELLS COUNTED % (AUTO) 100 %; WHITE BLOOD COUNT 4.4 10^3/uL (4.0-10.5)
[2018-07-03 06:52] LABS: ANION GAP 8 (5-19); BLOOD UREA NITROGEN 22 mg/dL (7-20); CALCIUM 8.8 mg/dL (8.4-10.2); CARBON DIOXIDE 26 mmol/L (22-30); CHLORIDE 102 mmol/L (98-107); GLUCOSE 158 mg/dL (75-110); PHOSPHORUS 4.8 mg/dL (2.5-4.5); POTASSIUM 3.8 mmol/L (3.6-5.0); SODIUM 136.3 mmol/L (137-145)
[2018-07-03] MEDS: ROPINIROLE HCL 2 MG TABLET PO SCH ×2 (15:12→17:09)
[2018-07-03] MEDS ORDERED: LORAZEPAM 0.5 MG TABLET PO PRN (15:33)
[2018-07-03] MEDS ORDERED: (PENDING PHARMACY ID) (Quetiapine Fumarate [Seroquel] 200 MG) PO SCH (15:45)
[2018-07-03] MEDS: DULOXETINE HCL 30 MG CAPSULE.DR PO SCH ×2 (16:23→22:08)
[2018-07-03] MEDS: QUETIAPINE FUMARATE 100 MG TABLET PO SCH (16:23)
[2018-07-03] MEDS: BUPROPION HCL 100 MG TABLET PO SCH ×2 (16:23→22:08)
[2018-07-03] MEDS: INSULIN LISPRO 100 UNIT/ML 3 ML VIAL SUBCUT PRN ×2 (17:05→22:30)
--- NOTE | 2018-07-03 18:30 | PDOC PROGRESS REPORT ---
Subjective Progress Note for:: 07/03/18 Subjective:: Ms. Pena was admitted after presenting with dizziness, hypotension and AMAN. Patient was also lethargic on admission. This morning, patient is more awake and is coherent. She is tearful and appears anxious. She does have a history of bipolar affective disorder and anxiety. She expressed that she is upset because her home medications were not resumed last night. Explained to her that she came in hypotensive and confused hence most of her psych meds were held initially. She does say that she has been eating less and drinking less at home and thatthat she was sweating a lot as it's really hot at home because they have a poorly functioning air- conditioner and she has just been drinking tea. Reason For Visit: HYPOTENSION Physical Exam Vital Signs: Temp Pulse Resp BP Pulse Ox 98.3 F 75 18 142/101 H 99 07/03/18 15:27 07/03/18 15:27 07/03/18 15:27 07/03/18 15:27 07/03/18 15:27 Intake & Output 07/02/18 07/03/18 07/04/18 06:59 06:59 06:59 Intake Total 1000 1620 Balance 1000 1620 Weight 204 lb 5.896 oz General appearance: PRESENT: other - Patient is not in respiratory distress but does appear anxious and teary. Head exam: PRESENT: atraumatic, normocephalic Eye exam: PRESENT: conjunctiva pink, EOMI, PERRLA. ABSENT: scleral icterus Ear exam: PRESENT: normal external ear exam Neck exam: ABSENT: carotid bruit, JVD, lymphadenopathy, thyromegaly Respiratory exam: PRESENT: clear to auscultation sami. ABSENT: rales, rhonchi, wheezes Cardiovascular exam: PRESENT: RRR. ABSENT: diastolic murmur, rubs, systolic murmur Pulses: PRESENT: normal dorsalis pedis pul Rectal exam: PRESENT: deferred Neurological exam: PRESENT: alert, awake, oriented to person, oriented to place , oriented to time, oriented to situation Psychiatric exam: PRESENT: anxious Results Laboratory Results: 07/03/18 06:07 07/03/18 06:07 07/03/18 07/03/18 07/03/18 01:59 06:07 06:07 WBC 4.4 RBC 3.89 Hgb 10.4 L Hct 30.7 L MCV 79 L MCH 26.8 L MCHC 33.9 RDW 15.5 H Plt Count 107 L Seg Neutrophils % 53.2 Lymphocytes % 38.9 Monocytes % 4.1 Eosinophils % 3.2 Basophils % 0.6 Absolute Neutrophils 2.3 Absolute Lymphocytes 1.7 Absolute Monocytes 0.2 Absolute Eosinophils 0.1 Absolute Basophils 0.0 Sodium 136.3 L Potassium 3.8 Chloride 102 Carbon Dioxide 26 Anion Gap 8 BUN 22 H Creatinine 0.86 Est GFR ( Amer) > 60 Est GFR (Non-Af Amer) > 60 Glucose 158 H Calcium 8.8 Phosphorus 4.8 H Magnesium 1.6 Ammonia < 8.7 L Impressions: Chest X-Ray 07/02/18 19:02 IMPRESSION: NO ACUTE RADIOGRAPHIC FINDING IN THE CHEST. Assessment & Plan - Diagnosis (1) Hypotension Qualifiers: Hypotension type: unspecified hypotension type Qualified Code(s): I95.9 - Hypotension, unspecified Is this a current diagnosis for this admission?: Yes Plan: Resolved. Hypotension is likely from volume depletion from severe dehydration. Patient's blood pressures have been stable and have now been running on the higher side. Vision was initially started on Augmentin for a questionable UTI. Patient denies any urinary tract symptoms. Her hypertension is likely from severe volume depletion rather than sepsis. Will discontinue antibiotics. (2) Acute renal failure Is this a current diagnosis for this admission?: Yes Plan: This is likely prerenal from severe dehydration. Creatinine has improved from 1.36-0.86. Patient is not tolerating diet well. May discontinue IV fluids. Will recheck BMP tomorrow. (3) Bipolar affective disorder Is this a current diagnosis for this admission?: Yes Plan: We will resume patient's home medications including prn lorazepam, Wellbutrin, Seroquel and Cymbalta. - Time Time Spent with patient: 15-24 minutes
[2018-07-04] MEDS: BUPROPION HCL 100 MG TABLET PO SCH (06:17)
[2018-07-04 06:52] LABS: INTERNATIONAL RATION (INR) 1.08; PROTHROMBIN TIME 14.6 SEC (11.4-15.4)
[2018-07-04 07:00] LABS: ABSOLUTE EOSINOPHILS # (AUTO) 0.1 10^3/uL (0.0-0.6); ABSOLUTE LYMPHOCYTES (AUTO) 1.2 10^3/uL (0.5-4.7); ABSOLUTE MONOCYTES (AUTO) 0.1 10^3/uL (0.1-1.4); ABSOLUTE NEUT (AUTO) 1.1 10^3/uL (1.7-8.2); BASOPHILS % (AUTO) 0.5 % (0-2); EOSINOPHILS % (AUTO) 4.6 % (0-6); HEMATOCRIT 27.6 % (36.0-47.0); HEMOGLOBIN 9.5 g/dL (12.0-15.5); LYMPHOCYTES % (AUTO) 46.8 % (13-45); MEAN CORPUSCULAR HEMOGLOBIN 26.9 pg (27.0-33.4); MEAN CORPUSCULAR HGB CONC 34.4 g/dL (32.0-36.0); MEAN CORPUSCULAR VOLUME 78 fl (80-97); MONOCYTES % (AUTO) 5.1 % (3-13); RED BLOOD COUNT 3.53 10^6/uL (3.72-5.28); RED CELL DISTRIBUTION WIDTH 15.1 % (11.5-14.0); TOTAL CELLS COUNTED % (AUTO) 100 %
[2018-07-04 07:26] LABS: PLATELET COUNT 94 10^3/uL (150-450); WHITE BLOOD COUNT 2.7 10^3/uL (4.0-10.5)
[2018-07-04 08:15] VITALS: BP 189/90
[2018-07-04] MEDS: QUETIAPINE FUMARATE 100 MG TABLET PO SCH (08:19)
[2018-07-04] MEDS: ROPINIROLE HCL 2 MG TABLET PO SCH (09:13)
[2018-07-04] MEDS: DULOXETINE HCL 30 MG CAPSULE.DR PO SCH (09:15)
--- NOTE | 2018-07-04 18:21 | Progress Note ---
Provider Note Provider Note: No acute event overnight. Upon encounter this morning, patient is comfortable. However she expressed that she wanted to go home today. Explained and discussed in length patient's current lab results including a growth in the blood culture of a possible staph 1/2 bottles. Explained that this could be a possible contamination versus a true bacteremia and strongly recommend waiting for final results to come back. Also explained the patient's platelet has dropped and provider strongly recommend repeating a CBC tomorrow. Patient insists that she needs to go home today because she wants to take her meds at home the way she is supposed to. Provider explained in length that these medications were resumed yesterday and that this can be continued the way she is taking them at home. Explained again that this was initially held because she came in confused and hypotensive hands most of her home medications were initially held. Patient is oriented 3. She appears to be very coherent. She verbalizes she understands the risk and benefits of leaving AGAINST MEDICAL ADVICE. She says she has went AMA many times before and she knows that she can go back to the hospital if she needs to. Explained again the associated risks including risk of morbidity and of leaving AGAINST MEDICAL ADVICE and patient did verbalize she understood this and proceeded to say she will be more than willing to sign an AMA form. She denies any suicidal ideation. No delusions or hallucinations. When asked if I could update her her family about her status, patient says she prefers not to and that she will update them herself.
== END 2018-07-04 11:15 | disposition left against medical advice (07) ==
LOC: ER 18:07 → EH 22:27 → 4S 07-03 02:18
PROVIDERS: ADMIT Internal Medicine; ATTEND Internal Medicine
DX: I95.1 Orthostatic hypotension (principal); G93.40 Encephalopathy, unspecified; R53.1 Weakness; I10 Essential (primary) hypertension; R53.83 Other fatigue; F17.200 Nicotine dependence, unspecified, uncomplicated; I48.0 Paroxysmal atrial fibrillation; J96.00 Acute respiratory failure, unspecified whether with hypoxia or hypercapnia; E11.9 Type 2 diabetes mellitus without complications; E66.9 Obesity, unspecified; N39.0 Urinary tract infection, site not specified; Z53.21 Procedure and treatment not carried out due to patient leaving prior to being seen by health care provider; F31.89 Other bipolar disorder; K21.9 Gastro-esophageal reflux disease without esophagitis; E86.0 Dehydration; R10.30 Lower abdominal pain, unspecified; M79.605 Pain in left leg; M79.604 Pain in right leg; F41.9 Anxiety disorder, unspecified; Z68.31 Body mass index [BMI] 31.0-31.9, adult; Z83.3 Family history of diabetes mellitus; Z79.899 Other long term (current) drug therapy; Z80.0 Family history of malignant neoplasm of digestive organs; Z98.890 Other specified postprocedural states; Z98.51 Tubal ligation status
CPT/HCPCS: 93005; 99291; 96360; 96361; 36415 ×3; 87040; 82553; 82962 ×2; 82140; 82550; 83735 ×2; 84100; 85025 ×3; 85610; 87077; 80048; 80053; 81001; 84484; 80307; 83605; 83880; 71045; 93010; J3490 ×9; J1644; J1815; J7030; J7120

== ENCOUNTER 2018-12-13 12:52 | Emergency (ER) | payer MEDICAID ==
[2018-12-13] MEDS ORDERED: ASPIRIN 81 MG TABLET, CHEWABLE PO ONE (14:36)
--- NOTE | 2018-12-13 14:40 | ER Document Report ---
ED Medical Screen (RME) - General Chief Complaint: Dizziness Stated Complaint: DIZZINESS Time Seen by Provider: 12/13/18 14:29 Primary Care Provider: DANIS NEWMAN MD [Primary Care Provider] - Follow up as needed Mode of Arrival: Wheelchair Information source: Patient Notes: 58-year-old female with a history of hypertension and diabetes presents emergency department with near syncopal episodes. Patient states that she is felt like she is going to pass out today. She states that she checked her blood pressure laying and sitting before coming to the emergency department. She states her blood pressure was 82/57 sitting and 60 something over 45 standing. She states that she feels dehydrated. Patient states that she was diagnosed with urinary tract infection and is currently on medication for this. Patient does not know what medication she is on. She states that she has had some intermittent chest pain. No current chest pain at this time. I have greeted and performed a rapid initial assessment of this patient. A comprehensive ED assessment and evaluation of the patient, analysis of test results and completion of the medical decision making process will be conducted by additional ED providers. PHYSICAL EXAMINATION: GENERAL: Well-appearing, well-nourished and in no acute distress. HEAD: Atraumatic, normocephalic. EYES: Pupils equal round extraocular movements intact, conjunctiva are normal. ENT: Nares patent NECK: Normal range of motion LUNGS: No respiratory distress Musculoskeletal: Normal range of motion NEUROLOGICAL: Normal speech, normal gait. PSYCH: Normal mood, normal affect. SKIN: Warm, Dry, normal turgor, no rashes or lesions noted. TRAVEL OUTSIDE OF THE [place] IN LAST 30 DAYS: No - Related Data Allergies/Adverse Reactions: hydrochlorothiazide [From Maxzide] Allergy (Verified 12/13/18 12:56) triamterene [From Maxzide] Allergy (Verified 12/13/18 12:56) Past Medical History - Social History Chew tobacco use (# tins/day): No Frequency of alcohol use: None Drug Abuse: None - Past Medical History Cardiac Medical History: Reports: Hx Hypercholesterolemia - On no medication for same, Hx Hypertension Denies: Hx Congestive Heart Failure, Hx DVT, Hx Heart Attack, Hx Pulmonary Embolism, Hx Heart Murmur Pulmonary Medical History: Reports: Hx Bronchitis, Hx COPD, Hx Pneumonia, Hx Sleep Apnea Denies: Hx Respiratory Failure, Hx Tuberculosis Neurological Medical History: Denies: Hx Seizures Endocrine Medical History: Reports: Hx Diabetes Mellitus Type 1, Hx Diabetes Mellitus Type 2. Denies: Hx Hyperthyroidism, Hx Hypothyroidism Renal/ Medical History: Reports: Hx Renal Insufficiency - Her creatinines have remained under 1.0. Denies: Hx Peritoneal Dialysis GI Medical History: Reports: Hx Gastroesophageal Reflux Disease. Denies: Hx Cirrhosis, Hx Hepatitis, Hx Pancreatitis Musculoskeltal Medical History: Reports Hx Arthritis Skin Medical History: Denies Hx Eczema, Denies Hx Psoriasis Psychiatric Medical History: Reports: Hx Anxiety, Hx Bipolar Disorder, Hx Depression Infectious Medical History: Denies: Hx Hepatitis Past Surgical History: Reports: Hx Section - x2, Hx Tubal Ligation, Other - Laser eye surgery 2. - Immunizations Immunizations up to date: Yes Hx Diphtheria, Pertussis, Tetanus Vaccination: Yes History of Influenza Vaccine for 08/2017 - 01/2018 Season: Unknown Physical Exam - Vital signs Vitals: Temp Pulse Resp BP Pulse Ox 98.6 F 73 16 119/67 96 12/13/18 13:09 12/13/18 13:09 12/13/18 13:09 12/13/18 13:09 12/13/18 13:09 Course - Vital Signs Vital signs: Temp Pulse Resp BP Pulse Ox 98.6 F 73 16 119/67 96 12/13/18 13:09 12/13/18 13:09 12/13/18 13:09 12/13/18 13:09 12/13/18 13:09 Doctor's Discharge - Discharge Referrals: DANIS NEWMAN MD [Primary Care Provider] - Follow up as needed
--- NOTE | 2018-12-13 15:35 | RADIOLOGY REPORT (SQ) ---
EXAM DESCRIPTION: CHEST SINGLE VIEW COMPLETED DATE/TIME: 12/13/2018 3:21 pm REASON FOR STUDY: near syncope, chcest pain COMPARISON: Chest films 07/02/2018, 10/14/2016 EXAM PARAMETERS: NUMBER OF VIEWS: One view. TECHNIQUE: Single frontal radiographic view of the chest acquired. RADIATION DOSE: NA LIMITATIONS: None. FINDINGS: LUNGS AND PLEURA: No opacities, masses or pneumothorax. No pleural effusion. MEDIASTINUM AND HILAR STRUCTURES: No masses. Contour normal. HEART AND VASCULAR STRUCTURES: Heart normal in size. Normal vasculature. BONES: No acute findings. HARDWARE: None in the chest. OTHER: No other significant finding. IMPRESSION: NO ACUTE RADIOGRAPHIC FINDING IN THE CHEST. TECHNICAL DOCUMENTATION: JOB ID: [id number] [employer]- All Rights Reserved Reading location - IP/workstation name: [email or web address]
[2018-12-13 16:24] LABS: ABSOLUTE EOSINOPHILS # (AUTO) 0.2 10^3/uL (0.0-0.6); ABSOLUTE MONOCYTES (AUTO) 0.3 10^3/uL (0.1-1.4); ABSOLUTE NEUT (AUTO) 2.9 10^3/uL (1.7-8.2); BASOPHILS % (AUTO) 0.9 % (0-2); EOSINOPHILS % (AUTO) 4.4 % (0-6); HEMATOCRIT 34.7 % (36.0-47.0); HEMOGLOBIN 11.5 g/dL (12.0-15.5); LYMPHOCYTES % (AUTO) 35.5 % (13-45); MEAN CORPUSCULAR HEMOGLOBIN 25.9 pg (27.0-33.4); MEAN CORPUSCULAR HGB CONC 33.1 g/dL (32.0-36.0); MEAN CORPUSCULAR VOLUME 78 fl (80-97); MONOCYTES % (AUTO) 5.9 % (3-13); PLATELET COUNT 172 10^3/uL (150-450); RED BLOOD COUNT 4.42 10^6/uL (3.72-5.28); RED CELL DISTRIBUTION WIDTH 14.9 % (11.5-14.0); SEGMENTED NEUTROPHILS % (AUTO) 53.3 % (42-78); TOTAL CELLS COUNTED % (AUTO) 100 %; WHITE BLOOD COUNT 5.5 10^3/uL (4.0-10.5)
[2018-12-13 16:40] LABS: APPEARANCE,URINE CLEAR; BILIRUBIN,URINE NEGATIVE (NEGATIVE); COLOR,URINE YELLOW; GLUCOSE, URINE 150 mg/dL (NEGATIVE); KETONES,URINE NEGATIVE (NEGATIVE); LEUKOCYTE ESTERASE,URINE NEGATIVE (NEGATIVE); NITRITE,URINE NEGATIVE (NEGATIVE); PROTEIN,URINE NEGATIVE (NEGATIVE); UROBILINOGEN,URINE NEGATIVE mg/dL (<2.0)
[2018-12-13 16:41] LABS: ALANINE AMINOTRANSFERASE 23 U/L (9-52); ALBUMIN 4.1 g/dL (3.5-5.0); ALKALINE PHOSPHATASE 104 U/L (38-126); ANION GAP 10 (5-19); ASPARTATE AMINO TRANSFERASE 32 U/L (14-36); BILIRUBIN,DIRECT 0.2 mg/dL (0.0-0.4); BILIRUBIN,TOTAL 0.4 mg/dL (0.2-1.3); BLOOD UREA NITROGEN 24 mg/dL (7-20); CARBON DIOXIDE 29 mmol/L (22-30); CHLORIDE 103 mmol/L (98-107); GLUCOSE 86 mg/dL (75-110); SODIUM 141.7 mmol/L (137-145); TOTAL PROTEIN 6.8 g/dL (6.3-8.2)
[2018-12-13] MEDS ORDERED: NORMAL SALINE 1000 ML 1,000 ML IV ONE (21:30)
--- NOTE | 2018-12-13 21:32 | ER Document Report ---
ED General - General Chief Complaint: Dizziness Stated Complaint: DIZZINESS Time Seen by Provider: 12/13/18 14:29 Primary Care Provider: DANIS NEWMAN MD [ACTIVE PROVISIONAL STAFF] - Follow up as needed Mode of Arrival: Wheelchair Information source: Patient, Emergency Med Personnel, [facility] Records Notes: 58-year-old female with hypertension, hyperlipidemia, type 2 diabetes presents with complaint of lightheadedness. Patient states that she had 2 episodes where she felt like she was going to pass out. She denies any associated palpitations, chest pain, shortness of breath. Patient also complains of increasing fatigue. She was recently diagnosed with a urinary tract infection and is currently complaining Bactrim. Patient denies any fever, chills, abdominal pain, vomiting, diarrhea. TRAVEL OUTSIDE OF THE [place] IN LAST 30 DAYS: No - HPI Onset: Just prior to arrival Onset/Duration: Sudden Quality of pain: No pain Severity: None Associated symptoms: Other - Fatigue. denies: Chest pain, Diarrhea, Fever, Nausea, Vomiting, Shortness of breath, Sweating Exacerbated by: Denies Relieved by: Denies Similar symptoms previously: Yes Recently seen / treated by doctor: Yes - Related Data Allergies/Adverse Reactions: hydrochlorothiazide [From Maxzide] Allergy (Verified 12/13/18 12:56) triamterene [From Maxzide] Allergy (Verified 12/13/18 12:56) Past Medical History - General Information source: Patient - Social History Smoking Status: Current Every Day Smoker Cigarette use (# per day): Yes - 10 Chew tobacco use (# tins/day): No Smoking Education Provided: Yes - Smoking cessation counseling was provided for 4 minutes at the bedside Frequency of alcohol use: None Drug Abuse: None Lives with: Spouse/Significant other Family History: Reviewed & Not Pertinent, DM, Malignancy - Mother had liver cancer, Other - Father of sudden arrhythmia, had cirrhosis and a liver transplant. Patient has suicidal ideation: No Patient has homicidal ideation: No - Past Medical History Cardiac Medical History: Reports: Hx Hypercholesterolemia - On no medication for same, Hx Hypertension Denies: Hx Congestive Heart Failure, Hx DVT, Hx Heart Attack, Hx Pulmonary Embolism, Hx Heart Murmur Pulmonary Medical History: Reports: Hx Bronchitis, Hx COPD, Hx Pneumonia, Hx Sleep Apnea Denies: Hx Respiratory Failure, Hx Tuberculosis Neurological Medical History: Denies: Hx Seizures Endocrine Medical History: Reports: Hx Diabetes Mellitus Type 1, Hx Diabetes Mellitus Type 2. Denies: Hx Hyperthyroidism, Hx Hypothyroidism Renal/ Medical History: Reports: Hx Renal Insufficiency - Her creatinines have remained under 1.0. Denies: Hx Peritoneal Dialysis GI Medical History: Reports: Hx Gastroesophageal Reflux Disease. Denies: Hx Cirrhosis, Hx Hepatitis, Hx Pancreatitis Musculoskeletal Medical History: Reports Hx Arthritis Skin Medical History: Denies Hx Eczema, Denies Hx Psoriasis Psychiatric Medical History: Reports: Hx Anxiety, Hx Bipolar Disorder, Hx Depression Infectious Medical History: Denies: Hx Hepatitis Past Surgical History: Reports: Hx Section - x2, Hx Tubal Ligation, Other - Laser eye surgery 2. - Immunizations Immunizations up to date: Yes Hx Diphtheria, Pertussis, Tetanus Vaccination: Yes Hx Pneumococcal Vaccination: 02/26/12 Review of Systems - Review of Systems Notes: REVIEW OF SYSTEMS: CONSTITUTIONAL : Denies fever, chills, or sweats. Denies weight loss, recent hospitalizations. EENT: Denies visual changes, eye pain. Denies sore throat, oral lesions, difficulty swallowing. CARDIOVASCULAR: Denies chest pain. Denies palpitations. Denies lower extremity edema. RESPIRATORY: Denies cough. Denies shortness of breath, wheezing. GASTROINTESTINAL: Denies abdominal pain or distention. Denies nausea, vomiting, or diarrhea. Denies blood in vomitus, stools, or per rectum. Denies black, tarry stools. Denies constipation. GENITOURINARY: Denies difficulty urinating, painful urination, blood in urine, or vaginal discharge. MUSCULOSKELETAL: Denies back or neck pain or stiffness. Denies joint pain or swelling. SKIN: Denies rash, lesions or sores. HEMATOLOGIC : Denies easy bruising or bleeding. LYMPHATIC: Denies swollen glands. NEUROLOGICAL: Denies confusion or altered mental status. Denies loss of consciousness. Denies headache. Denies weakness or paralysis. Denies problems difficulty with ambulation, slurred speech. Denies sensory loss, numbness, or tingling. Denies seizures. PSYCHIATRIC: Denies anxiety or stress. Denies depression, suicidal ideation, or homicidal ideation. Denies visual or auditory hallucinations. Physical Exam - Vital signs Vitals: Temp Pulse Resp BP Pulse Ox 98.6 F 73 16 119/67 96 12/13/18 13:09 12/13/18 13:09 12/13/18 13:09 12/13/18 13:09 12/13/18 13:09 - Notes Notes: PHYSICAL EXAMINATION: GENERAL: Well-appearing, well-nourished and in no acute distress. HEAD: Atraumatic, normocephalic. EYES: Pupils equal round and reactive to light, extraocular movements intact, conjunctiva are normal. ENT: Nares patent, oropharynx clear without exudates. Dry mucous membranes. NECK: Normal range of motion, supple without lymphadenopathy LUNGS: Breath sounds clear to auscultation bilaterally and equal. No wheezes rales or rhonchi. HEART: Regular rate and rhythm without murmurs ABDOMEN: Soft, nontender, nondistended abdomen. No guarding, no rebound. No masses appreciated. Female : deferred Musculoskeletal: Normal range of motion, no pitting or edema. No cyanosis. NEUROLOGICAL: Cranial nerves grossly intact. Normal speech, normal gait. Normal sensory, motor exams PSYCH: Normal mood, normal affect. SKIN: Warm, Dry, normal turgor, no rashes or lesions noted. Course - Re-evaluation Re-evalutation: 12/13/18 21:33 Laboratory 12/13/18 12/13/18 12/13/18 15:50 15:50 15:50 WBC 5.5 RBC 4.42 Hgb 11.5 L Hct 34.7 L MCV 78 L MCH 25.9 L MCHC 33.1 RDW 14.9 H Plt Count 172 Seg Neutrophils % 53.3 Lymphocytes % 35.5 Monocytes % 5.9 Eosinophils % 4.4 Basophils % 0.9 Absolute Neutrophils 2.9 Absolute Lymphocytes 2.0 Absolute Monocytes 0.3 Absolute Eosinophils 0.2 Absolute Basophils 0.0 Sodium 141.7 Potassium 5.0 Chloride 103 Carbon Dioxide 29 Anion Gap 10 BUN 24 H Creatinine 0.87 Est GFR ( Amer) > 60 Est GFR (Non-Af Amer) > 60 Glucose 86 POC Glucose Calcium 10.0 Total Bilirubin 0.4 Direct Bilirubin 0.2 Neonat Total Bilirubin Not Reportable Neonat Direct Bilirubin Not Reportable Neonat Indirect Bili Not Reportable AST 32 ALT 23 Alkaline Phosphatase 104 Troponin I < 0.012 Total Protein 6.8 Albumin 4.1 Urine Color Urine Appearance Urine pH Ur Specific [place] Urine Protein Urine Glucose (UA) Urine Ketones Urine Blood Urine Nitrite Urine Bilirubin Urine Urobilinogen Ur Leukocyte Esterase Urine WBC (Auto) Urine RBC (Auto) U Hyaline Cast (Auto) Urine Bacteria (Auto) Squamous Epi Cells Auto Urine Mucus (Auto) Urine Ascorbic Acid 12/13/18 12/13/18 16:02 17:16 WBC RBC Hgb Hct MCV MCH MCHC RDW Plt Count Seg Neutrophils % Lymphocytes % Monocytes % Eosinophils % Basophils % Absolute Neutrophils Absolute Lymphocytes Absolute Monocytes Absolute Eosinophils Absolute Basophils Sodium Potassium Chloride Carbon Dioxide Anion Gap BUN Creatinine Est GFR ( Amer) Est GFR (Non-Af Amer) Glucose POC Glucose 89 Calcium Total Bilirubin Direct Bilirubin Neonat Total Bilirubin Neonat Direct Bilirubin Neonat Indirect Bili AST ALT Alkaline Phosphatase Troponin I Total Protein Albumin Urine Color YELLOW Urine Appearance CLEAR Urine pH 5.0 Ur Specific [place] 1.010 Urine Protein NEGATIVE Urine Glucose (UA) 150 H Urine Ketones NEGATIVE Urine Blood NEGATIVE Urine Nitrite NEGATIVE Urine Bilirubin NEGATIVE Urine Urobilinogen NEGATIVE Ur Leukocyte Esterase NEGATIVE Urine WBC (Auto) 1 Urine RBC (Auto) 1 U Hyaline Cast (Auto) 3 Urine Bacteria (Auto) TRACE Squamous Epi Cells Auto 4 Urine Mucus (Auto) RARE Urine Ascorbic Acid NEGATIVE Chest X-Ray 12/13/18 14:36 IMPRESSION: NO ACUTE RADIOGRAPHIC FINDING IN THE CHEST. Temp Pulse Resp BP Pulse Ox 98.6 F 73 16 119/67 96 12/13/18 13:09 12/13/18 13:09 12/13/18 13:09 12/13/18 13:09 12/13/18 13:09 12/14/18 01:49 58-year-old female with hypertension, hyperlipidemia, type 2 diabetes presents with complaint of lightheadedness. Patient states that she had 2 episodes where she felt like she was going to pass out. She denies any associated pa lpitations, chest pain, shortness of breath. Patient also complains of increasing fatigue. She was recently diagnosed with a urinary tract infection and is currently complaining Bactrim. Vital signs stable upon arrival. Patient does not appear toxic but she does appear dehydrated and has skin tenting, dry mucous membranes. EKG was obtained and showed the patient be in normal sinus rhythm. Exam, history is not consistent with arrhythmia, pulmonary embolism, ACS. Patient's lightheadedness is likely due to hypovolemia. Orthostatic vital signs were not obtained prior to fluid administration. Laboratory and imaging results were discussed with the patient. Patient comfortable with discharge home. Patient was evaluated and treated as appropriate for the patient's presenting symptoms and complaint, with consideration of any critical or life threatening conditions that may be associated with their obtained history and exam as noted above. All results were discussed with patient. Patient provided the opportunity to ask questions, and express concerns. Patient was educated on treatments based on their presumed diagnosis as noted above. At this time we will discharge the patient with return precautions and follow-up recommendations. Verbal discharge instructions given a the bedside. Medication warnings reviewed. Patient is in agreement with this plan and has verbalized understanding of return precautions. After careful consideration I feel that that patient can be safely discharged from the emergency department, they were advised to followup with a primary care physician in 2-3 days. Dictation on this chart was performed using voice recognition software and may result in unintended grammatical, spelling, syntax or errors. - Vital Signs Vital signs: Temp Pulse Resp BP Pulse Ox 98.6 F 73 14 132/68 H 100 12/13/18 13:09 12/13/18 13:09 12/13/18 22:01 12/13/18 22:40 12/13/18 22:01 - Laboratory Result Diagrams: 12/13/18 15:50 12/13/18 15:50 Laboratory results interpreted by me: 12/13/18 12/13/18 12/13/18 15:50 15:50 16:02 Hgb 11.5 L Hct 34.7 L MCV 78 L MCH 25.9 L RDW 14.9 H BUN 24 H POC Glucose Urine Glucose (UA) 150 H 12/13/18 21:46 Hgb Hct MCV MCH RDW BUN POC Glucose 283 H Urine Glucose (UA) - Diagnostic Test Radiology reviewed: Image reviewed, Reports reviewed - EKG Interpretation by Me EKG shows normal: Sinus rhythm Rate: Normal Rhythm: NSR Discharge - Discharge Clinical Impression: Near syncope, Dehydration Condition: Good Disposition: HOME, SELF-CARE Instructions: Dehydration ([facility]), Fatigue ([facility]), Near Syncopal Episode ([facility]) Additional Instructions: Follow up with your [id number] hours for further care or return to the ED IMMEDIATELY if symptoms worsen or you have any concerns. If you cannot afford to follow up with your primary care physician a list of low cost clinics have been provided at the end of your discharge papers as well. Most prescribed medications have multiple side effects. The safest thing to do is when filling your prescription speak to your pharmacist regarding possible interactions with your normal home medications and over the counter medications such as Ibuprofen, Tylenol, Benadryl. If you experience any symptoms that cause you discomfort or concern you should discontinue the medication immediately and return to the emergency room or call your primary care physician. Forms: Smoking Cessation Education Referrals: DANIS NEWMAN MD [ACTIVE PROVISIONAL STAFF] - Follow up as needed
[2018-12-13 22:42] VITALS: BP 132/68
--- NOTE | 2018-12-14 14:01 | EKG REPORT ---
SEVERITY:- ABNORMAL ECG - SINUS RHYTHM LEFT AXIS DEVIATION LEFT VENTRICULAR HYPERTROPHY : Confirmed by: Holli Interiano 14-Dec-2018 14:00:33
== END 2018-12-13 22:41 | disposition home or self-care (01) ==
LOC: ER 12:52
DX: R55 Syncope and collapse (principal); E86.0 Dehydration; R42 Dizziness and giddiness; F17.210 Nicotine dependence, cigarettes, uncomplicated; I10 Essential (primary) hypertension; E11.9 Type 2 diabetes mellitus without complications; E78.5 Hyperlipidemia, unspecified; Z98.51 Tubal ligation status
CPT/HCPCS: 36415; 71045; 80053; 81001; 82962; 84484; 85025; 87086; 93005; 93010; 99284; 99406

== ENCOUNTER 2019-01-26 01:11 | Emergency (ER) | payer MEDICAID ==
[2019-01-26] MEDS ORDERED: NORMAL SALINE 1000 ML 1,000 ML IV ONE ×2 (01:45→04:24)
[2019-01-26 01:54] LABS: ABSOLUTE EOSINOPHILS # (AUTO) 0.2 10^3/uL (0.0-0.6); ABSOLUTE MONOCYTES (AUTO) 0.2 10^3/uL (0.1-1.4); ABSOLUTE NEUT (AUTO) 2.7 10^3/uL (1.7-8.2); BASOPHILS % (AUTO) 0.5 % (0-2); EOSINOPHILS % (AUTO) 4.4 % (0-6); HEMOGLOBIN 11.3 g/dL (12.0-15.5); LYMPHOCYTES % (AUTO) 37.9 % (13-45); MEAN CORPUSCULAR HEMOGLOBIN 26.5 pg (27.0-33.4); MEAN CORPUSCULAR HGB CONC 33.2 g/dL (32.0-36.0); MEAN CORPUSCULAR VOLUME 80 fl (80-97); MONOCYTES % (AUTO) 4.7 % (3-13); PLATELET COUNT 175 10^3/uL (150-450); RED BLOOD COUNT 4.25 10^6/uL (3.72-5.28); SEGMENTED NEUTROPHILS % (AUTO) 52.5 % (42-78); TOTAL CELLS COUNTED % (AUTO) 100 %; WHITE BLOOD COUNT 5.2 10^3/uL (4.0-10.5)
--- NOTE | 2019-01-26 02:09 | ER Document Report ---
ED General - General Chief Complaint: Blood Pressure Problem Stated Complaint: FAST HEART RATE Time Seen by Provider: 01/26/19 01:35 Primary Care Provider: WILLIAMS ROLLE DO [Primary Care Provider] - Follow up as needed Notes: Patient is a 58-year-old female presents with complaint of feeling lightheaded. Patient says the afternoon she notes her heart was beating fast and she felt lightheaded and dizzy. She says she has had this happen before in the past and sometimes is related infection other times she is related to being dehydrated. She says she does frequently get UTIs. She denies any chest pain or shortness of breath. She says she has not noticed any dysuria. She says she does frequently have urinary incontinence. She denies any weakness or numbness into her legs or low back pain. 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 She did not hit her head. She said she just hit her right shoulder. She did not pass out. She is on any blood thinning medications. She said she did take off her medications for today. She is a diabetic and takes NovoLog 70/30. She denies abdominal pain. Paramedics did do orthostatic pressures and her pressure did drop significantly upon standing. TRAVEL OUTSIDE OF THE [place] IN LAST 30 DAYS: No - Related Data Allergies/Adverse Reactions: hydrochlorothiazide [From Maxzide] Allergy (Verified 12/13/18 12:56) triamterene [From Maxzide] Allergy (Verified 12/13/18 12:56) Past Medical History - Social History Smoking Status: Unknown if Ever Smoked Frequency of alcohol use: None Drug Abuse: None Family History: Reviewed & Not Pertinent, DM, Malignancy - Mother had liver cancer, Other - Father of sudden arrhythmia, had cirrhosis and a liver transplant. Patient has suicidal ideation: No Patient has homicidal ideation: No - Past Medical History Cardiac Medical History: Reports: Hx Hypercholesterolemia - On no medication for same, Hx Hypertension Denies: Hx Congestive Heart Failure, Hx DVT, Hx Heart Attack, Hx Pulmonary Embolism, Hx Heart Murmur Pulmonary Medical History: Reports: Hx Bronchitis, Hx COPD, Hx Pneumonia, Hx Sleep Apnea Denies: Hx Respiratory Failure, Hx Tuberculosis Neurological Medical History: Denies: Hx Seizures Endocrine Medical History: Reports: Hx Diabetes Mellitus Type 1, Hx Diabetes Mellitus Type 2. Denies: Hx Hyperthyroidism, Hx Hypothyroidism Renal/ Medical History: Reports: Hx Renal Insufficiency - Her creatinines have remained under 1.0. Denies: Hx Peritoneal Dialysis GI Medical History: Reports: Hx Gastroesophageal Reflux Disease. Denies: Hx C irrhosis, Hx Hepatitis, Hx Pancreatitis Musculoskeletal Medical History: Reports Hx Arthritis Skin Medical History: Denies Hx Eczema, Denies Hx Psoriasis Psychiatric Medical History: Reports: Hx Anxiety, Hx Bipolar Disorder, Hx Depression Infectious Medical History: Denies: Hx Hepatitis Past Surgical History: Reports: Hx Section - x2, Hx Tubal Ligation, Other - Laser eye surgery 2. - Immunizations Immunizations up to date: Yes Hx Diphtheria, Pertussis, Tetanus Vaccination: Yes Hx Pneumococcal Vaccination: 02/26/12 Review of Systems - Review of Systems Notes: My Normal Review Basic REVIEW OF SYSTEMS: CONSTITUTIONAL : Denies fever, chills, or sweats. Denies recent illness. EENT: Denies eye, ear, throat, or mouth pain or symptoms. Denies nasal or sinus congestion. CARDIOVASCULAR: Rapid heartbeat RESPIRATORY: Denies cough, cold, or chest congestion. Denies shortness of breath, difficulty breathing, or wheezing. GASTROINTESTINAL: Denies abdominal pain. Denies nausea, vomiting, or diarrhea. GENITOURINARY: Denies difficulty urinating, painful urination, burning, frequency, or blood in urine. FEMALE GENITOURINARY: Denies vaginal bleeding, abnormal or irregular periods. MUSCULOSKELETAL: Denies neck or back pain or joint pain or swelling. SKIN: Denies rash or skin lesions. HEMATOLOGIC : Denies easy bruising or bleeding. LYMPHATIC: Denies swollen, enlarged glands. NEUROLOGICAL: Denies altered mental status or loss of consciousness. Denies headache. Denies weakness or paralysis or loss of use of either side. Denies problems with gait or speech. Denies sensory or motor loss. Feels dizzy upon standing ALL OTHER SYSTEMS REVIEWED AND NEGATIVE. Physical Exam - Vital signs Vitals: Resp Pulse Ox 14 100 01/26/19 01:22 01/26/19 01:22 - Notes Notes: General Appearance: Well nourished, alert, cooperative, no acute distress, no obvious discomfort. Vitals: reviewed, See vital signs table. Head: no swelling or tenderness to the head Eyes: PERRL, EOMI, Conjuctiva clear Mouth: dry mucous membranes Lungs: No wheezing, No rales, No rhonci, No accessory muscle use, good air exchange bilaterally. Heart: Tachycardic rate, Regular rythm, No murmur, no rub Abdomen: Normal BS, soft, No rigidity, No abdominal tenderness, No guarding, no rebound, no abdominal masses, no organomegaly Extremities: strength 5/5 in all extremities, good pulses in all extremities, no swelling or tenderness in the extremities, no edema. Skin: warm, dry, appropriate color, no rash Neuro: speech clear, oriented x 3, normal affect, responds appropriately to questions. Cranial nerves II through XII are intact. Distal sensation intact. Patient moves all extremities without difficulty. Course - Re-evaluation Re-evalutation: 01/26/19 05:31 Patient is feeling much improved. Blood pressure has remained normal even upon standing. Is not dizzy or lightheaded. Talked her length about avoiding caffei nated drinks. She says she drinks a lot of caffeinated tea. Informed her she needs to drink water. I told her it is okay drink tea his longest is decaffeinated. I informed her she should avoid sweet tea as well because she is diabetic. At this time will discharge her home. I encouraged her to keep a log of her blood pressures in the follow-up with her doctor this coming week to review the log to see if she needs any adjustments in her blood pressure medication. Currently she is on propranolol 120 mg a day as well as lisinopril 5 mg a day. She initially was in junctional tachycardia when she first arrived. She did convert out of that after 1 L of fluids. She is now been in normal si nus rhythm since. She has no chest pain. No shortness of breath. She clinically looks very well. Her labs are unremarkable. I feel she safe to be discharged home. I strongly encouraged her return to ER if she has recurrent dizziness, lightheadedness, vomiting, any chest pain, shortness of breath, fevers, or if she feels unwell. Patient agrees with plan will be discharged home. Dictation of this chart was performed using voice recognition software; therefore, there may be some unintended grammatical errors. - Vital Signs Vital signs: Temp Pulse Resp BP Pulse Ox 15 127/72 H 96 01/26/19 05:01 01/26/19 05:01 01/26/19 05:01 - Laboratory Result Diagrams: 01/26/19 01:33 01/26/19 01:33 Laboratory results interpreted by me: 01/26/19 01/26/19 01/26/19 01:33 01:33 03:12 Hgb 11.3 L Hct 34.0 L MCH 26.5 L RDW 15.0 H Glucose 312 H Alkaline Phosphatase 139 H Urine Glucose (UA) 150 H - EKG Interpretation by Me Additional EKG results interpreted by me: 01/26/19 03:04 EKG is reviewed and interpreted by me. EKG shows junctional tachycardia with a rate of [address] segment elevation or depression. No ischemic T wave inversions. QRS duration is within normal range. QT interval is slightly prolonged. 01/26/19 04:15 EKG #2 is reviewed and interpreted by me. EKG shows sinus rhythm with a rate of [address] segment elevation or depression. No ischemic T wave inversions. VT interval, QRS duration, QT intervals are within normal range. Discharge - Discharge Clinical Impression: Dizziness, Orthostatic hypotension Condition: Good Disposition: HOME, SELF-CARE Additional Instructions: Please avoid caffeinated liquids. It is okay to drink non-caffeinated tea. Please try to drink water as well. Please stay well-hydrated. Please keep a log of your blood pressures and follow-up with your doctor this coming week to review your blood pressure readings so they can determine whether or not to make adjustments on your blood pressure medications. Please have a low threshold to return to the ER if you have chest pain, difficulty breathing, palpitations, dizziness, fevers, or if you feel unwell in any way. Referrals: WILLIAMS ROLLE DO [Primary Care Provider] - Follow up in 3-5 days
[2019-01-26 02:16] LABS: ALANINE AMINOTRANSFERASE 28 U/L (9-52); ALBUMIN 3.7 g/dL (3.5-5.0); ALKALINE PHOSPHATASE 139 U/L (38-126); ANION GAP 12 (5-19); ASPARTATE AMINO TRANSFERASE 21 U/L (14-36); BILIRUBIN,DIRECT 0.3 mg/dL (0.0-0.4); BILIRUBIN,TOTAL 0.4 mg/dL (0.2-1.3); BLOOD UREA NITROGEN 19 mg/dL (7-20); CALCIUM 9.4 mg/dL (8.4-10.2); CARBON DIOXIDE 27 mmol/L (22-30); CHLORIDE 100 mmol/L (98-107); GLUCOSE 312 mg/dL (75-110); POTASSIUM 4.1 mmol/L (3.6-5.0); SODIUM 138.5 mmol/L (137-145); TOTAL PROTEIN 6.6 g/dL (6.3-8.2)
--- NOTE | 2019-01-26 02:57 | RADIOLOGY REPORT (SQ) ---
EXAM DESCRIPTION: XR CHEST 1 VIEW COMPLETED DATE/TME: 01/26/2019 01:46 CLINICAL HISTORY: 58 years, Female, tachycardia, hypotension COMPARISON: 12/13/2018 chest NUMBER OF VIEWS: 1 TECHNIQUE: Portable chest LIMITATIONS: None. FINDINGS: Heart size normal. Lungs clear. No pneumothorax IMPRESSION: Negative chest copyright 2010 [employer]- All Rights Reserved
--- NOTE | 2019-01-26 02:57 | RADIOLOGY REPORT (SQ) ---
EXAM DESCRIPTION: XR SHOULDER 2 OR MORE VIEWS COMPLETED DATE/TME: 01/26/2019 01:45 CLINICAL HISTORY: 58 years, Female, trauma COMPARISON: None. NUMBER OF VIEWS: 3 TECHNIQUE: 3 view right shoulder LIMITATIONS: None. FINDINGS: Osteopenia. Negative for acute fracture or dislocation. Mild degenerative changes of the AC joint. IMPRESSION: Osteopenia. Mild degenerative change copyright 2010 [employer]- All Rights Reserved
[2019-01-26 03:27] LABS: APPEARANCE,URINE CLEAR; BILIRUBIN,URINE NEGATIVE (NEGATIVE); COLOR,URINE YELLOW; GLUCOSE, URINE 150 mg/dL (NEGATIVE); KETONES,URINE NEGATIVE (NEGATIVE); LEUKOCYTE ESTERASE,URINE NEGATIVE (NEGATIVE); NITRITE,URINE NEGATIVE (NEGATIVE); PROTEIN,URINE NEGATIVE (NEGATIVE); URINE SPECIFIC GRAVITY 1.012; UROBILINOGEN,URINE NEGATIVE mg/dL (<2.0)
[2019-01-26] MEDS ORDERED: INSULIN REG, HUMAN 100 UNIT/ML 3 ML VIAL (PYX) SUBCUT ONE (03:49)
[2019-01-26 05:06] VITALS: BP 127/72
--- NOTE | 2019-01-26 12:33 | EKG REPORT ---
SEVERITY:- ABNORMAL ECG - SINUS RHYTHM LAD, CONSIDER LEFT ANTERIOR FASCICULAR BLOCK : Confirmed by: Holli Interiano 26-Jan-2019 12:33:12
--- NOTE | 2019-01-26 12:34 | EKG REPORT ---
SEVERITY:- ABNORMAL ECG - JUNCTIONAL TACHYCARDIA LEFT ANTERIOR FASCICULAR BLOCK PROBABLE LATERAL INFARCT, AGE INDETERMINATE : Confirmed by: Holli Interiano 26-Jan-2019 12:33:41
== END 2019-01-26 05:48 | disposition home or self-care (01) ==
LOC: ER 01:11
DX: I95.1 Orthostatic hypotension (principal); R42 Dizziness and giddiness; E78.00 Pure hypercholesterolemia, unspecified; I10 Essential (primary) hypertension; J44.9 Chronic obstructive pulmonary disease, unspecified; E11.9 Type 2 diabetes mellitus without complications; Z87.440 Personal history of urinary (tract) infections; Z98.51 Tubal ligation status
CPT/HCPCS: 93005; 99284; 36415; 85025; 80053; 81001; 84484; 83605; 71045; 73030; 93010; J1815; J7030

== ENCOUNTER 2019-02-27 15:18 | Emergency (ER) | payer MEDICAID ==
[2019-02-27] MEDS ORDERED: NORMAL SALINE 1000 ML 1,000 ML IV PRN (17:55)
[2019-02-27] MEDS ORDERED: ASPIRIN 81 MG TABLET, CHEWABLE PO ONE (17:55)
[2019-02-27] MEDS ORDERED: NITROGLYCERIN 0.4 MG/TAB 25 TAB/BOTTLE SL STA (17:55)
--- NOTE | 2019-02-27 18:04 | ER Document Report ---
ED Medical Screen (RME) - General Chief Complaint: Dizziness Stated Complaint: DIZZINESS/BLOOD PRESSURE PROBLEMS Time Seen by Provider: 02/27/19 17:54 Primary Care Provider: WILLIAMS ROLLE DO [Primary Care Provider] - Follow up as needed Mode of Arrival: Ambulatory Information source: Patient, Relative TRAVEL OUTSIDE OF THE [place] IN LAST 30 DAYS: No - HPI Notes: 02/27/19 17:57 58-year-old female with history of type 2 insulin-depedent diabeties, hypertension, restless leg syndrome resents to the ED for complaints of shortnes s of breath, intermittent left-sided chest pain that lasts for approximately 20 seconds and resolves, which started today. She reports she has had intermittent issues with dizziness, states her lightheadedness and dizziness worse with standing. Today she checked her blood pressure at home and it was 90/80, which her blood pressure usually 120s over 80s. Patient does take propranolol and lisinopril for hypertension. no revious history of PR. 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 Patient states she is unsure she is had a history of arrhythmia or a fib, does not take anticoagulants. Patient shortness of breath, left-sided chest pain with dizziness has never occurred all at once, although, today all the symptoms have been occurring at the same time, which has patient concerned. exam: s1, S2, regular with PVC's. 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 no pedal edema bilaterally awake, alert, oriented. Patient having active left-sided chest pain, nonreproducible on palpation, patient grimacing. Patient states this is the chest pain she is referring to earlier. Discussed with patient that she needs nitro, will give baby aspirin initiate labs and place patient on media monitor. Will obtain EKG. I have greeted and performed a rapid initial assessment of this patient. A comprehensive ED assessment and evaluation of the patient, analysis of test results and completion of medical decision making process will be conducted by an additional ED providers. - Related Data Allergies/Adverse Reactions: hydrochlorothiazide [From Maxzide] Allergy (Verified 02/27/19 17:41) triamterene [From Maxzide] Allergy (Verified 02/27/19 17:41) Past Medical History - Social History Frequency of alcohol use: None Drug Abuse: None - Past Medical History Cardiac Medical History: Reports: Hx Hypercholesterolemia - On no medication for same, Hx Hypertension Denies: Hx Congestive Heart Failure, Hx DVT, Hx Heart Attack, Hx Pulmonary Embolism, Hx Heart Murmur Pulmonary Medical History: Reports: Hx Bronchitis, Hx COPD, Hx Pneumonia, Hx Sleep Apnea Denies: Hx Respiratory Failure, Hx Tuberculosis Neurological Medical History: Denies: Hx Seizures Endocrine Medical History: Reports: Hx Diabetes Mellitus Type 1, Hx Diabetes Mellitus Type 2. Denies: Hx Hyperthyroidism, Hx Hypothyroidism Renal/ Medical History: Reports: Hx Renal Insufficiency - Her creatinines have remained under 1.0. Denies: Hx Peritoneal Dialysis GI Medical History: Reports: Hx Gastroesophageal Reflux Disease. Denies: Hx Cirrhosis, Hx Hepatitis, Hx Pancreatitis Musculoskeltal Medical History: Reports Hx Arthritis Skin Medical History: Denies Hx Eczema, Denies Hx Psoriasis Psychiatric Medical History: Reports: Hx Anxiety, Hx Bipolar Disorder, Hx Depression Infectious Medical History: Denies: Hx Hepatitis Past Surgical History: Reports: Hx Section - x2, Hx Tubal Ligation, Other - Laser eye surgery 2. - Immunizations Immunizations up to date: Yes Hx Diphtheria, Pertussis, Tetanus Vaccination: Yes History of Influenza Vaccine for 08/2017 - 01/2018 Season: Unknown Physical Exam - Vital signs Vitals: Temp Pulse Resp BP Pulse Ox 98.4 F 87 18 114/67 97 02/27/19 15:27 02/27/19 15:27 02/27/19 15:27 02/27/19 15:27 02/27/19 15:27 Course - Vital Signs Vital signs: Temp Pulse Resp BP Pulse Ox 98.4 F 87 18 114/67 97 02/27/19 15:27 02/27/19 15:27 02/27/19 15:27 02/27/19 15:27 02/27/19 15:27 Doctor's Discharge - Discharge Referrals: WILLIAMS ROLLE DO [Primary Care Provider] - Follow up as needed
--- NOTE | 2019-02-27 18:42 | EKG REPORT ---
SEVERITY:- ABNORMAL ECG - SINUS RHYTHM NONSPECIFIC IVCD WITH LAD LEFT VENTRICULAR HYPERTROPHY ANTERIOR Q WAVES, POSSIBLY DUE TO LVH : Confirmed by: Ean Minaya MD 27-Feb-2019 18:41:17
[2019-02-27] MEDS ORDERED: ASPIRIN 81 MG TABLET, CHEWABLE ONE (18:50)
--- NOTE | 2019-02-27 18:55 | RADIOLOGY REPORT (SQ) ---
EXAM DESCRIPTION: CHEST SINGLE VIEW COMPLETED DATE/TIME: 02/27/2019 6:27 pm REASON FOR STUDY: sob, L chest pain, dizziness COMPARISON: 01/26/2019 TECHNIQUE: Single frontal radiographic view of the chest acquired. NUMBER OF VIEWS: One view. LIMITATIONS: None. FINDINGS: LUNGS AND PLEURA: No pneumothorax. No consolidation or pleural effusion. MEDIASTINUM AND HILAR STRUCTURES: Stable. HEART AND VASCULAR STRUCTURES: Stable. BONES: No acute findings. HARDWARE: None in the chest. OTHER: No other significant finding. IMPRESSION: NO ACUTE FINDINGS. TECHNICAL DOCUMENTATION: JOB ID: [id number] [place]-72 2010 [employer]- All Rights Reserved Reading location - IP/workstation name: [email or web address]
[2019-02-27 18:58] LABS: ABSOLUTE EOSINOPHILS # (AUTO) 0.2 10^3/uL (0.0-0.6); ABSOLUTE LYMPHOCYTES (AUTO) 1.8 10^3/uL (0.5-4.7); ABSOLUTE MONOCYTES (AUTO) 0.2 10^3/uL (0.1-1.4); ABSOLUTE NEUT (AUTO) 2.9 10^3/uL (1.7-8.2); BASOPHILS % (AUTO) 0.6 % (0-2); EOSINOPHILS % (AUTO) 4.3 % (0-6); HEMATOCRIT 30.8 % (36.0-47.0); HEMOGLOBIN 10.6 g/dL (12.0-15.5); LYMPHOCYTES % (AUTO) 35.1 % (13-45); MEAN CORPUSCULAR HEMOGLOBIN 27.1 pg (27.0-33.4); MEAN CORPUSCULAR HGB CONC 34.4 g/dL (32.0-36.0); MEAN CORPUSCULAR VOLUME 79 fl (80-97); MONOCYTES % (AUTO) 4.4 % (3-13); PLATELET COUNT 149 10^3/uL (150-450); RED BLOOD COUNT 3.91 10^6/uL (3.72-5.28); RED CELL DISTRIBUTION WIDTH 14.7 % (11.5-14.0); SEGMENTED NEUTROPHILS % (AUTO) 55.6 % (42-78); TOTAL CELLS COUNTED % (AUTO) 100 %; WHITE BLOOD COUNT 5.2 10^3/uL (4.0-10.5)
[2019-02-27 19:15] LABS: ALANINE AMINOTRANSFERASE 28 U/L (9-52); ALBUMIN 3.8 g/dL (3.5-5.0); ALKALINE PHOSPHATASE 105 U/L (38-126); ANION GAP 9 (5-19); ASPARTATE AMINO TRANSFERASE 21 U/L (14-36); BILIRUBIN,DIRECT 0.3 mg/dL (0.0-0.4); BILIRUBIN,TOTAL 0.5 mg/dL (0.2-1.3); BLOOD UREA NITROGEN 27 mg/dL (7-20); CALCIUM 9.4 mg/dL (8.4-10.2); CARBON DIOXIDE 26 mmol/L (22-30); CHLORIDE 103 mmol/L (98-107); CREATINE KINASE 77 U/L (30-135); GLUCOSE 197 mg/dL (75-110); POTASSIUM 4.5 mmol/L (3.6-5.0); SODIUM 138.2 mmol/L (137-145); TOTAL PROTEIN 6.8 g/dL (6.3-8.2)
[2019-02-27 19:25] LABS: CREATINE KINASE MB 1.26 ng/mL (<4.55); NT PRO BNP 39 pg/mL (5-900)
[2019-02-27 19:26] LABS: TROPONIN I < 0.012 ng/mL
--- NOTE | 2019-02-27 21:18 | ER Document Report ---
ED General - General Chief Complaint: Dizziness Stated Complaint: DIZZINESS/BLOOD PRESSURE PROBLEMS Time Seen by Provider: 02/27/19 17:54 Primary Care Provider: WILLIAMS ROLLE DO [NO LOCAL MD] - Follow up as needed Mode of Arrival: Ambulatory Notes: 58-year-old female with history of type 2 insulin-depedent diabeties, hypertension, restless leg syndrome resents to the ED for complaints of s hortness of breath, intermittent left-sided chest pain that lasts for approximately 20 seconds and resolves, which were more frequent today but notes that she has had these on and off for many months if not more. She reports she has had intermittent issues with dizziness, states her lightheadedness and dizziness worse with standing. Today she checked her blood pressure at home and it was 90/80, which her blood pressure usually 120s over 80s. Patient does take propranolol and lisinopril for hypertension. Patient's episodes of dizziness have been occurring for the last few months, evaluated at primary care office, patient does have a referral to see Dr. Porter, screen tender, for these issues on 03/13/19. Patient states she is unsure she is had a history of arrhythmia or a fib, does not take anticoagulants. Patient shortness of breath, left-sided chest pain with dizziness has never occurred all at once, although, today all the symptoms have been occurring at the same time, which has patient concerned. At the time of my evaluation the patient denies any symptoms states that she feels "good". No further chest discomfort, lightheadedness, shortness of breath or dizziness. Patient does admit to very minimal p.o. intake and states that her lightheadedness episodes seem to happen almost exclusively when she goes from sitting to standing position. TRAVEL OUTSIDE OF THE [place] IN LAST 30 DAYS: No - Related Data Allergies/Adverse Reactions: hydrochlorothiazide [From Maxzide] Allergy (Verified 02/27/19 17:41) triamterene [From Maxzide] Allergy (Verified 02/27/19 17:41) Past Medical History - General Information source: Patient, Relative - Social History Smoking Status: Current Every Day Smoker Frequency of alcohol use: None Drug Abuse: None Lives with: Spouse/Significant other Family History: Reviewed & Not Pertinent, DM, Malignancy - Mother had liver cancer, Other - Father of sudden arrhythmia, had cirrhosis and a liver transplant. Patient has suicidal ideation: No Patient has homicidal ideation: No - Past Medical History Cardiac Medical History: Reports: Hx Hypercholesterolemia - On no medication for same, Hx Hypertension Denies: Hx Congestive Heart Failure, Hx DVT, Hx Heart Attack, Hx Pulmonary Embolism, Hx Heart Murmur Pulmonary Medical History: Reports: Hx Bronchitis, Hx COPD, Hx Pneumonia, Hx Sleep Apnea Denies: Hx Respiratory Failure, Hx Tuberculosis Neurological Medical History: Denies: Hx Seizures Endocrine Medical History: Reports: Hx Diabetes Mellitus Type 1, Hx Diabetes Mellitus Type 2. Denies: Hx Hyperthyroidism, Hx Hypothyroidism Renal/ Medical History: Reports: Hx Renal Insufficiency - Her creatinines have remained under 1.0. Denies: Hx Peritoneal Dialysis GI Medical History: Reports: Hx Gastroesophageal Reflux Disease. Denies: Hx Cirrhosis, Hx Hepatitis, Hx Pancreatitis Musculoskeletal Medical History: Reports Hx Arthritis Skin Medical History: Denies Hx Eczema, Denies Hx Psoriasis Psychiatric Medical History: Reports: Hx Anxiety, Hx Bipolar Disorder, Hx Depression Infectious Medical History: Denies: Hx Hepatitis Past Surgical History: Reports: Hx Section - x2, Hx Tubal Ligation, Other - Laser eye surgery 2. - Immunizations Immunizations up to date: Yes Hx Diphtheria, Pertussis, Tetanus Vaccination: Yes Hx Pneumococcal Vaccination: 02/26/12 Review of Systems - Review of Systems Notes: Constitutional: Negative for fever. HENT: Negative for sore throat. Eyes: Negative for visual changes. Cardiovascular: Positive for intermittent chest discomfort, lightheadedness Respiratory: Positive for shortness of breath. Gastrointestinal: Negative for abdominal pain, vomiting or diarrhea. Genitourinary: Negative for dysuria. Musculoskeletal: Negative for back pain. Skin: Negative for rash. Neurological: Negative for headaches, weakness or numbness. 10 point ROS negative except as marked above and in HPI. Physical Exam - Vital signs Vitals: Temp Pulse Resp BP Pulse Ox 98.4 F 87 18 114/67 97 02/27/19 15:27 02/27/19 15:27 02/27/19 15:27 02/27/19 15:27 02/27/19 15:27 Interpretation: Normal Notes: PHYSICAL EXAMINATION: GENERAL: Well-appearing, well-nourished and in no acute distress. HEAD: Atraumatic, normocephalic. EYES: Pupils equal round and reactive to light, extraocular movements intact, sclera anicteric, conjunctiva are normal. ENT: nares patent, oropharynx clear without exudates. Moist mucous membranes. NECK: Normal range of motion, supple without lymphadenopathy LUNGS: Breath sounds clear to auscultation bilaterally and equal. No wheezes rales or rhonchi. HEART: Regular rate and rhythm without murmurs ABDOMEN: Soft, nontender, normoactive bowel sounds. No guarding, no rebound. No masses appreciated. EXTREMITIES: Normal range of motion, no pitting or edema. No cyanosis. NEUROLOGICAL: No focal neurological deficits. Moves all extremities spontaneo usly and on command. PSYCH: Normal mood, normal affect. SKIN: Warm, Dry, normal turgor, no rashes or lesions noted. Course - Re-evaluation Re-evalutation: 02/27/19 21:16 Patient presents with complaints of lightheadedness, intermittent chest pain and intermittent shortness of breath now all resolved. Patient has a long-standing history of similar symptoms nothing is otherwise new or different today except she does not usually have them altogether. At the time of my assessment patient's vitals are within normal limits without hypotension or tachycardia. She does have dry oral mucosa. 1 L IV fluid bolus has been initiated. The patient has no focal neurologic deficits on exam. Other than mild dehydration globally unremarkable. Clinical history not consistent with acute MS, pulmonary was, aortic dissection, or infectious etiology. Labs, EKG, chest x-ray all unremarkable. Will repeat troponin, ensure that the patient is able to ambulate without difficulty and if she does well with these measures will be discharged home with follow-up. Patient and at bedside are in agreement with this plan. 02/27/19 22:47 Repeat troponin remains normal. Patient remains asymptomatic, well in appearance, ambulatory without difficulty. Vitals remain within normal limits. At this time will discharge with return precautions and follow-up recommendations. Verbal discharge instructions given a the bedside and opsnow chamorro for questions given. Medication warnings reviewed. Patient is in agreement with this plan and has verbalized understanding of return precautions and the need for primary care follow-up in the next 24-72 hours. - Vital Signs Vital signs: Temp Pulse Resp BP Pulse Ox 97.8 F 72 15 125/72 98 02/27/19 18:30 02/27/19 20:01 02/27/19 22:01 02/27/19 22:01 02/27/19 22:01 - Laboratory Result Diagrams: 02/27/19 18:24 02/27/19 18:24 Laboratory results interpreted by me: 02/27/19 02/27/19 18:24 18:24 Hgb 10.6 L Hct 30.8 L MCV 79 L RDW 14.7 H Plt Count 149 L BUN 27 H Est GFR (Non-Af Amer) 50 L Glucose 197 H - Diagnostic Test Radiology reviewed: Image reviewed, Reports reviewed Radiology results interpreted by me: 02/27/19 21:18 Chest x-ray: No acute infiltrate or pneumothorax - EKG Interpretation by Me Additional EKG results interpreted by me: 02/27/19 21:18 Sinus rhythm, rate 74. LVH. No ST elevations or depressions. QTC 444. Discharge - Discharge Clinical Impression: Orthostatic hypotension, Lightheadedness, Intermittent chest pain Condition: Good Disposition: HOME, SELF-CARE Additional Instructions: Your workup today is overall reassuring. Please continue to drink plenty of fluids at home as this could be contributing to your episodes of lightheaded ness. In regards to your chest pain: You were seen today for chest pain. The exact cause of your pain is unclear. However, based on your cardiac enzyme testing, chest x-ray, and EKG it does not appear that it is from an immediately life-threatening cause at this time. Although your testing here is normal is critical that you follow-up with your primary care physician for continued evaluation of this chest pain and possible stress testing. I recommended you see your physician within the next 24-48 hours to be evaluated for consideration of a stress test. Please return to emergency department immediately if you have worsening of your chest pain, shortness of breath, vomiting, become unable to exert yourself due to pain or difficulty breathing, you pass out, or have any pain that radiates into your arms, jaw, or back. Please also return if you have any additional symptoms that are concerning to you. Referrals: WILLIAMS ROLLE, [NO LOCAL MD] - Follow up as needed
[2019-02-27 23:49] VITALS: BP 131/78
== END 2019-02-27 23:49 | disposition home or self-care (01) ==
LOC: ER 15:18
DX: I95.1 Orthostatic hypotension (principal); R42 Dizziness and giddiness; R06.02 Shortness of breath; R07.9 Chest pain, unspecified; F17.200 Nicotine dependence, unspecified, uncomplicated; E11.9 Type 2 diabetes mellitus without complications; I10 Essential (primary) hypertension; E78.00 Pure hypercholesterolemia, unspecified; J44.9 Chronic obstructive pulmonary disease, unspecified; Z98.51 Tubal ligation status
CPT/HCPCS: 93005; 99284; 36415; 82553; 82550; 83735; 85025; 80053; 84484; 83880; 71045; 93010; J7030

== ENCOUNTER 2019-03-07 15:53 | Emergency (ER) | payer MEDICAID ==
--- NOTE | 2019-03-07 16:20 | ER Document Report ---
ED General - General Stated Complaint: WEAKNESS Time Seen by Provider: 03/07/19 16:02 Primary Care Provider: ZACK LINN FNP [Primary Care Provider] - Follow up as needed Notes: Patient is experiencing weakness and dizziness and faint feeling. Says she has actually fainted a couple of times in the past 6 months. Today, she was feeling bad enough to call EMS and when they arrived, patient's blood pressure was 99/66. They did tilts on her and found that her blood pressure dropped from 90- 70 when she stood up. Patient was given a liter of saline while being brought in by EMS. Patient is a diabetic and her blood sugar by EMS was 194. She has not been sick on her stomach has not had any nausea or vomiting or diarrhea. Unaware of any fever. Does get frequent UTIs and has some symptoms of a UTI at this time. Patient denies any chest pain or shortness of breath or difficulty breathing. Patient has a history of tachycardia and is on a beta-sabrina, metoprolol, for that and for her blood pressure. TRAVEL OUTSIDE OF THE [place] IN LAST 30 DAYS: No - Related Data Allergies/Adverse Reactions: hydrochlorothiazide [From Maxzide] Allergy (Verified 03/07/19 16:00) triamterene [From Maxzide] Allergy (Verified 03/07/19 16:00) Past Medical History - Social History Smoking Status: Unknown if Ever Smoked Family History: Reviewed & Not Pertinent, DM, Malignancy - Mother had liver cancer, Other - Father of sudden arrhythmia, had cirrhosis and a liver transplant. - Past Medical History Cardiac Medical History: Reports: Hx Hypercholesterolemia - On no medication for same, Hx Hypertension Pulmonary Medical History: Reports: Hx Bronchitis, Hx COPD, Hx Pneumonia, Hx Sleep Apnea Neurological Medical History: Denies: Hx Seizures Endocrine Medical History: Reports: Hx Diabetes Mellitus Type 1, Hx Diabetes Mellitus Type 2 Renal/ Medical History: Reports: Hx Renal Insufficiency - Her creatinines have remained under 1.0 GI Medical History: Reports: Hx Gastroesophageal Reflux Disease Musculoskeletal Medical History: Reports Hx Arthritis Psychiatric Medical History: Reports: Hx Anxiety, Hx Bipolar Disorder, Hx Depression Infectious Medical History: Denies: Hx Hepatitis Past Surgical History: Reports: Hx Section - x2, Hx Tubal Ligation, Other - Laser eye surgery 2. - Immunizations Immunizations up to date: Yes Hx Diphtheria, Pertussis, Tetanus Vaccination: Yes Hx Pneumococcal Vaccination: 02/26/12 Review of Systems - Review of Systems Notes: REVIEW OF SYSTEMS: CONSTITUTIONAL : Denies fever. EENT: Denies eye, ear, nose or mouth or throat pain or other symptoms. CARDIOVASCULAR: Denies chest pain. RESPIRATORY: Denies cough, chest congestion, or shortness of breath. GASTROINTESTINAL: Denies abdominal pain or nausea, vomiting, or diarrhea. GENITOURINARY: See HPI.. MUSCULOSKELETAL: Denies back or neck pain. Denies joint pain or swelling. SKIN: Has a rash on the proximal inner right thigh that she says has been there for several months looks like a contact dermatitis to me. NEUROLOGICAL: Denies LOC or altered mental status. Denies headache. Denies sensory loss or motor deficits. ALL OTHER SYSTEMS REVIEWED AND NEGATIVE. Physical Exam - Vital signs Vitals: Temp 97.7 F 03/07/19 16:00 Interpretation: Normal. No: Hypotensive Notes: PHYSICAL EXAMINATION: GENERAL: Well-appearing, in no acute distress. Vital signs are all normal initially. Blood pressure 118/69 on the monitor as I am examining the patient. Heart rate less than 100. HEAD: Atraumatic, normocephalic. EYES: Pupils equal round and reactive to light, extraocular movements intact. ENT: oropharynx clear without exudates. Moist mucous appear dry and the patient's tongue looks especially dry. Patient says she hates water and does not drink enough because of that. Later in her stay, as I was discussing her lab results and about discharge her, patient says that she has a sore throat this developed over the past hour or so. Patient uvula looks slightly edematous and there is some erythema x but no exudates and nothing that looks like an infection. 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 NECK: Normal range of motion, supple. LUNGS: Breath sounds clear and equal bilaterally. HEART: Regular rate and rhythm without murmurs. ABDOMEN: Soft, nontender. No guarding or rebound. No masses. BACK: No tenderness throughout entire back. EXTREMITIES: Normal range of motion without pain. NEUROLOGICAL: Normal speech, normal gait. Normal sensory, motor, and reflex exams. Awake, alert, and oriented x3. Cranial nerves normal. PSYCH: Normal mood, normal affect. SKIN: Warm, dry, small area of erythematous rash of the proximal inner right thigh that looks like contact dermatitis. Does not look like a yeast infection. Course - Re-evaluation Re-evalutation: 03/07/19 19:35 Her urinalysis looks like she had a UTI with moderate leukocyte esterase and bacteria in her urine. Especially given that the patient has symptoms suggestive of a UTI. Patient does not appear to be septic. Lactic acid is 0.8. CBC is quite benign looking with a white count of only 4500 with no shift present. Checked orthostatics one more time and patient's blood pressure dropped from 90- 60 when she stood up, but she is not symptomatic and the remaining vital signs are all okay. Patient is going to get a gram of Rocephin IV and a another liter of saline which will be her third liter. Advised her to strongly find some way to adjust the taste of water social drink more because she needs to be better hydrated. - Vital Signs Vital signs: Temp Pulse Resp BP Pulse Ox 97.7 F 76 13 90/60 L 97 03/07/19 16:00 03/07/19 19:25 03/07/19 18:32 03/07/19 19:25 03/07/19 19:25 - Laboratory Result Diagrams: 03/07/19 16:15 03/07/19 16:15 Laboratory results interpreted by me: 03/07/19 03/07/19 03/07/19 16:15 16:15 17:24 RBC 3.60 L Hgb 9.6 L Hct 28.4 L MCV 79 L MCH 26.7 L RDW 14.4 H Plt Count 131 L BUN 25 H Creatinine 1.55 H Est GFR ( Amer) 42 L Est GFR (Non-Af Amer) 34 L Glucose 215 H Total Protein 6.1 L Urine Protein 30 H Ur Leukocyte Esterase MODERATE H - EKG Interpretation by [facility] EKG shows normal: Sinus rhythm Rate: Normal Additional EKG results interpreted by [facility]: 03/07/19 19:41 EKG shows nonspecific intraventricular conduction defect. No change from prev ious EKG in February of this year. Discharge - Discharge Clinical Impression: UTI (urinary tract infection), Dehydration Condition: Stable Disposition: HOME, SELF-CARE Additional Instructions: Dehydration Dehydration can result from vomiting or diarrhea, fever, or decreased intake of fluids. If severe, hospitalization and intravenous fluids may be required. Most cases are treated at home with fluids by mouth. For the next 24 hours, drink lots of clear fluids. In mild cases, this can be soda pop or sports drinks. For more severe dehydration, the doctor may recommend special fluids such as Pedialyte or Lytren. Try to get three liters ( 3 quarts) of fluid per day. If vomiting occurs, continue to drink the fluids frequently (every 15 to 20 minutes), but in small amounts (one or two ounces). Depending on the type of dehydration, the doctor may prescribe antinausea medicine or potassium replacements. Call the doctor or return for re-examination if you become progressively weak, vomit repeatedly, or have other new symptoms. URINARY TRACT INFECTION: Your evaluation indicates that you have a urinary tract infection. This is due to germs growing in the bladder. This is a common problem. This infection usually responds quickly to antibiotics. Your antibiotic should be taken exactly as prescribed. Drink plenty of fluids -- three to four quarts a day. Occasionally, a bladder anesthetic will be prescribed to help stop the feeling of urgency until the antibiotic has a chance to clear the infection. This may cause your urine to be dark orange. Certain urine infections require a culture. If the doctor obtained a culture, the results will be back in two days. You should call to see if a change in treatment is needed. A repeat urinalysis after you finish treatment is often recommended. The physician will let you know if further testing is required. Call the doctor if you develop fever, chills, flank pain, inability to urinate, or blood in the urine. ANTIBIOTIC THERAPY: You have been given an antibiotic prescription. It's important that you take all the medication, unless instructed otherwise by your physician. Failure to complete the entire course can result in relapse of your condition. Common side effects of antibiotics include nausea, intestinal cramping, or diarrhea. Women may develop vaginal yeast infections, and babies can get yeast (thrush) in the mouth following the use of antibiotics. Contact your physician if you develop significant side effects from this medication. Allergy to this antibiotic can result in hives, wheezing, faintness, or itching. If symptoms of allergy occur, stop the medication and call the doctor. Rocephin You have been given an injection of an antibiotic called Rocephin (ceftriax one). Sometimes the injection must be combined with antibiotic pills. For some infections, such as an uncomplicated ear infection, Rocephin provides all the antibiotic that's needed. The antibiotic will be in your body for about two days. For serious infections, we usually repeat doses of Rocephin daily. Side effects are very unusual following a shot. Women may develop vaginal yeast infections, and babies can get yeast (thrush) in the mouth following the use of antibiotics. Contact your physician if you have symptoms with this medication. Allergy to this antibiotic can result in hives, wheezing, faintness, or itching. If symptoms of allergy occur, call the doctor at once. CEPHALEXIN: The antibiotic you've been prescribed is a member of the cephalosporin class. This type of antibiotic covers a wide variety of infections, including those of the skin, lungs, and urinary tract. It's useful for staph infections. This antibiotic is slightly similar to the penicillin family. In rare cases, a person who is allergic to penicillin will also be allergic to this medication. If you have had a severe allergic reaction to penicillin, and have not taken this antibiotic since that time, notify your doctor. Antibiotics which cover many germs ("broad spectrum" antibiotics) are more likely to cause diarrhea or "yeast" infections. Women prone to vaginal yeast problems may suffer an attack after taking this antibiotic. In infants, oral thrush (white spots "stuck" on the cheek) or yeast diaper rash may result. See your doctor if these problems occur. Call at once if you develop itching, hives, shortness of breath, or lightheadedness. Fluconazole Fluconazole (Diflucan) is an antifungal drug. It is useful for serious fungal infections, but is also excellent for oral or vaginal yeast infections. Diflucan interacts with some medicines. This is a concern if you are taking anticoagulants (such as Coumadin), phenytoin (Dilantin), cyclosporin, or oral hypoglycemics (such as tolbutamide, Orinase, glipizide, Glucotrol, glyburide, DiaBeta, Glynase, and Micronase). Be sure the doctor knows if you are taking one of these medicines. We don't know how Diflucan affects . If you are planning to become , discuss this with your doctor. Diflucan has few side effects. Minor side effects may include nausea, headache, or diarrhea. Call the doctor if you develop a skin rash, shortness of breath, or other new symptoms. Stop taking your beta-sabrina blood pressure medications. Continue to take your lisinopril blood pressure medication. Follow-up with your primary care physician next week to see if you should resume that beta-sabrina medication or if you should continue to hold taking it. It may cause your blood pressure to be too low and it may slow your heart down in both of those could be contributing to your feeling so weak and dizzy. FOLLOW-UP CARE: If you have been referred to a physician for follow-up care, call the physicians office for an appointment as you were instructed or within the next two days. If you experience worsening or a significant change in your symptoms, notify the physician immediately or return to the Emergency Department at any time for re-evaluation. Prescriptions: Cephalexin Monohydrate [Keflex 500 mg Capsule] 500 mg PO TID 5 Days #15 capsule Fluconazole [Diflucan] 150 mg PO ONCE PRN #1 tablet PRN Reason: Referrals: ZACK LINN FNP [Primary Care Provider] - Follow up as needed
[2019-03-07] MEDS ORDERED: NORMAL SALINE 1000 ML 1,000 ML IV ONE ×2 (16:26→19:23)
[2019-03-07 16:32] LABS: ABSOLUTE EOSINOPHILS # (AUTO) 0.2 10^3/uL (0.0-0.6); ABSOLUTE LYMPHOCYTES (AUTO) 1.5 10^3/uL (0.5-4.7); ABSOLUTE MONOCYTES (AUTO) 0.2 10^3/uL (0.1-1.4); ABSOLUTE NEUT (AUTO) 2.6 10^3/uL (1.7-8.2); BASOPHILS % (AUTO) 0.4 % (0-2); EOSINOPHILS % (AUTO) 3.4 % (0-6); HEMATOCRIT 28.4 % (36.0-47.0); HEMOGLOBIN 9.6 g/dL (12.0-15.5); LYMPHOCYTES % (AUTO) 32.2 % (13-45); MEAN CORPUSCULAR HEMOGLOBIN 26.7 pg (27.0-33.4); MEAN CORPUSCULAR HGB CONC 33.9 g/dL (32.0-36.0); MEAN CORPUSCULAR VOLUME 79 fl (80-97); MONOCYTES % (AUTO) 5.5 % (3-13); PLATELET COUNT 131 10^3/uL (150-450); RED CELL DISTRIBUTION WIDTH 14.4 % (11.5-14.0); SEGMENTED NEUTROPHILS % (AUTO) 58.5 % (42-78); TOTAL CELLS COUNTED % (AUTO) 100 %; WHITE BLOOD COUNT 4.5 10^3/uL (4.0-10.5)
[2019-03-07 16:56] LABS: ALANINE AMINOTRANSFERASE 26 U/L (9-52); ALBUMIN 3.5 g/dL (3.5-5.0); ALKALINE PHOSPHATASE 93 U/L (38-126); ANION GAP 10 (5-19); ASPARTATE AMINO TRANSFERASE 25 U/L (14-36); BILIRUBIN,DIRECT 0.3 mg/dL (0.0-0.4); BILIRUBIN,TOTAL 0.7 mg/dL (0.2-1.3); BLOOD UREA NITROGEN 25 mg/dL (7-20); CALCIUM 8.8 mg/dL (8.4-10.2); CARBON DIOXIDE 27 mmol/L (22-30); CHLORIDE 103 mmol/L (98-107); GLUCOSE 215 mg/dL (75-110); POTASSIUM 3.7 mmol/L (3.6-5.0); SODIUM 140.3 mmol/L (137-145); TOTAL PROTEIN 6.1 g/dL (6.3-8.2)
--- NOTE | 2019-03-07 17:27 | RADIOLOGY REPORT (SQ) ---
EXAM DESCRIPTION: CHEST 2 VIEWS COMPLETED DATE/TIME: 03/07/2019 5:12 pm REASON FOR STUDY: short of breath COMPARISON: 02/27/2019 EXAM PARAMETERS: NUMBER OF VIEWS: two views TECHNIQUE: Digital Frontal and Lateral radiographic views of the chest acquired. RADIATION DOSE: NA LIMITATIONS: none FINDINGS: LUNGS AND PLEURA: No opacities, masses or pneumothorax. No pleural effusion. MEDIASTINUM AND HILAR STRUCTURES: No masses or contour abnormalities. HEART AND VASCULAR STRUCTURES: Heart normal size. No evidence for failure. BONES: No acute findings. HARDWARE: None in the chest. OTHER: No other significant finding. IMPRESSION: NO ACUTE RADIOGRAPHIC FINDING IN THE CHEST. TECHNICAL DOCUMENTATION: JOB ID: [id number] [employer]- All Rights Reserved Reading location - IP/workstation name: [email or web address]
[2019-03-07 17:52] LABS: APPEARANCE,URINE CLOUDY; BILIRUBIN,URINE NEGATIVE (NEGATIVE); GLUCOSE, URINE NEGATIVE (NEGATIVE); KETONES,URINE NEGATIVE (NEGATIVE); LEUKOCYTE ESTERASE,URINE MODERATE (NEGATIVE); NITRITE,URINE NEGATIVE (NEGATIVE); PROTEIN,URINE 30 mg/dL (NEGATIVE); URINE SPECIFIC GRAVITY 1.017; UROBILINOGEN,URINE NEGATIVE mg/dL (<2.0)
[2019-03-07 17:53] LABS: COLOR,URINE AMBER
[2019-03-07] MEDS ORDERED: CEFTRIAXONE 1 GM/D5W RTU 1 GM/50 ML RTUPB IV ONE (19:10)
[2019-03-07 21:31] VITALS: BP 111/74
--- NOTE | 2019-03-07 23:22 | EKG REPORT ---
SEVERITY:- ABNORMAL ECG - SINUS RHYTHM FIRST DEGREE AV BLOCK NONSPECIFIC IVCD WITH LAD LVH WITH SECONDARY REPOLARIZATION ABNORMALITY : Confirmed by: Holli Interiano 07-Mar-2019 23:21:42
== END 2019-03-07 21:32 | disposition home or self-care (01) ==
LOC: ER 15:53
DX: E86.0 Dehydration (principal); N39.0 Urinary tract infection, site not specified; R53.1 Weakness; R42 Dizziness and giddiness; I10 Essential (primary) hypertension; R21 Rash and other nonspecific skin eruption; J02.9 Acute pharyngitis, unspecified; I45.9 Conduction disorder, unspecified; R00.0 Tachycardia, unspecified; Z79.899 Other long term (current) drug therapy; J44.9 Chronic obstructive pulmonary disease, unspecified; E11.9 Type 2 diabetes mellitus without complications; Z88.8 Allergy status to other drugs, medicaments and biological substances
CPT/HCPCS: 93005; 99284; 96361; 96365; 36415; 87040; 87086; 85025; 87077; 80053; 81001; 84484; 87186; 71046; 93010; J7030; J0696

== ENCOUNTER 2019-04-01 09:08 | Emergency (ER) | payer MEDICAID ==
--- NOTE | 2019-04-01 09:30 | ER Document Report ---
ED Medical Screen (RME) - General Chief Complaint: General Weakness Stated Complaint: WEAKNESS Primary Care Provider: ZACK LINN FNP [Primary Care Provider] - Follow up as needed TRAVEL OUTSIDE OF THE [place] IN LAST 30 DAYS: No - HPI Notes: 04/01/19 09:26 Patient is a 59-year-old female with a history of type 2 insulin-depedent diabeties, hypertension, restless leg syndrome who presents complaining of generalized weakness, and having one reading of low blood pressure this morning. Patient states that she was outside working when she started to feel weak. Patient states that she has had these symptoms multiple times over the course of 4 to 5 months. She has been evaluated here for similar symptoms and she is usually dehydrated. She was seen by cardiology on March 13 and was supposed to mart[place] ve an echocardiogram performed as well as a stress test, but could not have it done and needs to reschedule. Patient states that she does not have any electricity in her house which means she has no air-conditioning and she is constantly sweating. Patient states that she last urinated yesterday about 20 hours ago. She otherwise has not had any shortness of breath, dyspnea on exertion, or chest pain. She has not had any history of CVA, TIA, DE, PE, DVT. Denies any headache, fever, neck pain, changes in vision/speech/mentation/hearing, URI, sore throat, chest pain, palpitations, syncope, cough, shortness of breath, wheeze, dyspnea, abdominal pain, nausea/vomiting/diarrhea, urinary retention, dysuria, hematuria, loss of control of bowel or bladder, numbness/tingling, muscle paralysis/weakness, or rash. I have treated and performed a rapid initial assessment of this patient. A comprehensive ED assessment and evaluation of the patient, analysis of test results and completion of medical decision making process will be conducted by additional ED providers. PHYSICAL EXAMINATION: GENERAL: Well-appearing, well-nourished and in no acute distress. A&Ox4. Answers questions appropriately. Eyes: PERRLA, EOMI b/l. No nystagmus. LUNGS: Breath sounds clear to auscultation bilaterally and equal. No wheezes rales or rhonchi. HEART: Regular rate and rhythm without murmurs, rubs, gallops. Extremities: No cyanosis, clubbing, or edema b/l. NEUROLOGICAL: Normal speech, normal gait. Cranial nerves grossly intact. No focal weakness. PSYCH: Normal mood, normal affect. - Related Data Allergies/Adverse Reactions: hydrochlorothiazide [From Maxzide] Allergy (Verified 04/01/19 09:10) triamterene [From Maxzide] Allergy (Verified 04/01/19 09:10) Past Medical History - Past Medical History Cardiac Medical History: Reports: Hx Hypercholesterolemia - On no medication for same, Hx Hypertension Denies: Hx Congestive Heart Failure, Hx DVT, Hx Heart Attack, Hx Pulmonary Embolism, Hx Heart Murmur Pulmonary Medical History: Reports: Hx Bronchitis, Hx COPD, Hx Pneumonia, Hx Sleep Apnea Denies: Hx Respiratory Failure, Hx Tuberculosis Neurological Medical History: Denies: Hx Seizures Endocrine Medical History: Reports: Hx Diabetes Mellitus Type 1, Hx Diabetes Mellitus Type 2. Denies: Hx Hyperthyroidism, Hx Hypothyroidism Renal/ Medical History: Reports: Hx Renal Insufficiency - Her creatinines have remained under 1.0. Denies: Hx Peritoneal Dialysis GI Medical History: Reports: Hx Gastroesophageal Reflux Disease. Denies: Hx Cirrhosis, Hx Hepatitis, Hx Pancreatitis Musculoskeltal Medical History: Reports Hx Arthritis, Denies Hx Systemic Lupus Erythematosus Skin Medical History: Denies Hx Eczema, Denies Hx Psoriasis Psychiatric Medical History: Reports: Hx Anxiety, Hx Bipolar Disorder, Hx Depression Infectious Medical History: Denies: Hx Hepatitis Past Surgical History: Reports: Hx Section - x2, Hx Tubal Ligation, Other - Laser eye surgery 2. - Immunizations Immunizations up to date: Yes Hx Diphtheria, Pertussis, Tetanus Vaccination: Yes History of Influenza Vaccine for 08/2017 - 01/2018 Season: Unknown Physical Exam - Vital signs Vitals: Temp Pulse Resp BP Pulse Ox 98.4 F 79 20 109/62 95 04/01/19 09:15 04/01/19 09:15 04/01/19 09:15 04/01/19 09:15 04/01/19 09:15 Course - Vital Signs Vital signs: Temp Pulse Resp BP Pulse Ox 98.4 F 79 20 109/62 95 04/01/19 09:15 04/01/19 09:15 04/01/19 09:15 04/01/19 09:15 04/01/19 09:15 Doctor's Discharge - Discharge Referrals: TEMITOPE,ZACK, [employer] [Primary Care Provider] - Follow up as needed
[2019-04-01] MEDS: NORMAL SALINE 1000 ML 1,000 ML IV PRN ×2 (09:44→11:08)
[2019-04-01 10:08] LABS: ABSOLUTE EOSINOPHILS # (AUTO) 0.2 10^3/uL (0.0-0.6); ABSOLUTE LYMPHOCYTES (AUTO) 1.2 10^3/uL (0.5-4.7); ABSOLUTE MONOCYTES (AUTO) 0.2 10^3/uL (0.1-1.4); ABSOLUTE NEUT (AUTO) 2.9 10^3/uL (1.7-8.2); BASOPHILS % (AUTO) 0.5 % (0-2); EOSINOPHILS % (AUTO) 4.2 % (0-6); HEMATOCRIT 28.2 % (36.0-47.0); HEMOGLOBIN 9.5 g/dL (12.0-15.5); MEAN CORPUSCULAR HEMOGLOBIN 26.6 pg (27.0-33.4); MEAN CORPUSCULAR HGB CONC 33.7 g/dL (32.0-36.0); MEAN CORPUSCULAR VOLUME 79 fl (80-97); MONOCYTES % (AUTO) 4.7 % (3-13); PLATELET COUNT 127 10^3/uL (150-450); RED BLOOD COUNT 3.58 10^6/uL (3.72-5.28); RED CELL DISTRIBUTION WIDTH 14.5 % (11.5-14.0); SEGMENTED NEUTROPHILS % (AUTO) 63.6 % (42-78); TOTAL CELLS COUNTED % (AUTO) 100 %; WHITE BLOOD COUNT 4.5 10^3/uL (4.0-10.5)
[2019-04-01 10:22] LABS: ALANINE AMINOTRANSFERASE 22 U/L (9-52); ALBUMIN 3.2 g/dL (3.5-5.0); ALKALINE PHOSPHATASE 96 U/L (38-126); ANION GAP 10 (5-19); ASPARTATE AMINO TRANSFERASE 18 U/L (14-36); BILIRUBIN,DIRECT 0.2 mg/dL (0.0-0.4); BILIRUBIN,TOTAL 0.5 mg/dL (0.2-1.3); BLOOD UREA NITROGEN 15 mg/dL (7-20); CALCIUM 8.3 mg/dL (8.4-10.2); CARBON DIOXIDE 24 mmol/L (22-30); CHLORIDE 108 mmol/L (98-107); CREATINE KINASE 95 U/L (30-135); GLUCOSE 224 mg/dL (75-110); POTASSIUM 3.7 mmol/L (3.6-5.0); SODIUM 142.4 mmol/L (137-145); TOTAL PROTEIN 5.6 g/dL (6.3-8.2)
[2019-04-01 11:12] LABS: APPEARANCE,URINE SLIGHTLY-CLOUDY; BILIRUBIN,URINE SMALL (NEGATIVE); GLUCOSE, URINE NEGATIVE (NEGATIVE); KETONES,URINE TRACE mg/dL (NEGATIVE); LEUKOCYTE ESTERASE,URINE SMALL (NEGATIVE); NITRITE,URINE NEGATIVE (NEGATIVE); PROTEIN,URINE 30 mg/dL (NEGATIVE); URINE SPECIFIC GRAVITY 1.024
[2019-04-01 11:13] LABS: COLOR,URINE YELLOW
--- NOTE | 2019-04-01 11:18 | ER Document Report ---
ED General - General Chief Complaint: General Weakness Stated Complaint: WEAKNESS Time Seen by Provider: 04/01/19 10:16 Primary Care Provider: ZACK LINN FNP [Primary Care Provider] - Follow up as needed Notes: E Provider note: Patient is a 59-year-old female with a history of type 2 insulin-depedent diabeties, hypertension, restless leg syndrome who presents complaining of generalized weakness, and having one reading of low blood pressure this morning. Patient states that she was outside working when she started to feel weak. Patient states that she has had these symptoms multiple times over the course of 4 to 5 months. She has been evaluated here for similar symptoms and she is usually dehydrated. She was seen by cardiology on March 13 and was supposed to have an echocardiogram performed as well as a stress test, but could not have it done and needs to reschedule. Patient states that she does not have any electricity in her house which means she has no air-conditioning and she is constantly sweating. Patient states that she last urinated yesterday about 20 hours ago. She otherwise has not had any shortness of breath, dyspnea on exertion, or chest pain. She has not had any history of CVA, TIA, [place], PE, DVT. Denies any headache, fever, neck pain, changes in vision/speech/mentation/hea ring, URI, sore throat, chest pain, palpitations, syncope, cough, shortness of breath, wheeze, dyspnea, abdominal pain, nausea/vomiting/diarrhea, urinary retention, dysuria, hematuria, loss of control of bowel or bladder, numbness/tingling, muscle paralysis/weakness, or rash. MY HPI: Patient continues to deny any chest pain, shortness of breath. After fluid resuscitation in the emergency department patient states she overall feels a lot better. Upon my arrival to the room patient is eating candy. Her blood sugar was noted to be elevated at today's visits, states she will take her own insulin at this time. Patient states the reason she missed her echocardiac M and stress test this past week was due to not having transportation. Patient states as well as no air conditioning she also does not have electricity so she is unable to even have fans. According to EMS documentation patient had positive orthostatic vital change. Upon my examination patient is currently denying all complaints. Past medical history: Depression, anxiety, hypertension, GERD, anemia Medications: Cymbalta, gabapentin, NovoLog, lisinopril, propranolol, Seroquel, Requip Allergies: HCTZ Patient is denying taking an over abundance of her blood pressure medications. TRAVEL OUTSIDE OF THE [place] IN LAST 30 DAYS: No - Related Data Allergies/Adverse Reactions: hydrochlorothiazide [From Maxzide] Allergy (Verified 04/01/19 09:10) triamterene [From Maxzide] Allergy (Verified 04/01/19 09:10) Past Medical History - General Information source: Patient, Emergency Med Personnel - Social History Smoking Status: Current Every Day Smoker Chew tobacco use (# tins/day): No Frequency of alcohol use: None Drug Abuse: None Family History: Reviewed & Not Pertinent, DM, Malignancy - Mother had liver cancer, Other - Father of sudden arrhythmia, had cirrhosis and a liver transplant. Patient has suicidal ideation: No Patient has homicidal ideation: No - Past Medical History Cardiac Medical History: Reports: Hx Hypercholesterolemia - On no medication for same, Hx Hypertension Denies: Hx Congestive Heart Failure, Hx DVT, Hx Heart Attack, Hx Pulmonary Embolism, Hx Heart Murmur Pulmonary Medical History: Reports: Hx Bronchitis, Hx COPD, Hx Pneumonia, Hx Sleep Apnea Denies: Hx Respiratory Failure, Hx Tuberculosis Neurological Medical History: Denies: Hx Seizures Endocrine Medical History: Reports: Hx Diabetes Mellitus Type 1, Hx Diabetes Mellitus Type 2. Denies: Hx Hyperthyroidism, Hx Hypothyroidism Renal/ Medical History: Reports: Hx Renal Insufficiency - Her creatinines have remained under 1.0. Denies: Hx Peritoneal Dialysis GI Medical History: Reports: Hx Gastroesophageal Reflux Disease. Denies: Hx Cirrhosis, Hx Hepatitis, Hx Pancreatitis Musculoskeletal Medical History: Reports Hx Arthritis, Denies Hx Systemic Lupus Erythematosus Skin Medical History: Denies Hx Eczema, Denies Hx Psoriasis Psychiatric Medical History: Reports: Hx Anxiety, Hx Bipolar Disorder, Hx Depression Infectious Medical History: Denies: Hx Hepatitis Past Surgical History: Reports: Hx Section - x2, Hx Tubal Ligation, Other - Laser eye surgery 2. - Immunizations Immunizations up to date: Yes Hx Diphtheria, Pertussis, Tetanus Vaccination: Yes Hx Pneumococcal Vaccination: 02/26/12 Review of Systems - Review of Systems Constitutional: See HPI EENT: No symptoms reported Cardiovascular: denies: Chest pain, Syncope Respiratory: No symptoms reported Gastrointestinal: No symptoms reported Genitourinary: See HPI Female Genitourinary: No symptoms reported Musculoskeletal: No symptoms reported Skin: No symptoms reported Hematologic/Lymphatic: No symptoms reported Neurological/Psychological: See HPI Physical Exam - Vital signs Vitals: Temp Pulse Resp BP Pulse Ox 98.4 F 79 20 109/62 95 04/01/19 09:15 04/01/19 09:15 04/01/19 09:15 04/01/19 09:15 04/01/19 09:15 - Notes Notes: GENERAL: Alert, interacts well. No acute distress. Eating candy HEAD: Normocephalic, atraumatic. EYES: Pupils equal, round, and reactive to light. Extraocular movements intact. ENT: Oral mucosa moist, tongue midline. NECK: Full range of motion. Supple. Trachea midline. LUNGS: Clear to auscultation bilaterally, no wheezes, rales, or rhonchi. No respiratory distress. HEART: Regular rate and rhythm. No murmur ABDOMEN: Soft, non-tender. Non-distended. Bowel sounds present in all 4 quadrants. EXTREMITIES: Moves all 4 extremities spontaneously. No edema, normal radial and dorsalis pedis pulses bilaterally. No cyanosis. 5 out of 5 strength all 4 extremities. BACK: no cervical, thoracic, lumbar midline tenderness. No saddle anesthesia, normal distal neurovascular exam. NEUROLOGICAL: Alert and oriented x3. Normal speech. cranial nerves II through XII grossly intact PSYCH: Normal affect, normal mood. SKIN: Warm, dry, normal turgor. No rashes or lesions noted. Course - Re-evaluation Re-evalutation: 04/01/19 11:16 Orthostatic vitals performed in the emergency department or after a total of 2 L of normal saline solution. And she is no longer orthostatic positive. Patient's denying all complaints to me. States she feels a lot better now that she has been fluid resuscitated. Patient's blood sugar was noted to be elevated. Patient has her medications in the emergency department with her. Patient is wishing to take her own insulin dosing via sliding scale. I have attempted to page social work at this time for consult due to patient's living conditions. Due to it being a holiday there is no answer. I have placed patient's information in the consult for social work. Patient otherwise stable for discharge. 04/01/19 11:19 Patient's urine does show positive the BCs but also more squamous cells. This appears to be a dirty catch. Patient continues to deny any dysuria. Urine sent for culture, will not treat for urinary tract infection at this time. Awaiting cultures. 04/01/19 11:21 Patient denies any melena, dark stools, vomiting. Noted hemoglobin levels which in reviewing past charts appears to be chronic in nature. Patient states she does take iron replacements. - Vital Signs Vital signs: Temp Pulse Resp BP Pulse Ox 98.4 F 73 20 118/63 95 04/01/19 09:15 04/01/19 10:42 04/01/19 09:15 04/01/19 10:42 04/01/19 09:15 - Laboratory Result Diagrams: 04/01/19 09:37 04/01/19 09:37 Laboratory results interpreted by me: 04/01/19 04/01/19 04/01/19 09:37 09:37 10:55 RBC 3.58 L Hgb 9.5 L Hct 28.2 L MCV 79 L MCH 26.6 L RDW 14.5 H Plt Count 127 L Chloride 108 H Glucose 224 H Calcium 8.3 L Total Protein 5.6 L Albumin 3.2 L Urine Protein 30 H Urine Ketones TRACE H Urine Bilirubin SMALL H Urine Urobilinogen 4.0 H Ur Leukocyte Esterase SMALL H Discharge - Discharge Clinical Impression: Dehydration, Hyperglycemia Hypotension Qualifiers: Hypotension type: orthostatic hypotension Qualified Code(s): I95.1 - Orthostatic hypotension Condition: Stable Disposition: HOME, SELF-CARE Instructions: Dehydration ([facility]) Additional Instructions: As we discussed you have been seen and treated in the emergency department for dehydration. Please make sure you are drinking plenty of fluids, stay well-hy drated. Please also make sure you are keeping a close eye on your sugars. Your blood sugar is elevated at today's visit and in the emergency department you were eating candy. Please make sure you take your medications as prescribed and follow-up with your primary care provider in the next 24 to 48 hours. Please return to the emergency room for any other concerns. Referrals: ZACK LINN FNP [Primary Care Provider] - Follow up as needed
[2019-04-01 11:42] VITALS: BP 110/62
--- NOTE | 2019-04-01 14:08 | EKG REPORT ---
SEVERITY:- ABNORMAL ECG - SINUS RHYTHM BORDERLINE IVCD WITH LAD BORDERLINE T WAVE ABNORMALITIES : Confirmed by: Annita Cabral MD 01-Apr-2019 14:07:27
== END 2019-04-01 11:59 | disposition home or self-care (01) ==
LOC: ER 09:08
DX: E86.0 Dehydration (principal); I95.1 Orthostatic hypotension; E11.65 Type 2 diabetes mellitus with hyperglycemia; Z79.4 Long term (current) use of insulin; Z79.84 Long term (current) use of oral hypoglycemic drugs; D64.9 Anemia, unspecified; R53.1 Weakness; J44.9 Chronic obstructive pulmonary disease, unspecified; F31.9 Bipolar disorder, unspecified; I10 Essential (primary) hypertension; Z79.899 Other long term (current) drug therapy; F17.200 Nicotine dependence, unspecified, uncomplicated; Z59.1 Inadequate housing; Z88.8 Allergy status to other drugs, medicaments and biological substances
CPT/HCPCS: 93005; 99285; 96360; 36415; 87086; 82550; 85025; 80053; 81001; 84484; 93010; J7030

== ENCOUNTER 2019-04-03 17:21 | Emergency (ER) | payer MEDICAID ==
--- NOTE | 2019-04-03 18:43 | ER Document Report ---
ED Medical Screen (RME) - General Chief Complaint: Vomiting Stated Complaint: VOMITING Time Seen by Provider: 04/03/19 18:40 Primary Care Provider: ZACK LINN FNP [Primary Care Provider] - Follow up as needed Mode of Arrival: Wheelchair Information source: Patient Notes: Patient states they did not have any electricity in the event time and states that all day to keep cool. She also recently started vomiting with no nausea. She did not know she had a fever until she came in here to the emergency room and they checked her temperature temperature is 101.3.. Patient is mildly lethargic and keeping her eyes closed and her head down. She is able to answer questions appropriately family is with her. I have greeted and performed a rapid initial assessment of this patient. A comprehensive ED assessment and evaluation of the patient, analysis of test results and completion of medical decision making process will be conducted by an additional ED providers. Dictation of this chart was performed using voice recognition software; therefore, there may be some unintended grammatical errors. TRAVEL OUTSIDE OF THE [place] IN LAST 30 DAYS: No - Related Data Allergies/Adverse Reactions: hydrochlorothiazide [From Maxzide] Allergy (Verified 04/03/19 17:27) triamterene [From Maxzide] Allergy (Verified 04/03/19 17:27) Past Medical History - Social History Frequency of alcohol use: None Drug Abuse: None - Past Medical History Cardiac Medical History: Reports: Hx Hypercholesterolemia - On no medication for same, Hx Hypertension Denies: Hx Congestive Heart Failure, Hx DVT, Hx Heart Attack, Hx Pulmonary Embolism, Hx Heart Murmur Pulmonary Medical History: Reports: Hx Bronchitis, Hx COPD, Hx Pneumonia, Hx Sleep Apnea Denies: Hx Respiratory Failure, Hx Tuberculosis Neurological Medical History: Denies: Hx Seizures Endocrine Medical History: Reports: Hx Diabetes Mellitus Type 1, Hx Diabetes Mellitus Type 2. Denies: Hx Hyperthyroidism, Hx Hypothyroidism Renal/ Medical History: Reports: Hx Renal Insufficiency - Her creatinines have remained under 1.0. Denies: Hx Peritoneal Dialysis GI Medical History: Reports: Hx Gastroesophageal Reflux Disease. Denies: Hx Cirrhosis, Hx Hepatitis, Hx Pancreatitis Musculoskeltal Medical History: Reports Hx Arthritis, Denies Hx Systemic Lupus Erythematosus Skin Medical History: Denies Hx Eczema, Denies Hx Psoriasis Psychiatric Medical History: Reports: Hx Anxiety, Hx Bipolar Disorder, Hx Depression Infectious Medical History: Denies: Hx Hepatitis Past Surgical History: Reports: Hx Section - x2, Hx Tubal Ligation, Other - Laser eye surgery 2. - Immunizations Immunizations up to date: Yes Hx Diphtheria, Pertussis, Tetanus Vaccination: Yes History of Influenza Vaccine for 08/2017 - 01/2018 Season: Unknown Physical Exam - Vital signs Vitals: Temp Pulse Resp BP Pulse Ox 101.3 F H 89 16 108/58 L 93 04/03/19 18:14 04/03/19 18:14 04/03/19 18:14 04/03/19 18:14 04/03/19 18:14 Course - Vital Signs Vital signs: Temp Pulse Resp BP Pulse Ox 101.3 F H 89 16 108/58 L 93 04/03/19 18:14 04/03/19 18:14 04/03/19 18:14 04/03/19 18:14 04/03/19 18:14 Doctor's Discharge - Discharge Referrals: ZACK LINN FNP [Primary Care Provider] - Follow up as needed
--- NOTE | 2019-04-03 19:15 | RADIOLOGY REPORT (SQ) ---
EXAM DESCRIPTION: CHEST 2 VIEWS COMPLETED DATE/TIME: 04/03/2019 7:07 pm REASON FOR STUDY: Fever COMPARISON: 03/07/2019 EXAM PARAMETERS: NUMBER OF VIEWS: two views TECHNIQUE: Digital Frontal and Lateral radiographic views of the chest acquired. RADIATION DOSE: NA LIMITATIONS: none FINDINGS: LUNGS AND PLEURA: No opacities, masses or pneumothorax. No pleural effusion. MEDIASTINUM AND HILAR STRUCTURES: No masses or contour abnormalities. HEART AND VASCULAR STRUCTURES: Heart normal size. No evidence for failure. BONES: No acute findings. HARDWARE: None in the chest. OTHER: No other significant finding. IMPRESSION: NO ACUTE RADIOGRAPHIC FINDING IN THE CHEST. TECHNICAL DOCUMENTATION: JOB ID: [id number] [email or web address]- All Rights Reserved Reading location - IP/workstation name: [email or web address]
[2019-04-03] MEDS: NORMAL SALINE 1000 ML 1,000 ML IV PRN ×2 (19:18→23:35)
[2019-04-03 19:45] LABS: HEMATOCRIT 31.8 % (36.0-47.0); HEMOGLOBIN 10.8 g/dL (12.0-15.5); MEAN CORPUSCULAR HEMOGLOBIN 26.5 pg (27.0-33.4); MEAN CORPUSCULAR HGB CONC 33.8 g/dL (32.0-36.0); MEAN CORPUSCULAR VOLUME 78 fl (80-97); PLATELET COUNT 120 10^3/uL (150-450); RED BLOOD COUNT 4.06 10^6/uL (3.72-5.28); RED CELL DISTRIBUTION WIDTH 14.5 % (11.5-14.0); WHITE BLOOD COUNT 3.4 10^3/uL (4.0-10.5)
[2019-04-03 20:04] LABS: ALANINE AMINOTRANSFERASE 18 U/L (9-52); ALBUMIN 4.3 g/dL (3.5-5.0); ALKALINE PHOSPHATASE 102 U/L (38-126); ANION GAP 12 (5-19); ASPARTATE AMINO TRANSFERASE 27 U/L (14-36); BILIRUBIN,DIRECT 0.3 mg/dL (0.0-0.4); BILIRUBIN,TOTAL 1.1 mg/dL (0.2-1.3); BLOOD UREA NITROGEN 18 mg/dL (7-20); CALCIUM 9.4 mg/dL (8.4-10.2); CARBON DIOXIDE 25 mmol/L (22-30); CHLORIDE 100 mmol/L (98-107); GLUCOSE 298 mg/dL (75-110); LIPASE 133.8 U/L (23-300); POTASSIUM 4.4 mmol/L (3.6-5.0); SODIUM 137.1 mmol/L (137-145); TOTAL PROTEIN 7.3 g/dL (6.3-8.2)
[2019-04-03 20:10] LABS: ABSOLUTE LYMPHOCYTES# (MANUAL) 0.3 10^3/uL (0.5-4.7); BASOPHILS % (MANUAL) 0 % (0-2); EOSINOPHILS % (MANUAL) 3 % (0-6); LYMPHOCYTES % (MANUAL) 9 % (13-45); MONOCYTES % (MANUAL) 0 % (3-13); SEGMENTED NEUTROPHILS % (MAN) 88 % (42-78); TOTAL CELLS COUNTED 100
[2019-04-03 20:11] LABS: ANISOCYTOSIS SLIGHT; HYPOCHROMASIA SLIGHT; OVALOCYTES 1+; PLATELET COMMENT DECREASED; POIKILOCYTOSIS 1+
[2019-04-03] MEDS ORDERED: ONDANSETRON HCL INJ/PF 4 MG/2 ML SDV IV ONE (23:21)
--- NOTE | 2019-04-03 23:29 | ER Document Report ---
ED General - General Chief Complaint: Vomiting Stated Complaint: VOMITING Time Seen by Provider: 04/03/19 18:40 Primary Care Provider: ZACK LINN FNP [Primary Care Provider] - Follow up as needed Mode of Arrival: Wheelchair TRAVEL OUTSIDE OF THE [place] IN LAST 30 DAYS: No - HPI Notes: Patient is a 59-year-old female that presents to the emergency department for chief complaint of heat exhaustion and nausea. Patient states that she does not currently have any electricity. She was also standing outside for 45 minutes at the [employer] kitchen and became overheated. She states she then began to feel very nauseated. She has been trying to cool hers elf off with wet cloths but still felt very overheated. She has not had anything to eat today and has not taken her insulin. She has had 1-2 episodes of emesis. Patient denies any abdominal pain, diarrhea, cough, shortness of breath, dysuria and urinary frequency. She did receive fluids in triage and states she is feeling much better since being in our air conditioning. Past Medical History: Diabetes, anemia, hypertension Past Surgical History: Reviewed in chart Social History: Reviewed in chart Family History: Reviewed and noncontributory for presenting illness Allergies: Reviewed, see documented allergy list. REVIEW OF SYSTEMS: CONSTITUTIONAL : fever No chills No diaphoresis No recent illness EENT: No vision changes No congestion No sore throat CARDIOVASCULAR: No chest pain No palpitations RESPIRATORY: No shortness of breath No cough No difficulty breathing GASTROINTESTINAL: No abdominal pain nausea vomiting No diarrhea GENITOURINARY: No dysuria No hematuria No difficulty urinating MUSCULOSKELETAL: No back pain No leg pain No arm pain SKIN: No rashes No lesions LYMPHATIC: No swollen, enlarged glands. NEUROLOGICAL: No lightheadedness No headache No weakness No paresthesias PSYCHIATRIC: No anxiety No depression PHYSICAL EXAMINATION: Vital signs reviewed, nursing noted reviewed. GENERAL: Well-appearing, obese and in no acute distress. HEAD: Atraumatic, normocephalic. EYES: Eyes appear normal, extraocular movements intact, sclera anicteric, conjunctiva are normal. ENT: nares patent, oropharynx clear without exudates. Moist mucous membranes. NECK: Normal range of motion, supple without lymphadenopathy LUNGS: Breath sounds clear to auscultation bilaterally and equal. No wheezes rales or rhonchi. HEART: Regular rate and rhythm without murmurs ABDOMEN: Soft, nontender, normoactive bowel sounds. No rebound, guarding, or rigidity. No masses appreciated. EXTREMITIES: Nontender, good range of motion, no pitting or edema. NEUROLOGICAL: No focal neurological deficits. Moves all extremities spont aneously Motor and sensory grossly intact on exam. PSYCH: Normal mood, normal affect. SKIN: Warm, Dry, normal turgor, no rashes or lesions noted on exposed skin - Related Data Allergies/Adverse Reactions: hydrochlorothiazide [From Maxzide] Allergy (Verified 04/03/19 17:27) triamterene [From Maxzide] Allergy (Verified 04/03/19 17:27) Past Medical History - General Information source: Patient - Social History Smoking Status: Current Every Day Smoker Frequency of alcohol use: None Drug Abuse: None Family History: Reviewed & Not Pertinent, DM, Malignancy - Mother had liver cancer, Other - Father of sudden arrhythmia, had cirrhosis and a liver transplant. Patient has suicidal ideation: No Patient has homicidal ideation: No - Past Medical History Cardiac Medical History: Reports: Hx Hypercholesterolemia - On no medication for same, Hx Hypertension Denies: Hx Congestive Heart Failure, Hx DVT, Hx Heart Attack, Hx Pulmonary Embolism, Hx Heart Murmur Pulmonary Medical History: Reports: Hx Bronchitis, Hx COPD, Hx Pneumonia, Hx Sleep Apnea Denies: Hx Respiratory Failure, Hx Tuberculosis Neurological Medical History: Denies: Hx Seizures Endocrine Medical History: Reports: Hx Diabetes Mellitus Type 1, Hx Diabetes Mellitus Type 2. Denies: Hx Hyperthyroidism, Hx Hypothyroidism Renal/ Medical History: Reports: Hx Renal Insufficiency - Her creatinines have remained under 1.0. Denies: Hx Peritoneal Dialysis GI Medical History: Reports: Hx Gastroesophageal Reflux Disease. Denies: Hx Cirrhosis, Hx Hepatitis, Hx Pancreatitis Musculoskeletal Medical History: Reports Hx Arthritis, Denies Hx Systemic Lupus Erythematosus Skin Medical History: Denies Hx Eczema, Denies Hx Psoriasis Psychiatric Medical History: Reports: Hx Anxiety, Hx Bipolar Disorder, Hx Dep ression Infectious Medical History: Denies: Hx Hepatitis Past Surgical History: Reports: Hx Section - x2, Hx Tubal Ligation, Other - Laser eye surgery 2. - Immunizations Immunizations up to date: Yes Hx Diphtheria, Pertussis, Tetanus Vaccination: Yes Hx Pneumococcal Vaccination: 02/26/12 Physical Exam - Vital signs Vitals: Temp Pulse Resp BP Pulse Ox 101.3 F H 89 16 108/58 L 93 04/03/19 18:14 04/03/19 18:14 04/03/19 18:14 04/03/19 18:14 04/03/19 18:14 Course - Re-evaluation Re-evalutation: 04/03/19 23:44 Vitals reviewed. Nursing notes reviewed. Patient is hyperglycemic on lab work. She has received 2 L of IV fluid. After being in the air conditioning her temperature has decreased to 100.3. She is feeling better but still nauseated. She will be given Zofran for further symptomatic management. Her lab work shows no electrolyte derangement or renal insufficiency. She does have thrombocytopenia and anemia which appears to be chronic in nature. 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 She will be referred to Dr. My curiel for further hematology follow- up. Patient is otherwise stable and well-appearing. Abdominal exam is soft with no focal tenderness to suggest intra-abdominal process. Her symptoms are likely related to prolonged heat exposure. We did discuss ways of cooling the body including wetting her skin hand fanning as well as applying ice to neck and groin. Patient was counseled on hydration. She is stable at discharge. Laboratory 04/03/19 04/03/19 19:17 19:17 WBC 3.4 L RBC 4.06 Hgb 10.8 L Hct 31.8 L MCV 78 L MCH 26.5 L MCHC 33.8 RDW 14.5 H Plt Count 120 L Total Counted 100 Seg Neutrophils % Not Reportable Seg Neuts % (Manual) 88 H Lymphocytes % Not Reportable Lymphocytes % (Manual) 9 L Monocytes % Not Reportable Monocytes % (Manual) 0 L Eosinophils % Not Reportable Eosinophils % (Manual) 3 Basophils % Not Reportable Basophils % (Manual) 0 Absolute Neutrophils Not Reportable Abs Neuts (Manual) 3.0 Absolute Lymphocytes Not Reportable Abs Lymphs (Manual) 0.3 L Absolute Monocytes Not Reportable Abs Monocytes (Manual) 0.0 L Absolute Eosinophils Not Reportable Absolute Eos (Manual) 0.1 Absolute Basophils Not Reportable Abs Basophils (Manual) 0.0 Platelet Comment DECREASED Hypochromasia SLIGHT Poikilocytosis 1+ Anisocytosis SLIGHT Microcytosis SLIGHT Ovalocytes 1+ Sodium 137.1 Potassium 4.4 Chloride 100 Carbon Dioxide 25 Anion Gap 12 BUN 18 Creatinine 0.84 Est GFR ( Amer) > 60 Est GFR (Non-Af Amer) > 60 Glucose 298 H Calcium 9.4 Total Bilirubin 1.1 Direct Bilirubin 0.3 Neonat Total Bilirubin Not Reportable Neonat Direct Bilirubin Not Reportable Neonat Indirect Bili Not Reportable AST 27 ALT 18 Alkaline Phosphatase 102 Total Protein 7.3 Albumin 4.3 Lipase 133.8 Chest X-Ray 04/03/19 18:40 IMPRESSION: NO ACUTE RADIOGRAPHIC FINDING IN THE CHEST. - Vital Signs Vital signs: Temp Pulse Resp BP Pulse Ox 101.3 F H 89 16 108/58 L 93 04/03/19 18:14 04/03/19 18:14 04/03/19 18:14 04/03/19 18:14 04/03/19 18:14 - Laboratory Result Diagrams: 04/03/19 19:17 04/03/19 19:17 Laboratory results interpreted by me: 04/03/19 04/03/19 19:17 19:17 WBC 3.4 L Hgb 10.8 L Hct 31.8 L MCV 78 L MCH 26.5 L RDW 14.5 H Plt Count 120 L Seg Neuts % (Manual) 88 H Lymphocytes % (Manual) 9 L Monocytes % (Manual) 0 L Abs Lymphs (Manual) 0.3 L Abs Monocytes (Manual) 0.0 L Glucose 298 H Discharge - Discharge Clinical Impression: Thrombocytopenia Vomiting Qualifiers: Vomiting type: unspecified Vomiting Intractability: non-intractable Nausea p resence: with nausea Qualified Code(s): R11.2 - Nausea with vomiting, unspecified Fever Qualifiers: Fever type: unspecified Qualified Code(s): R50.9 - Fever, unspecified Condition: Stable Disposition: HOME, SELF-CARE Instructions: Heat Exhaustion ([facility]), Thrombocytopenia ([facility]), Anemia ([facility]) Additional Instructions: Please return to the emergency department if you have any worsening, or concern of your symptoms. Please return to the emergency department if you develop chest pain, difficulty breathing, severe abdominal pain, or ongoing vomiting. Please follow-up with your primary care physician in 2-3 days and any other recommended physicians. If prescribed, take all medications as directed. If you have any questions or concerns do not hesitate to return the emergency de partment for evaluation. You are anemic and your platelet count is low today. This is something that has been ongoing for you on previous visits. I have provided Dr. Gonazlez information for hematology follow-up. Prescriptions: Ondansetron [Zofran Odt 4 mg Tablet] 1 tab PO Q4H PRN #15 tab.rapdis PRN Reason: For Nausea/Vomiting Referrals: ZACK LINN FNP [Primary Care Provider] - Follow up as needed KAROLYN GONZALEZ MD [ACTIVE STAFF] - Follow up as needed
[2019-04-04 00:07] VITALS: BP 126/68
== END 2019-04-04 00:07 | disposition home or self-care (01) ==
LOC: ER 17:21
DX: R11.2 Nausea with vomiting, unspecified (principal); D69.6 Thrombocytopenia, unspecified; D64.9 Anemia, unspecified; R50.9 Fever, unspecified; I10 Essential (primary) hypertension; E11.65 Type 2 diabetes mellitus with hyperglycemia; F17.200 Nicotine dependence, unspecified, uncomplicated; J44.9 Chronic obstructive pulmonary disease, unspecified; Z59.1 Inadequate housing; Z79.4 Long term (current) use of insulin; Z88.8 Allergy status to other drugs, medicaments and biological substances
CPT/HCPCS: 99283; 96361; 96374; 36415; 83690; 85025; 80053; 71046; J2405; J7030

== ENCOUNTER 2019-04-22 16:58 | Emergency (ER) | payer MEDICAID | END 2019-04-22 18:23 | disposition left against medical advice (07) | LOC: ER 16:58 | DX: R11.10 Vomiting, unspecified (principal); I95.9 Hypotension, unspecified; Z53.21 Procedure and treatment not carried out due to patient leaving prior to being seen by health care provider ==

== ENCOUNTER 2019-07-16 22:25 | Emergency (ER) | payer MEDICAID ==
[2019-07-16] MEDS ORDERED: METOCLOPRAMIDE HCL INJ/PF 10 MG/2 ML SDV IV ONE (22:37)
[2019-07-16] MEDS ORDERED: NORMAL SALINE 1000 ML 1,000 ML IV ONE (22:37)
[2019-07-16 23:27] LABS: ABSOLUTE BASOPHILS # (AUTO) 0.1 10^3/uL (0.0-0.2); ABSOLUTE EOSINOPHILS # (AUTO) 0.2 10^3/uL (0.0-0.6); ABSOLUTE LYMPHOCYTES (AUTO) 2.5 10^3/uL (0.5-4.7); ABSOLUTE MONOCYTES (AUTO) 0.5 10^3/uL (0.1-1.4); ABSOLUTE NEUT (AUTO) 3.3 10^3/uL (1.7-8.2); BASOPHILS % (AUTO) 0.8 % (0-2); EOSINOPHILS % (AUTO) 3.1 % (0-6); HEMATOCRIT 28.3 % (36.0-47.0); HEMOGLOBIN 9.7 g/dL (12.0-15.5); LYMPHOCYTES % (AUTO) 38.7 % (13-45); MEAN CORPUSCULAR HGB CONC 34.1 g/dL (32.0-36.0); MEAN CORPUSCULAR VOLUME 76 fl (80-97); MONOCYTES % (AUTO) 7.2 % (3-13); PLATELET COUNT 118 10^3/uL (150-450); RED BLOOD COUNT 3.72 10^6/uL (3.72-5.28); RED CELL DISTRIBUTION WIDTH 15.6 % (11.5-14.0); SEGMENTED NEUTROPHILS % (AUTO) 50.2 % (42-78); TOTAL CELLS COUNTED % (AUTO) 100 %; WHITE BLOOD COUNT 6.5 10^3/uL (4.0-10.5)
[2019-07-16 23:45] LABS: ANION GAP 7 (5-19); BLOOD UREA NITROGEN 9 mg/dL (7-20); CALCIUM 8.8 mg/dL (8.4-10.2); CARBON DIOXIDE 28 mmol/L (22-30); CHLORIDE 101 mmol/L (98-107); GLUCOSE 109 mg/dL (75-110); POTASSIUM 3.4 mmol/L (3.6-5.0)
--- NOTE | 2019-07-16 23:47 | ER Document Report ---
ED General - General Chief Complaint: Dizziness Stated Complaint: DIZZINESS Time Seen by Provider: 07/16/19 22:37 Primary Care Provider: ZACK LINN FNP [NURSE PRACTITIONER] - Follow up as needed Notes: 39-year-old lady with a history of overmedication for hypertension, resulting hypotension, as well as diabetes poorly controlled presents with dizziness and nausea all day today. Polydipsia polyuria present. Symptoms are moderate, symptoms are increasing. Denies abdominal pain or headache. Denies fever c hills. No recent changes to insulin or antihypertensives. Decreased oral intake today. TRAVEL OUTSIDE OF THE [place] IN LAST 30 DAYS: No - Related Data Allergies/Adverse Reactions: hydrochlorothiazide [From Maxzide] Allergy (Verified 04/03/19 17:27) triamterene [From Maxzide] Allergy (Verified 04/03/19 17:27) Past Medical History - Social History Smoking Status: Unknown if Ever Smoked Family History: Reviewed & Not Pertinent, DM, Malignancy - Mother had liver cancer, Other - Father of sudden arrhythmia, had cirrhosis and a liver transplant. - Past Medical History Cardiac Medical History: Reports: Hx Hypercholesterolemia - On no medication for same, Hx Hypertension Denies: Hx Congestive Heart Failure, Hx DVT, Hx Heart Attack, Hx Pulmonary Embolism, Hx Heart Murmur Pulmonary Medical History: Reports: Hx Bronchitis, Hx COPD, Hx Pneumonia, Hx Sleep Apnea Denies: Hx Respiratory Failure, Hx Tuberculosis Neurological Medical History: Denies: Hx Seizures Endocrine Medical History: Reports: Hx Diabetes Mellitus Type 1, Hx Diabetes Mellitus Type 2. Denies: Hx Hyperthyroidism, Hx Hypothyroidism Renal/ Medical History: Reports: Hx Renal Insufficiency - Her creatinines have remained under 1.0. Denies: Hx Peritoneal Dialysis GI Medical History: Reports: Hx Gastroesophageal Reflux Disease. Denies: Hx Cirrhosis, Hx Hepatitis, Hx Pancreatitis Musculoskeletal Medical History: Reports Hx Arthritis, Denies Hx Systemic Lupus Erythematosus Skin Medical History: Denies Hx Eczema, Denies Hx Psoriasis Psychiatric Medical History: Reports: Hx Anxiety, Hx Bipolar Disorder, Hx Dep ression Infectious Medical History: Denies: Hx Hepatitis Past Surgical History: Reports: Hx Section - x2, Hx Tubal Ligation, Other - Laser eye surgery 2. - Immunizations Immunizations up to date: Yes Hx Diphtheria, Pertussis, Tetanus Vaccination: Yes Hx Pneumococcal Vaccination: 02/26/12 Review of Systems - Review of Systems Notes: REVIEW OF SYSTEMS GEN: Denies fever, chills, weight loss polydipsia polyuria ENT: Denies sore throat, nasal discharge, ear pain EYES: Denies blurry vision, eye pain, discharge CV: Denies chest pain, palpitations, edema RESP: Denies cough, shortness of breath, wheezing GI: Denies abdominal pain, nausea, vomiting, diarrhea MSK: Denies joint pain/swelling, edema, SKIN: Denies rash, skin lesions LYMPH: Denies swollen glands/lymph nodes NEURO: Dizziness. Denies headache, focal weakness or numbness, dizziness PSYCH: Denies depression, suicidal or homicidal ideation PHYSICAL EXAMINATION General: Likely ill-appearing Head: Atraumatic, normocephalic ENT: Mouth normal, oropharynx moist, no exudates or tonsillar enlargement Eyes: Conjunctiva normal, pupils equal, lids normal Neck: No JVD, supple, no guarding CVS: Normal rate, regular rhythm, no murmurs Resp: No resp distress, equal and normal breath sounds bilaterally GI: Nondistended, soft, no tenderness to palpation, no rebound or guarding Ext: No deformities, no edema, normal range of motion in upper and lower ext Back: No CVA or midline TTP Skin: No rash, warm, decreased turgor Lymphatic: No lymphadeopathy noted Neuro: Awake, alert. Face symmetric. GCS 15. Physical Exam - Vital signs Vitals: Temp 97.9 F 07/16/19 22:36 Course - Re-evaluation Re-evalutation: 07/16/19 23:47 Poorly controlled diabetic with a history of hypertension presents with hypotension prehospital to 70, up to 90 with prehospital fluids. Normoglycemic. Nonfocal neurologic exam. Likely dehydration versus DKA. We will continue to hydrate, check CBC and basic metabolic panel. Blood sugar is normal on ED arrival. 07/17/19 01:30 She is pressures come up with IV fluids. Her labs are essentially unremarkable. Her urine does show some leukocyte esterase but is contaminated and she has no fever or CVA tenderness so I do not think that this reflects urosepsis or requires treatment. She had multiple medical presentations in the past. She was able to stand up and walk to the bathroom unassisted without dizziness and is stable for discharge home. I asked her to hold off on her blood pressure medicine until she sees her primary care. I have discussed with the patient there likely diagnosis, aftercare plan, follow-up plans and my usual and cust omary return precautions. They verbalized understanding of this. - Vital Signs Vital signs: Temp Pulse Resp BP Pulse Ox 97.9 F 14 112/78 99 07/16/19 22:36 07/17/19 01:05 07/17/19 01:05 07/17/19 01:05 - Laboratory Result Diagrams: 07/16/19 23:14 07/16/19 23:14 Laboratory results interpreted by me: 07/16/19 07/16/19 07/16/19 22:35 23:14 23:14 Hgb 9.7 L Hct 28.3 L MCV 76 L MCH 26.0 L RDW 15.6 H Plt Count 118 L Sodium 136.2 L Potassium 3.4 L POC Glucose 134 H Urine Protein Urine Glucose (UA) Urine Blood Ur Leukocyte Esterase 07/17/19 00:20 Hgb Hct MCV MCH RDW Plt Count Sodium Potassium POC Glucose Urine Protein 30 H Urine Glucose (UA) >=500 H Urine Blood MODERATE H Ur Leukocyte Esterase LARGE H Discharge - Discharge Clinical Impression: Dizziness Hypotension Qualifiers: Hypotension type: unspecified hypotension type Qualified Code(s): I95.9 - Hypotension, unspecified Condition: Good Disposition: HOME, SELF-CARE Additional Instructions: Please do not take any of your blood pressure medicines until you can see your regular doctor even if it is a week from now. Please keep well-hydrated. Referrals: ZACK LINN FNP [NURSE PRACTITIONER] - Follow up as needed
[2019-07-17 00:48] LABS: APPEARANCE,URINE CLOUDY; BILIRUBIN,URINE NEGATIVE (NEGATIVE); COLOR,URINE YELLOW; GLUCOSE, URINE >=500 mg/dL (NEGATIVE); KETONES,URINE NEGATIVE (NEGATIVE); LEUKOCYTE ESTERASE,URINE LARGE (NEGATIVE); NITRITE,URINE NEGATIVE (NEGATIVE); PROTEIN,URINE 30 mg/dL (NEGATIVE); URINE SPECIFIC GRAVITY 1.018; UROBILINOGEN,URINE NEGATIVE mg/dL (<2.0)
[2019-07-17 01:12] VITALS: BP 112/78
--- NOTE | 2019-07-17 22:21 | EKG REPORT ---
SEVERITY:- ABNORMAL ECG - SINUS RHYTHM BORDERLINE IVCD WITH LAD PROBABLE LATERAL INFARCT, OLD NONSPECIFIC T ABNORMALITIES, INFERIOR LEADS : Confirmed by: Annita Cabral MD 17-Jul-2019 22:21:03
== END 2019-07-17 01:30 | disposition home or self-care (01) ==
LOC: ER 22:25
DX: I95.9 Hypotension, unspecified (principal); R42 Dizziness and giddiness; R11.0 Nausea; J44.9 Chronic obstructive pulmonary disease, unspecified; I10 Essential (primary) hypertension; E11.9 Type 2 diabetes mellitus without complications; Z79.899 Other long term (current) drug therapy; Z79.4 Long term (current) use of insulin; Z88.8 Allergy status to other drugs, medicaments and biological substances
CPT/HCPCS: 93005; 36415; 82962; 85025; 80048; 81001; 93010; J2765; J7030; 96361; 96374; 99284

== ENCOUNTER 2019-10-02 17:34 | Emergency (ER) | payer MEDICAID ==
[2019-10-02] MEDS ORDERED: NORMAL SALINE 1000 ML 1,000 ML IV ONE (17:53)
[2019-10-02 18:19] LABS: ABSOLUTE EOSINOPHILS # (AUTO) 0.1 10^3/uL (0.0-0.6); ABSOLUTE MONOCYTES (AUTO) 0.2 10^3/uL (0.1-1.4); MEAN CORPUSCULAR HEMOGLOBIN 26.1 pg (27.0-33.4); MEAN CORPUSCULAR HGB CONC 33.4 g/dL (32.0-36.0); MEAN CORPUSCULAR VOLUME 78 fl (80-97); TOTAL CELLS COUNTED % (AUTO) 100 %
[2019-10-02 18:23] LABS: VENOUS BLOOD HCO3 25.5 mmol/L (20-32); VENOUS BLOOD PCO2 50.4 mmHg (35-63); VENOUS BLOOD PH 7.32 (7.30-7.42)
[2019-10-02 18:27] LABS: ABSOLUTE LYMPHOCYTES (AUTO) 0.9 10^3/uL (0.5-4.7); ABSOLUTE NEUT (AUTO) 1.8 10^3/uL (1.7-8.2); BASOPHILS % (AUTO) 0.8 % (0-2); EOSINOPHILS % (AUTO) 2.5 % (0-6); HEMATOCRIT 32.6 % (36.0-47.0); HEMOGLOBIN 10.9 g/dL (12.0-15.5); LYMPHOCYTES % (AUTO) 30.7 % (13-45); MONOCYTES % (AUTO) 6.1 % (3-13); PLATELET COUNT 117 10^3/uL (150-450); RED BLOOD COUNT 4.17 10^6/uL (3.72-5.28); RED CELL DISTRIBUTION WIDTH 14.8 % (11.5-14.0); SEGMENTED NEUTROPHILS % (AUTO) 59.9 % (42-78)
[2019-10-02 18:35] LABS: ALBUMIN 4.3 g/dL (3.5-5.0); ALKALINE PHOSPHATASE 191 U/L (38-126); ANION GAP 13 (5-19); ASPARTATE AMINO TRANSFERASE 33 U/L (14-36); BILIRUBIN,DIRECT 0.2 mg/dL (0.0-0.4); BILIRUBIN,TOTAL 0.9 mg/dL (0.2-1.3); BLOOD UREA NITROGEN 9 mg/dL (7-20); CALCIUM 9.6 mg/dL (8.4-10.2); CARBON DIOXIDE 29 mmol/L (22-30); CHLORIDE 95 mmol/L (98-107); CREATINE KINASE 181 U/L (30-135); TOTAL PROTEIN 7.2 g/dL (6.3-8.2)
[2019-10-02 18:46] LABS: GLUCOSE 511 mg/dL (75-110)
[2019-10-02] MEDS ORDERED: CLONIDINE HCL 0.1 MG TABLET PO ONE (18:54)
[2019-10-02] MEDS ORDERED: INSULIN REG, HUMAN 100 UNIT/ML 3 ML VIAL (PYX) IV ONE (18:54)
[2019-10-02 18:59] LABS: APPEARANCE,URINE CLEAR; BILIRUBIN,URINE NEGATIVE (NEGATIVE); COLOR,URINE STRAW; GLUCOSE, URINE >=500 mg/dL (NEGATIVE); KETONES,URINE NEGATIVE (NEGATIVE); LEUKOCYTE ESTERASE,URINE NEGATIVE (NEGATIVE); NITRITE,URINE NEGATIVE (NEGATIVE); PROTEIN,URINE NEGATIVE (NEGATIVE); URINE SPECIFIC GRAVITY 1.024
--- NOTE | 2019-10-02 19:01 | ER Document Report ---
ED General - General Chief Complaint: High Blood Sugar Stated Complaint: BLOOD SUGAR PROBLEMS Primary Care Provider: MELISSA WEST PA-C [Primary Care Provider] - Follow up as needed TRAVEL OUTSIDE OF THE [place] IN LAST 30 DAYS: No - HPI Notes: Patient is a 59-year-old female with a history of hypertension and insulin- dependent diabetes who presents complaining of a blister to her left fifth toe that is becoming a little red as well as having elevated blood glucose and her glucometer battery being . Patient states that she has not been taking her insulin because she cannot check her sugars. She has been able to eat and drink without difficulty. She is urinating normally although more frequently and having normal bowel movements. She otherwise feels well. Pt does have neuropathy to her feet b/l. She has no other concerns or complaints. Denies any headache, fever, neck pain, URI, sore throat, chest pain, palpitations, syncope, cough, shortness of breath, wheeze, dyspnea, abdominal pain, nausea/vomiting/diarrhea, urinary retention, dysuria, hematuria, or rash. - Related Data Allergies/Adverse Reactions: hydrochlorothiazide [From Maxzide] Allergy (Verified 04/03/19 17:27) triamterene [From Maxzide] Allergy (Verified 04/03/19 17:27) Home Medications: apirin 81mg. atorvastatin 40mg. [id number]. ropinirole hcl 3mg. duloxetine hcl dr 60mg. bupropion hcl xl 300mg. quetiapine fumarate 200mg. novology 70/30 novolog Past Medical History - Social History Smoking Status: Former Smoker Frequency of alcohol use: None Family History: Reviewed & Not Pertinent, DM, Malignancy - Mother had liver cancer, Other - Father of sudden arrhythmia, had cirrhosis and a liver transplant. Patient has suicidal ideation: No Patient has homicidal ideation: No - Past Medical History Cardiac Medical History: Reports: Hx Hypercholesterolemia - On no medication for same, Hx Hypertension Denies: Hx Congestive Heart Failure, Hx DVT, Hx Heart Attack, Hx Pulmonary Embolism, Hx Heart Murmur Pulmonary Medical History: Reports: Hx Bronchitis, Hx COPD, Hx Pneumonia, Hx Sleep Apnea Denies: Hx Respiratory Failure, Hx Tuberculosis Neurological Medical History: Denies: Hx Seizures Endocrine Medical History: Reports: Hx Diabetes Mellitus Type 1, Hx Diabetes Mellitus Type 2. Denies: Hx Hyperthyroidism, Hx Hypothyroidism Renal/ Medical History: Reports: Hx Renal Insufficiency - Her creatinines have remained under 1.0. Denies: Hx Peritoneal Dialysis GI Medical History: Reports: Hx Gastroesophageal Reflux Disease. Denies: Hx Cirrhosis, Hx Hepatitis, Hx Pancreatitis Musculoskeletal Medical History: Reports Hx Arthritis, Denies Hx Systemic Lupus Erythematosus Skin Medical History: Denies Hx Eczema, Denies Hx Psoriasis Psychiatric Medical History: Reports: Hx Anxiety, Hx Bipolar Disorder, Hx Dep ression Infectious Medical History: Denies: Hx Hepatitis Past Surgical History: Reports: Hx Section - x2, Hx Tubal Ligation, Other - Laser eye surgery 2. - Immunizations Immunizations up to date: Yes Hx Diphtheria, Pertussis, Tetanus Vaccination: Yes Hx Pneumococcal Vaccination: 02/26/12 Review of Systems - Review of Systems -: Yes All other systems reviewed and negative Physical Exam - Vital signs Vitals: Resp Pulse Ox 12 98 10/02/19 17:43 10/02/19 17:43 - Notes Notes: PHYSICAL EXAMINATION: GENERAL: Well-appearing, well-nourished and in no acute distress. HEAD: Atraumatic, normocephalic. EYES: Pupils equal round and reactive to light, extraocular movements intact, sclera anicteric, conjunctiva are normal. ENT: Nares patent and without discharge. oropharynx clear without exudates. No tonsilar hypertrophy or erythema. Moist mucous membranes. NECK: Normal range of motion, supple without lymphadenopathy LUNGS: Breath sounds clear to auscultation bilaterally and equal. No wheezes rales or rhonchi. HEART: Regular rate and rhythm without murmurs, rubs, gallops. ABDOMEN: Soft, nontender, nondistended abdomen. No guarding, no rebound. Normal bowel sounds present. No CVA tenderness bilaterally. Musculoskeletal: FROM to passive/active. Strength 5+/5. Extremities: No cyanosis, clubbing, or edema b/l. Peripheral pulses 2+. Cap illary refill less than 3 seconds. NEUROLOGICAL: Cranial nerves grossly intact. Normal speech, normal gait. Normal sensory, motor exams PSYCH: Normal mood, normal affect. SKIN: Left 5th toe: there is what appears to be a blister that is now mildly erythemic w/o induration, abscess, necrosis, purulence, or streaks. The area is rather small about 0.5-0.75cm. Course - Re-evaluation Re-evalutation: 10/02/19 19:12 Pt does have elevated glucose, normal K+. We will give insulin and continue fluids. Her lactic is 2.3, but I do not believe patient is septic. She is afebrile, normal vitals aside from elevated BP, and no WBC. Pt will be getting an antibiotic for her toe, but that is very mild cellulitis if anything local 0.5-0.75cm on the 5th toe w/o abscess/streaks. One of our secretaries went to the store for the patient to get her a battery for her glucometer. We will hydrate, provide meds, accucheck sugar again, and plan to discharge thereafter. 10/02/19 20:02 Patient is an afebrile, well-hydrated, 59-year-old female who presents with a very mild cellulitis of left fifth toe without evidence of necrosis on exam as well as elevated glucose due to patient not taking her insulin. Vitals are acceptable without significant tachycardia, tachypnea, or hypoxia. PE is otherwise unremarkable. Patient is nontoxic-appearing and is tolerating p.o. without difficulty. Labs are acceptable with respect to the elevated glucose that is currently being worked on at this time. Low suspicion for any DKA, HHS, acute abdomen, sepsis, meningitis, severe dehydration, respiratory compromise, or other systemic emergent condition at this time. Patient is aware that condition can change from initial presentation and she needs to monitor symptoms closely and seek medical attention with any acute changes. Patient has been given a new battery for her glucometer that is now operating. She will be sent home on cleocin as well. The tentative plan will be for patient to be discharged once the glucose is in acceptable range. She is to schedule an appointment with her family provider after the weekend. Return to the ED with any other worsening/concerning symptoms. Patient is in agreement. Transfer of care to Davina Arizmendi NP for any changes and to recheck glucose. - Vital Signs Vital signs: Temp Pulse Resp BP Pulse Ox 98.4 F 15 175/94 H 98 10/02/19 18:57 10/02/19 18:52 10/02/19 18:53 10/02/19 18:53 - Laboratory Result Diagrams: 10/02/19 18:00 10/02/19 18:00 Laboratory results interpreted by me: 10/02/19 10/02/19 10/02/19 18:00 18:00 18:00 WBC 3.0 L Hgb 10.9 L Hct 32.6 L MCV 78 L MCH 26.1 L RDW 14.8 H Plt Count 117 L Chloride 95 L Glucose 511 H* Lactic Acid 2.3 H Alkaline Phosphatase 191 H Creatine Kinase 181 H Urine Glucose (UA) Urine Blood Urine Urobilinogen 10/02/19 18:20 WBC Hgb Hct MCV MCH RDW Plt Count Chloride Glucose Lactic Acid Alkaline Phosphatase Creatine Kinase Urine Glucose (UA) >=500 H Urine Blood MODERATE H Urine Urobilinogen 2.0 H Discharge - Discharge Clinical Impression: Cellulitis of toe of left foot, Elevated glucose Condition: Stable Disposition: HOME, SELF-CARE Additional Instructions: Keep the skin clean Wash with soap and water Tylenol/ibuprofen if needed Triple antibiotic ointment daily Epsom salt soaks Take medication as directed Monitor for any worsening symptoms Monitor blood glucose and blood pressure and take medications as directed Recheck with your PCM in 3-5 days Return to the ED with any worsening symptoms and/or development of fever, headache, chest pain, palpitations, syncope, shortness of breath, trouble breathing, abdominal pain, n/v/d, abscess, purulent discharge, red streaks, worsening swelling, or other worsening symptoms that are concerning to you. Prescriptions: Clindamycin HCl [Cleocin 300 mg Capsule] 300 mg PO TID #30 capsule Forms: Elevated Blood Pressure Referrals: MELISSA WEST PA-C [Primary Care Provider] - Follow up in 3-5 days
[2019-10-02] MEDS ORDERED: NORMAL SALINE 500 ML IV ONE (19:05)
[2019-10-02 20:22] VITALS: BP 138/94
--- NOTE | 2019-10-02 23:42 | EKG REPORT ---
SEVERITY:- ABNORMAL ECG - SINUS RHYTHM LEFT ANTERIOR FASCICULAR BLOCK PROBABLE LVH WITH SECONDARY REPOL ABNRM : Confirmed by: Holli Interiano 02-Oct-2019 23:40:41
== END 2019-10-02 20:25 | disposition home or self-care (01) ==
LOC: ER 17:34
DX: E11.65 Type 2 diabetes mellitus with hyperglycemia (principal); T38.3X6A Underdosing of insulin and oral hypoglycemic [antidiabetic] drugs, initial encounter; Z91.128 Patient's intentional underdosing of medication regimen for other reason; Z91.14 Patient's other noncompliance with medication regimen; L03.032 Cellulitis of left toe; E11.40 Type 2 diabetes mellitus with diabetic neuropathy, unspecified; E78.00 Pure hypercholesterolemia, unspecified; I10 Essential (primary) hypertension; J44.9 Chronic obstructive pulmonary disease, unspecified; F31.9 Bipolar disorder, unspecified; Z79.82 Long term (current) use of aspirin; Z79.899 Other long term (current) drug therapy; Z88.8 Allergy status to other drugs, medicaments and biological substances; Z87.891 Personal history of nicotine dependence
CPT/HCPCS: 93005; 99285; 36415; 82962; 82550; 83605; 85025; 80053; 81001; 82803; 93010; J3490; J1815; J7030; J7040

== ENCOUNTER 2019-10-31 03:23 | Emergency (ER) | payer MEDICAID ==
--- NOTE | 2019-10-31 03:54 | ER Document Report ---
ED General - General Chief Complaint: Fall Injury Stated Complaint: FALL Time Seen by Provider: 10/31/19 03:31 Primary Care Provider: MELISSA WEST PA-C [Primary Care Provider] - Follow up as needed TRAVEL OUTSIDE OF THE [place] IN LAST 30 DAYS: No - HPI Notes: This is a 59-year-old female who presents today with a complaint of a fall. Patient was visiting her here in the emergency department when she slipped and fell, hurting her left wrist. She states that she hit her head and her head hurts. There was no loss of consciousness. Patient notes that she fell recently and hurt her left wrist she thinks she reinjured it. She denies any neck pain. She denies any other injuries. Describes her symptoms as moderate. - Related Data Allergies/Adverse Reactions: hydrochlorothiazide [From Maxzide] Allergy (Verified 10/31/19 03:35) triamterene [From Maxzide] Allergy (Verified 10/31/19 03:35) Home Medications: insulin, propanolol 120 mg, requip, seroquil, cymbalta, wellbutrin, klonapin PRN, rexuelti?-pt unsure, flexaril PRN, metformin, Past Medical History - Social History Smoking Status: Current Every Day Smoker Chew tobacco use (# tins/day): No Frequency of alcohol use: None Drug Abuse: None Family History: Reviewed & Not Pertinent, DM, Malignancy - Mother had liver cancer, Other - Father of sudden arrhythmia, had cirrhosis and a liver transplant. Patient has suicidal ideation: No Patient has homicidal ideation: No - Past Medical History Cardiac Medical History: Reports: Hx Hypercholesterolemia - On no medication for same, Hx Hypertension Denies: Hx Congestive Heart Failure, Hx DVT, Hx Heart Attack, Hx Pulmonary Embolism, Hx Heart Murmur Pulmonary Medical History: Reports: Hx Bronchitis, Hx COPD, Hx Pneumonia, Hx Sleep Apnea Denies: Hx Respiratory Failure, Hx Tuberculosis Neurological Medical History: Denies: Hx Seizures Endocrine Medical History: Reports: Hx Diabetes Mellitus Type 1, Hx Diabetes Mellitus Type 2. Denies: Hx Hyperthyroidism, Hx Hypothyroidism Renal/ Medical History: Reports: Hx Renal Insufficiency - Her creatinines have remained under 1.0. Denies: Hx Peritoneal Dialysis GI Medical History: Reports: Hx Gastroesophageal Reflux Disease. Denies: Hx Cirrhosis, Hx Hepatitis, Hx Pancreatitis Musculoskeletal Medical History: Reports Hx Arthritis, Denies Hx Systemic Lupus Erythematosus Skin Medical History: Denies Hx Eczema, Denies Hx Psoriasis Psychiatric Medical History: Reports: Hx Anxiety, Hx Bipolar Disorder, Hx Depression Infectious Medical History: Denies: Hx Hepatitis Past Surgical History: Reports: Hx Section - x2, Hx Tubal Ligation, Other - Laser eye surgery 2. - Immunizations Immunizations up to date: Yes Hx Diphtheria, Pertussis, Tetanus Vaccination: Yes Hx Pneumococcal Vaccination: 02/26/12 Review of Systems - Review of Systems Cardiovascular: denies: Chest pain Respiratory: denies: Cough Gastrointestinal: denies: Abdominal pain Genitourinary: denies: Flank pain Musculoskeletal: Other - Left wrist injury. Neurological/Psychological: Headaches -: Yes All other systems reviewed and negative Physical Exam - Vital signs Vitals: Temp Pulse Resp BP Pulse Ox 97.4 F 76 18 178/92 H 97 10/31/19 03:30 10/31/19 03:30 10/31/19 03:30 10/31/19 03:30 10/31/19 03:30 - General General appearance: Appears well, Alert - HEENT Head: Normocephalic, Atraumatic Eyes: Normal Pupils: PERRL Neck: Other - There is no midline tenderness or step-offs. - Respiratory Respiratory status: No respiratory distress Chest status: Nontender Breath sounds: Normal Chest palpation: Normal - Cardiovascular Rhythm: Regular Heart sounds: Normal auscultation Murmur: No - Abdominal Inspection: Normal Distension: No distension Bowel sounds: Normal Tenderness: Nontender Organomegaly: No organomegaly - Back Back: Normal - No midline tenderness or step-offs., Nontender. No: Deformity/step-off, CVA tenderness - Extremities General upper extremity: Other - There is tenderness of the lateral aspect of the left wrist. No deformity. Full range of motion of the left upper extremity. - Neurological Neuro grossly intact: Yes Cognition: Normal Orientation: AAOx4 Samara Coma Scale Eye Opening: Spontaneous Goessel Coma Scale Verbal: Oriented Samara Coma Scale Motor: Obeys Commands Samara Coma Scale Total: 15 Speech: Normal Motor strength normal: LUE, RUE, LLE, RLE Sensory: Normal Notes: Nonfocal neurologic exam. There is no motor, sensory or cerebellar deficits. - Skin Skin Temperature: Warm Skin Moisture: Dry Skin Color: Normal Course - Re-evaluation Re-evalutation: 10/31/19 04:00 Clinical picture suggest mechanical fall. Differential diagnosis includes wrist contusion versus fracture versus forehead contusion versus intercranial injury. Will get CT scan since patient is complaining of a headache. We will also get x-ray of the wrist. 10/31/19 05:33 Patient reevaluated. She is doing well. X-ray and CT negative. She is stable for discharge. - Vital Signs Vital signs: Temp Pulse Resp BP Pulse Ox 97.4 F 76 18 178/92 H 97 10/31/19 03:30 10/31/19 03:30 10/31/19 03:30 10/31/19 03:30 10/31/19 03:30 Discharge - Discharge Clinical Impression: Fall Qualifiers: Encounter type: initial encounter Qualified Code(s): W19.XXXA - Unspecified fall, initial encounter Head injury Qualifiers: Encounter type: initial encounter Qualified Code(s): S09.90XA - Unspecified injury of head, initial encounter Contusion of wrist, left Qualifiers: Encounter type: initial encounter Qualified Code(s): S60.212A - Contusion of left wrist, initial encounter Condition: Good Disposition: HOME, SELF-CARE Instructions: Head Injury Precautions ([facility]), Wrist Sprain ([facility]) Prescriptions: Naproxen 500 mg PO BID PRN #14 tablet PRN Reason: Referrals: MELISSA WEST PA-C [Primary Care Provider] - Follow up as needed
--- NOTE | 2019-10-31 04:27 | RADIOLOGY REPORT (SQ) ---
EXAM DESCRIPTION: CT HEAD WITHOUT IV CONTRAST COMPLETED DATE/TME: 10/31/2019 03:44 CLINICAL HISTORY: 59 years, Female, fall/injury COMPARISON: 03/31/2018 CT TECHNIQUE: 210 Images stored on PACS. All CT scanners at this facility use dose modulation, iterative reconstruction, and/or weight based dosing when appropriate to reduce radiation dose to as low as reasonably achievable (ALARA). [facility]: Dose Right [facility]: CareDose [facility]: Dose Right [facility]: Teradose 4D [facility]: [employer] LIMITATIONS: None. FINDINGS: The globes are intact. Polyp of the right maxillary sinus. No displaced or depressed skull fracture. No intra or extra-axial hemorrhage. CT is limited for evaluation of acute infarct. No CT evidence for large or territorial acute infarct. No mass or midline shift IMPRESSION: No acute intracranial abnormality TECHNICAL DOCUMENTATION: Quality ID # [id number]: Final reports with documentation of one or more dose reduction techniques (e.g., Automated exposure control, adjustment of the mA and/or kV according to patient size, use of iterative reconstruction technique) copyright 2011 [employer]- All Rights Reserved
--- NOTE | 2019-10-31 04:39 | RADIOLOGY REPORT (SQ) ---
EXAM: X-ray wrist three or more views CLINICAL DATA: 59-year-old female with left wrist pain status post fall, pain medial aspect of wrist TECHNICAL DATA: Three x-ray views of the left wrist were performed on 10/31/2019 at 3:55 AM. COMPARISONS: None FINDINGS: There is no evidence of fracture or dislocation. There is no significant arthritis or degenerative change. No focal lytic or sclerotic bone lesions are seen. Bone mineralization is normal. No focal soft tissue abnormalities are identified. IMPRESSION: No evidence of acute osseous injury involving the left wrist.
[2019-10-31] MEDS ORDERED: IBUPROFEN 600 MG TABLET PO ONE (05:23)
[2019-10-31 06:16] VITALS: BP 155/78
== END 2019-10-31 06:15 | disposition home or self-care (01) ==
LOC: ER 03:23
DX: S09.90XA Unspecified injury of head, initial encounter (principal); S60.212A Contusion of left wrist, initial encounter; W01.0XXA Fall on same level from slipping, tripping and stumbling without subsequent striking against object, initial encounter; Y92.239 Unspecified place in hospital as the place of occurrence of the external cause; F17.200 Nicotine dependence, unspecified, uncomplicated; I10 Essential (primary) hypertension; E11.9 Type 2 diabetes mellitus without complications; Z98.51 Tubal ligation status
CPT/HCPCS: 99284; 73110; 70450; L3908; J3490

== ENCOUNTER 2019-12-06 23:28 | Emergency (ER) | payer MEDICAID ==
[2019-12-06 23:47] VITALS: BP 154/89
[2019-12-07] MEDS ORDERED: ALBUTEROL SULFATE 0.042% NEB (1.25 MG/3 ML) AMPUL NEB ONE (00:32)
== END 2019-12-07 04:05 | disposition left against medical advice (07) ==
LOC: ER 23:28
DX: Z53.21 Procedure and treatment not carried out due to patient leaving prior to being seen by health care provider (principal)

== ENCOUNTER 2019-12-08 20:15 | Emergency (ER) | payer MEDICAID ==
--- NOTE | 2019-12-08 20:39 | ER Document Report ---
ED Medical Screen (RME) - General Stated Complaint: COUGH Time Seen by Provider: 12/08/19 20:34 Primary Care Provider: MELISSA WEST PA-C [Primary Care Provider] - Follow up as needed Mode of Arrival: Ambulatory Information source: Patient Notes: 59-year-old female with history of COPD presents emergency department with reports of recent treatment for pneumonia by her primary care provider. She reports he gave her some antibiotic that starts with an L. She reports she was on it for 7 days just finished it. She reports she still not feeling better. Patient is a positive smoker. No complaints of fever vomiting or diarrhea. I have greeted and performed a rapid initial assessment of this patient. A comprehensive ED assessment and evaluation of the patient, analysis of test results and completion of the medical decision making process will be conducted by additional ED providers. TRAVEL OUTSIDE OF THE [place] IN LAST 30 DAYS: No - Related Data Allergies/Adverse Reactions: hydrochlorothiazide [From Maxzide] Allergy (Verified 10/31/19 03:35) triamterene [From Maxzide] Allergy (Verified 10/31/19 03:35) Past Medical History - Past Medical History Cardiac Medical History: Reports: Hx Hypercholesterolemia - On no medication for same, Hx Hypertension Denies: Hx Congestive Heart Failure, Hx DVT, Hx Heart Attack, Hx Pulmonary Embolism, Hx Heart Murmur Pulmonary Medical History: Reports: Hx Bronchitis, Hx COPD, Hx Pneumonia, Hx Sleep Apnea Denies: Hx Respiratory Failure, Hx Tuberculosis Neurological Medical History: Denies: Hx Seizures Endocrine Medical History: Reports: Hx Diabetes Mellitus Type 1, Hx Diabetes Mellitus Type 2. Denies: Hx Hyperthyroidism, Hx Hypothyroidism Renal/ Medical History: Reports: Hx Renal Insufficiency - Her creatinines have remained under 1.0. Denies: Hx Peritoneal Dialysis GI Medical History: Reports: Hx Gastroesophageal Reflux Disease. Denies: Hx Cirrhosis, Hx Hepatitis, Hx Pancreatitis Musculoskeltal Medical History: Reports Hx Arthritis, Denies Hx Systemic Lupus Erythematosus Skin Medical History: Denies Hx Eczema, Denies Hx Psoriasis Psychiatric Medical History: Reports: Hx Anxiety, Hx Bipolar Disorder, Hx Depression Infectious Medical History: Denies: Hx Hepatitis Past Surgical History: Reports: Hx Section - x2, Hx Tubal Ligation, Other - Laser eye surgery 2. - Immunizations Immunizations up to date: Yes Hx Diphtheria, Pertussis, Tetanus Vaccination: Yes Physical Exam - Vital signs Vitals: Temp Pulse Resp BP Pulse Ox 98.1 F 82 14 156/90 H 96 12/08/19 20:22 12/08/19 20:22 12/08/19 20:22 12/08/19 20:22 12/08/19 20:22 Course - Vital Signs Vital signs: Temp Pulse Resp BP Pulse Ox 98.1 F 82 14 156/90 H 96 12/08/19 20:22 12/08/19 20:22 12/08/19 20:22 12/08/19 20:22 12/08/19 20:22 Doctor's Discharge - Discharge Referrals: MELISSA WEST PA-C [Primary Care Provider] - Follow up as needed
[2019-12-08 21:30] LABS: HEMATOCRIT 31.5 % (36.0-47.0); HEMOGLOBIN 10.9 g/dL (12.0-15.5); MEAN CORPUSCULAR HEMOGLOBIN 26.8 pg (27.0-33.4); MEAN CORPUSCULAR HGB CONC 34.6 g/dL (32.0-36.0); MEAN CORPUSCULAR VOLUME 78 fl (80-97); PLATELET COUNT 170 10^3/uL (150-450); RED BLOOD COUNT 4.07 10^6/uL (3.72-5.28); RED CELL DISTRIBUTION WIDTH 16.4 % (11.5-14.0); WHITE BLOOD COUNT 5.1 10^3/uL (4.0-10.5)
[2019-12-08 21:33] LABS: ALBUMIN 4.1 g/dL (3.5-5.0); ALKALINE PHOSPHATASE 102 U/L (38-126); ANION GAP 11 (5-19); ASPARTATE AMINO TRANSFERASE 26 U/L (14-36); BILIRUBIN,DIRECT 0.3 mg/dL (0.0-0.4); BILIRUBIN,TOTAL 0.5 mg/dL (0.2-1.3); BLOOD UREA NITROGEN 11 mg/dL (7-20); CARBON DIOXIDE 27 mmol/L (22-30); CHLORIDE 105 mmol/L (98-107); GLUCOSE 108 mg/dL (75-110)
--- NOTE | 2019-12-08 21:34 | RADIOLOGY REPORT (SQ) ---
EXAM DESCRIPTION: XR CHEST 2 VIEWS COMPLETED DATE/TME: 12/08/2019 20:36 CLINICAL HISTORY: 59 years, Female, cough hx copd hx pneumonia COMPARISON: April 03, 2019 NUMBER OF VIEWS: 2 TECHNIQUE: LIMITATIONS: None. FINDINGS: Cardiomediastinal silhouette is top normal. Lungs grossly clear. Mild chronic change. IMPRESSION: No acute process. No adverse change copyright 2010 [employer] All Rights Reserved
[2019-12-08] MEDS ORDERED: HYDROCODONE/ACETAMINOPHEN 5-325 MG (6 TAB/ER DISP) PO PRN (21:49)
[2019-12-08] MEDS ORDERED: HYDROCODONE/ACETAMINOPHEN 5-325 MG TABLET PO ONE (21:49)
[2019-12-08] MEDS ORDERED: ALBUTEROL SULFATE 0.083% NEB 2.5 MG/3 ML AMPUL NEB ONE (21:49)
[2019-12-08] MEDS ORDERED: AZITHROMYCIN 250 MG TABLET PO ONE (21:49)
[2019-12-08] MEDS ORDERED: PREDNISONE 20 MG TABLET PO ONE (21:50)
[2019-12-08 22:17] LABS: ABSOLUTE LYMPHOCYTES# (MANUAL) 1.9 10^3/uL (0.5-4.7); ABSOLUTE MONOCYTES # (MANUAL) 0.3 10^3/uL (0.1-1.4); BASOPHILS % (MANUAL) 0 % (0-2); EOSINOPHILS % (MANUAL) 4 % (0-6); LYMPHOCYTES % (MANUAL) 38 % (13-45); MONOCYTES % (MANUAL) 6 % (3-13); SEGMENTED NEUTROPHILS % (MAN) 52 % (42-78); TOTAL CELLS COUNTED 100
[2019-12-08 22:18] LABS: ANISOCYTOSIS 1+; PLATELET COMMENT DECREASED; POLYCHROMASIA 1+; TEAR DROP CELLS 1+
--- NOTE | 2019-12-08 22:23 | ER Document Report ---
Entered by BLAIR REILLY SCRIBE [id number]/08/[id number] Acting as scribe for:WYATT VELASQUEZ IV, MD ED General - General Chief Complaint: Productive Cough Stated Complaint: COUGH Time Seen by Provider: 12/08/19 20:34 Primary Care Provider: MELISSA WEST PA-C [Primary Care Provider] - Follow up as needed Mode of Arrival: Ambulatory Information source: Patient Notes: This 59 year old female patient with a history of COPD presents to the ED today with complaints of a productive cough that started x1 week ago. Patient states that she was recently treated for pneumonia with Levaquin by her PCP x1 week ago, but she just finished it. Patient states that she is still not feeling better after the antibiotics and that she never received anything for her cough. Patient reports thick, mucusy phlegm and wheezing. Patient denies any fevers, vomiting, or diarrhea. TRAVEL OUTSIDE OF THE [place] IN LAST 30 DAYS: No - Related Data Allergies/Adverse Reactions: hydrochlorothiazide [From Maxzide] Allergy (Verified 10/31/19 03:35) triamterene [From Maxzide] Allergy (Verified 10/31/19 03:35) Home Medications: pt doesn't remember the names Past Medical History - General Information source: Patient - Social History Smoking Status: Current Every Day Smoker Cigarette use (# per day): Yes Chew tobacco use (# tins/day): No Smoking Education Provided: No Family History: Reviewed & Not Pertinent, DM, Malignancy - Mother had liver cancer, Other - Father of sudden arrhythmia, had cirrhosis and a liver transplant. Patient has suicidal ideation: No Patient has homicidal ideation: No - Past Medical History Cardiac Medical History: Reports: Hx Hypercholesterolemia - On no medication for same, Hx Hypertension Pulmonary Medical History: Reports: Hx Bronchitis, Hx COPD, Hx Pneumonia, Hx Sleep Apnea Endocrine Medical History: Reports: Hx Diabetes Mellitus Type 1, Hx Diabetes Mellitus Type 2 Renal/ Medical History: Reports: Hx Renal Insufficiency - Her creatinines have remained under 1.0 GI Medical History: Reports: Hx Gastroesophageal Reflux Disease Musculoskeletal Medical History: Reports Hx Arthritis Psychiatric Medical History: Reports: Hx Anxiety, Hx Bipolar Disorder, Hx Depression Past Surgical History: Reports: Hx Section - x2, Hx Tubal Ligation, Other - Laser eye surgery 2. - Immunizations Immunizations up to date: Yes Hx Diphtheria, Pertussis, Tetanus Vaccination: Yes Hx Pneumococcal Vaccination: 02/26/12 Review of Systems - Review of Systems Constitutional: See HPI. denies: Fever EENT: No symptoms reported Cardiovascular: No symptoms reported Respiratory: See HPI, Cough, Sputum, Wheezing Gastrointestinal: See HPI. denies: Diarrhea, Vomiting Genitourinary: No symptoms reported Female Genitourinary: No symptoms reported Musculoskeletal: No symptoms reported Skin: No symptoms reported Hematologic/Lymphatic: No symptoms reported Neurological/Psychological: No symptoms reported -: Yes All other systems reviewed and negative Physical Exam - Vital signs Vitals: Temp Pulse Resp BP Pulse Ox 98.1 F 82 14 156/90 H 96 12/08/19 20:22 12/08/19 20:22 12/08/19 20:22 12/08/19 20:22 12/08/19 20:22 - General General appearance: Alert - HEENT Head: Normocephalic, Atraumatic Eyes: Normal Pupils: PERRL - Respiratory Respiratory status: No respiratory distress Chest status: Nontender Breath sounds: Wheezing - Expiratory Chest palpation: Normal - Cardiovascular Rhythm: Regular Heart sounds: Normal auscultation Murmur: No - Abdominal Inspection: Normal Distension: No distension Bowel sounds: Normal Tenderness: Nontender Organomegaly: No organomegaly - Back Back: Normal, Nontender - Extremities General upper extremity: Normal inspection General lower extremity: Normal inspection - Neurological Neuro grossly intact: Yes - Psychological Associated symptoms: Normal affect, Normal mood - Skin Skin Temperature: Warm Skin Moisture: Dry Skin Color: Normal Course - Re-evaluation Re-evalutation: 12/08/19 22:24 Results of ED MSE discussed with patient. All questions were answered prior to discharge. Emergency signs and symptoms, reasons to return to the emergency department discussed with patient. - Vital Signs Vital signs: Temp Pulse Resp BP Pulse Ox 98.1 F 82 14 156/90 H 96 12/08/19 20:22 12/08/19 20:22 12/08/19 20:22 12/08/19 20:22 12/08/19 20:22 - Laboratory Result Diagrams: 12/08/19 21:01 12/08/19 21:01 Laboratory results interpreted by me: 12/08/19 21:01 Hgb 10.9 L Hct 31.5 L MCV 78 L MCH 26.8 L RDW 16.4 H - EKG Interpretation by Me Additional EKG results interpreted by me: 12/08/19 22:25 EKG obtained on 12/08/2019 at 2051 hrs. was interpreted by this MD. Findings: Sinus rhythm, rate 80, normal axis, P waves proceed QRS complexes, QRS complexes appear narrow, there are no obvious patterns of ST segment elevation or depression present to suggest acute myocardial ischemia or infarction. Impressi on sinus rhythm with nonspecific ST segments. Discharge - Discharge Clinical Impression: Bronchitis, Tobacco abuse Condition: Good Disposition: HOME, SELF-CARE Additional Instructions: Return to the Emergency Department without delay if any worse. HOME CARE INSTRUCTIONS & INFORMATION: Thank you for choosing us for your medical needs. We hope you're satisfied with the care you received. After you leave, you must properly care for your problem and, at the same time, observe its progress. Any condition can change. Some illnesses can change rapidly over hours or days. If your condition worsens, return to the Emergency Department or see your physician promptly. ABOUT YOUR X-RAYS AND EKG'S: If you had an EKG or X-rays taken, they have been read by the Emergency Physician. The X-rays and EKG's will also be read by a Radiologist or [employer] Consultant within 24 hours. If discrepancies are noted, you will be notified by telephone. Please be certain the ED has a correct telephone number & address where you can be reached. Also, realize that some fractures or abnormalities do not show up on initial X-rays. If your symptoms continue, see your physician. ABOUT YOUR LABORATORY TEST: If you had laboratory tests, the results have been reviewed by the Emergency Physician. Some test results (for example cultures) may not be available for several days. You will be contacted if any test result shows you need additional treatment. Please be certain the ED has a correct telephone number and address where you can be reached. ABOUT YOUR MEDICATIONS: You will receive instructions on how to take your medicine on the prescription label you receive. Additional information may be provided by the Pharmacy. If you have questions afterwards, call the ED for clarification or further instructions. Some prescribed medications may cause drowsiness. Do not perform tasks such as driving a car or operating machinery without consulting your Pharmacist. If you feel you need a refill of pain medication, your condition will need re-evaluation. Please do not call for a refill of any medication. ABOUT YOUR SIGNATURE: Signature of this document acknowledges to followin. Understanding that you received emergency treatment and that you may be released before al medical problems are known or treated. Please be certain the ED has a correct phone number & address where you can be reached. 2. Acknowledgement that you will arrange for follow-up care as recommended. 3. Authorization for the Emergency Physician to provide information to your follow-up Physician in order to maximize your care. AT ANY TIME, IF YOUR SYMPTOMS CHANGE SIGNIFICANTLY OR WORSEN OR YOU DEVELOP NEW SYMPTOMS, RETURN TO THE EMERGENCY DEPARTMENT IMMEDIATELY FOR RE-EVALUATION. OUR GOAL IS TO PROVIDE EXCELLENT MEDICAL CARE! WE HOPE THAT WE HAVE MET YOUR EXPECTATIONS DURING YOUR EMERGENCY DEPARTMENT VISIT AND THAT YOU FEEL YOU HAVE RECEIVED EXCELLENT CARE! Bronchitis You have acute bronchitis. This disease is an infection or inflammation of the air passageways in your lungs. Symptoms usually include cough, low grade fever, shortness of breath, and wheezing. The cough usually persists for a couple of weeks. Most cases of bronchitis get better without antibiotics. We prescribe antibiotics when we believe bacteria are damaging your airways, or if there's high risk the bronchitis will worsen into pneumonia. Increase your fluid intake. A cool mist humidifier may make your lungs more comfortable. An expectorant (cough medicine that loosens phlegm) can help. If you smoke, STOP!!! Recovery from bronchitis can be somewhat slow, but you should see improvement within a day or two. Repeated episodes of bronchitis may result in lung damage -- for example, chronic bronchitis, recurrent pneumonias, or emphysema. Call the doctor if you develop increasing fever, shortness of breath, chest pain, bloody sputum, or otherwise worsen. If you have not improved at all after several days, contact the physician. Stop Smoking You should stop smoking. The tar and chemicals in cigarette smoke are harmful. Smoking has been shown to cause: Emphysema and chronic bronchitis Lung cancer Cancer of the mouth, larynx, stomach, and pancreas Heart disease and stroke Stillbirths and miscarriage Premature aging In addition, smoking increases the chances of respiratory infections and ear infections in children of smokers, and increases the risk of cancer in persons exposed to second-hand smoke. Classes are available to help you stop smoking. If you are serious about wanting to quit, we can help arrange this therapy for you, or you can contact the local lung or cancer association. Prescriptions: Hydrocodone/Chlorphen P-Stirex [Hydrocodone-Chlorphen ER Susp] 5 ml PO QHS #60 [email or web address] Prednisone [Deltasone 10 mg Tablet] 10 mg PO DAILY 5 Days #15 tablet Albuterol Sulfate [Proair HFA Inhalation Aerosol 8.5 gm MDI] 2 puff IH Q4H PRN #1 mdi PRN Reason: Azithromycin [Zithromax 250 mg Tablet] 250 mg PO DAILY 4 Days #4 tablet Referrals: MELISSA WEST PA-C [Primary Care Provider] - Follow up as needed I personally performed the services described in the documentation, reviewed and edited the documentation which was dictated to the scribe in my presence, and it accurately records my words and actions.
[2019-12-08 22:50] VITALS: BP 132/62
--- NOTE | 2019-12-09 00:25 | EKG REPORT ---
SEVERITY:- ABNORMAL ECG - SINUS RHYTHM LAD, CONSIDER LEFT ANTERIOR FASCICULAR BLOCK : Confirmed by: Holli Interiano 09-Dec-2019 00:24:53
== END 2019-12-08 23:04 | disposition home or self-care (01) ==
LOC: ER 20:15
DX: J20.9 Acute bronchitis, unspecified (principal); F17.210 Nicotine dependence, cigarettes, uncomplicated; E78.00 Pure hypercholesterolemia, unspecified; I10 Essential (primary) hypertension; J44.9 Chronic obstructive pulmonary disease, unspecified; E11.9 Type 2 diabetes mellitus without complications; Z98.51 Tubal ligation status
CPT/HCPCS: 93005; 94640; 99284; 36415; 85025; 80053; 71046; 93010; Q0144; J7512

== ENCOUNTER 2020-01-14 15:03 | Emergency (ER) | payer MEDICAID ==
[2020-01-14 15:46] LABS: ABSOLUTE EOSINOPHILS # (AUTO) 0.1 10^3/uL (0.0-0.6); ABSOLUTE LYMPHOCYTES (AUTO) 1.3 10^3/uL (0.5-4.7); ABSOLUTE MONOCYTES (AUTO) 0.4 10^3/uL (0.1-1.4); BASOPHILS % (AUTO) 0.5 % (0-2); EOSINOPHILS % (AUTO) 1.7 % (0-6); HEMATOCRIT 35.2 % (36.0-47.0); HEMOGLOBIN 11.7 g/dL (12.0-15.5); LYMPHOCYTES % (AUTO) 16.2 % (13-45); MEAN CORPUSCULAR HEMOGLOBIN 26.3 pg (27.0-33.4); MEAN CORPUSCULAR HGB CONC 33.2 g/dL (32.0-36.0); MEAN CORPUSCULAR VOLUME 79 fl (80-97); MONOCYTES % (AUTO) 4.5 % (3-13); PLATELET COUNT 166 10^3/uL (150-450); RED BLOOD COUNT 4.46 10^6/uL (3.72-5.28); RED CELL DISTRIBUTION WIDTH 15.5 % (11.5-14.0); SEGMENTED NEUTROPHILS % (AUTO) 77.1 % (42-78); TOTAL CELLS COUNTED % (AUTO) 100 %; WHITE BLOOD COUNT 7.8 10^3/uL (4.0-10.5)
[2020-01-14 16:04] LABS: ALBUMIN 3.3 g/dL (3.5-5.0); ALKALINE PHOSPHATASE 95 U/L (38-126); ANION GAP 7 (5-19); ASPARTATE AMINO TRANSFERASE 23 U/L (14-36); BILIRUBIN,TOTAL 0.6 mg/dL (0.2-1.3); BLOOD UREA NITROGEN 15 mg/dL (7-20); CALCIUM 8.3 mg/dL (8.4-10.2); CARBON DIOXIDE 25 mmol/L (22-30); CHLORIDE 106 mmol/L (98-107); GLUCOSE 211 mg/dL (75-110); POTASSIUM 3.9 mmol/L (3.6-5.0)
[2020-01-14] MEDS ORDERED: NORMAL SALINE 500 ML IV ONE (16:21)
--- NOTE | 2020-01-14 16:31 | ER Document Report ---
ED General - General Chief Complaint: Low Blood Sugar Stated Complaint: BLOOD SUGAR LOW Time Seen by Provider: 01/14/20 15:33 Primary Care Provider: MELISSA WEST PA-C [Primary Care Provider] - Follow up as needed TRAVEL OUTSIDE OF THE [place] IN LAST 30 DAYS: No - HPI Notes: Patient is a 59-year-old female who presents to the emergency department for evaluation. is a primary historian as the patient has some difficulty remembering the details of the day. Evidently last night they went to sleep. He checked her glucose and found it to be in the 80s. She was given her normal dose of 7030 and went to sleep. They woke up at approximately 2 PM, but she was not acting normally. She was stiff. Her eyes were open but she was not really responsive. He checked her blood glucose and found it to be in the 30s. EMS was called. The patient was administered glucagon and she has had improvement in her mental status. They had trouble sleeping, they normally do not sleep this late. Patient has pain in her right shoulder, her back, her left hip. These of all been going on for some time. Patient's further notes that she has had increased confusion and dizziness for some time. This is been ongoing for over a year. They are concerned about the possibility of dementia. On further questioning, patient also states that she has had some dysuria over the last several days. She complains of pain in her right shoulder, her left hip. These of all been ongoing. - Related Data Allergies/Adverse Reactions: hydrochlorothiazide [From Maxzide] Allergy (Verified 10/31/19 03:35) triamterene [From Maxzide] Allergy (Verified 10/31/19 03:35) Home Medications: Exenatide 2 mg subcu weekly, atorvastatin 40 mg nightly, aspirin 81 mg daily, benztropine 1 mg every morning, bupropion XL 300 mg daily, duloxetine 60 mg twice daily, Neurontin 600 mg, 2 tabs 3 times a day, metformin 500 mg twice daily, omeprazole 20 mg daily, propanolol 120 mg daily, Seroquel 200 mg at bedtime, Requip 3 times a day, unknown dose, Humalog per sliding scale, 70/30 Past Medical History - General Information source: Patient, Relative - Social History Smoking Status: Current Every Day Smoker Family History: Reviewed & Not Pertinent, DM, Malignancy - Mother had liver cancer, Other - Father of sudden arrhythmia, had cirrhosis and a liver transplant. Patient has suicidal ideation: No Patient has homicidal ideation: No - Past Medical History Cardiac Medical History: Reports: Hx Hypercholesterolemia - On no medication for same, Hx Hypertension Denies: Hx Congestive Heart Failure, Hx DVT, Hx Heart Attack, Hx Pulmonary Embolism, Hx Heart Murmur Pulmonary Medical History: Reports: Hx Bronchitis, Hx COPD, Hx Pneumonia, Hx Sleep Apnea Denies: Hx Respiratory Failure, Hx Tuberculosis Neurological Medical History: Denies: Hx Seizures Endocrine Medical History: Reports: Hx Diabetes Mellitus Type 2. Denies: Hx Hyperthyroidism, Hx Hypothyroidism Renal/ Medical History: Reports: Hx Renal Insufficiency - Her creatinines have remained under 1.0. Denies: Hx Peritoneal Dialysis GI Medical History: Reports: Hx Gastroesophageal Reflux Disease. Denies: Hx Cirrhosis, Hx Hepatitis, Hx Pancreatitis Musculoskeletal Medical History: Reports Hx Arthritis, Denies Hx Systemic Lupus Erythematosus Skin Medical History: Denies Hx Eczema, Denies Hx Psoriasis Psychiatric Medical History: Reports: Hx Anxiety, Hx Bipolar Disorder, Hx Depression Infectious Medical History: Denies: Hx Hepatitis Past Surgical History: Reports: Hx Section - x2, Hx Tubal Ligation, Other - Laser eye surgery 2. - Immunizations Immunizations up to date: Yes Hx Diphtheria, Pertussis, Tetanus Vaccination: Yes Hx Pneumococcal Vaccination: 02/26/12 Review of Systems - Review of Systems Constitutional: See HPI Neurological/Psychological: See HPI -: Yes All other systems reviewed and negative Physical Exam - Vital signs Vitals: Pulse Ox 100 01/14/20 15:28 - Notes Notes: Vital signs reviewed, please refer to chart. Head is normocephalic, atraumatic. Pupils equal round, reactive to light. Oral mucosa is dry. Neck is supple without meningismus. Heart is regular rate and rhythm. Lungs are clear to auscultation bilaterally. Abdomen is soft, nontender, normoactive bowel sounds throughout. Extremities without cyanosis, clubbing. Posterior calves are nontender. Peripheral pulses are equal. Skin is warm and dry. Patient is awake, alert, oriented x3, although it takes her some time to answer her orientation questions. Cranial nerves II - XII are grossly intact without focal neurological deficits. Strength is plus 5 out of 5 bilateral upper and lower extremities. Sensation is intact. Reflexes symmetrical. Intact [id number], rapid alternating movements, [id number]. Course - Re-evaluation Re-evalutation: 01/14/20 16:33 Patient presents emergency department for evaluation. She had hypoglycemia when found by EMS. She was treated with glucagon. Her glucose improved. Patient has no neurological deficits at this time. Her blood glucoses remained elevated. She does have some dysuria, so we will check her for urinary tract infection. I strongly encouraged her to discuss referral onto neurology for her intermittent confusion. I also suspect that this might be in part secondary to her large dose of Neurontin and other sedating medications. It was encouraged that she discuss this with her primary care provider as well. She voiced understanding. 01/14/20 18:32 Patient remained stable throughout the course of her stay. Her laboratory investigations did reveal large leukocyte esterase. Given her urinary frequency I am inclined to treat. Urine culture was ordered, the patient was ordered Keflex. Her urine drug screen was positive for opiates. I went back through her history. She does have a history of drug abuse and misuse according to history and physicals in the past. I do suspect that might be in part an etiology to her symptoms. The patient's blood sugar dropped down to 75 again. According to the patient she really does not have any food at home. They receive disability and food stamps, but they have paid their bills with the disability money, do not have any food stamps for food. The patient was given a tray. I strongly encouraged them to follow-up with neurology in regards to her other issues. She was amenable to this plan was discharged. - Vital Signs Vital signs: Temp Pulse Resp BP Pulse Ox 98.4 F 18 155/91 H 100 01/14/20 16:01 01/14/20 17:01 01/14/20 17:01 01/14/20 17:01 - Laboratory Result Diagrams: 01/14/20 15:30 01/14/20 15:30 Laboratory results interpreted by me: 01/14/20 01/14/20 01/14/20 15:30 15:30 16:34 Hgb 11.7 L Hct 35.2 L MCV 79 L MCH 26.3 L RDW 15.5 H Creatinine 0.51 L Glucose 211 H Calcium 8.3 L Total Protein 6.0 L Albumin 3.3 L Urine Blood SMALL H Ur Leukocyte Esterase LARGE H Discharge - Discharge Clinical Impression: Hypoglycemia, Intermittent confusion Urinary tract infection Qualifiers: Urinary tract infection type: site unspecified Hematuria presence: without hematuria Qualified Code(s): N39.0 - Urinary tract infection, site not specified Condition: Stable Disposition: HOME, SELF-CARE Instructions: Urinary Tract Infection ([facility]), Cephalexin ([facility]), Altered Mental Status ([facility]), Hypoglycemia ([facility]) Additional Instructions: Take all the Keflex as directed until it is gone. Please be sure to check your blood glucose frequently, eat food when you take your insulin. Discussed referral onto neurology with your primary care provider. Follow-up with your primary care doctor this week. Return to the emergency department with worsening or new concerning symptoms of any sort. Referrals: MELISSA WEST PA-C [Primary Care Provider] - Follow up as needed
[2020-01-14 17:28] LABS: APPEARANCE,URINE SLIGHTLY-CLOUDY; BILIRUBIN,URINE NEGATIVE (NEGATIVE); COLOR,URINE YELLOW; GLUCOSE, URINE NEGATIVE (NEGATIVE); KETONES,URINE NEGATIVE (NEGATIVE); LEUKOCYTE ESTERASE,URINE LARGE (NEGATIVE); NITRITE,URINE NEGATIVE (NEGATIVE); PROTEIN,URINE NEGATIVE (NEGATIVE); URINE SPECIFIC GRAVITY 1.015; UROBILINOGEN,URINE NEGATIVE mg/dL (<2.0)
[2020-01-14 17:40] LABS: ADD MANUAL MICROSCOPIC YES
[2020-01-14 17:41] LABS: AMORPHOUS SEDIMENT,UR TRACE; BACTERIA,URINE 2+ /HPF; URINE AMPHETAMINES SCREEN NEGATIVE; URINE BARBITURATES SCREEN NEGATIVE; URINE BENZODIAZEPINES SCREEN NEGATIVE; URINE COCAINE SCREEN NEGATIVE; URINE MARIJUANA (THC) SCREEN NEGATIVE; URINE METHADONE SCREEN NEGATIVE; URINE PHENCYCLIDINE SCREEN NEGATIVE
[2020-01-14] MEDS ORDERED: CEPHALEXIN 500 MG CAPSULE PO ONE (18:33)
[2020-01-14] MEDS ORDERED: ACETAMINOPHEN 325 MG TABLET PO ONE (18:34)
[2020-01-14 19:19] VITALS: BP 150/93
== END 2020-01-14 19:48 | disposition home or self-care (01) ==
LOC: ER 15:03
DX: E11.649 Type 2 diabetes mellitus with hypoglycemia without coma (principal); N39.0 Urinary tract infection, site not specified; R41.0 Disorientation, unspecified; M25.511 Pain in right shoulder; M25.552 Pain in left hip; M54.9 Dorsalgia, unspecified; R42 Dizziness and giddiness; F41.9 Anxiety disorder, unspecified; M19.90 Unspecified osteoarthritis, unspecified site; I10 Essential (primary) hypertension; J44.9 Chronic obstructive pulmonary disease, unspecified; E78.00 Pure hypercholesterolemia, unspecified; K21.9 Gastro-esophageal reflux disease without esophagitis; F31.9 Bipolar disorder, unspecified; Z79.899 Other long term (current) drug therapy; Z79.82 Long term (current) use of aspirin; Z79.4 Long term (current) use of insulin
CPT/HCPCS: 99284; 96360; 36415; 87086; 82962; 83735; 85025; 87088; 80053; 81001; 87186; 80307; J3490; J7040

== ENCOUNTER 2020-01-19 09:03 | Emergency (ER) | payer MEDICAID ==
--- NOTE | 2020-01-19 10:05 | ER Document Report ---
ED General - General Chief Complaint: Low Blood Sugar Stated Complaint: BLOOD SUGAR PROBLEM Time Seen by Provider: 01/19/20 09:40 Primary Care Provider: MELISSA WEST PA-C [Primary Care Provider] - Follow up as needed Notes: CHIEF COMPLAINT: Hypoglycemia HPI: 59-year-old female brought by EMS for evaluation of hypoglycemia this morning. Patient seen 5 days ago for same complaint. Patient's caregiver indicates that her blood sugar was 257 before she went to bed. He gave her 65 units of 7030 subcutaneous as well as 10 units of Humalog. He states this is sliding scale. Patient was found this morning minimally responsive with a blood glucose of 38. He states EMS was called and gave her glucagon and now she is much better. Patient has no significant complaints at this time. Denies headache chest pain shortness of breath. ROS: See HPI - all other systems were reviewed and are otherwise negative Constitutional: no fever Eyes: no drainage, no blurred vision ENT: no runny nose, no sore throat Cardiovascular: no chest pain Resp: no SOB, no cough GI: no vomiting, no diarrhea, no abdominal pain : no dysuria Integumentary: no rash Allergy: no hives Musculoskeletal: no extremity pain or swelling Neurological: no numbness/tingling, no weakness MEDICATIONS: I agree with the patient medications as charted by the RN. ALLERGIES: I agree with the allergies as charted by the RN. PAST MEDICAL HISTORY/PAST SURGICAL HISTORY: Reviewed and agree as charted by RN. SOCIAL HISTORY: Reviewed and agree as charted by RN. FAMILY HISTORY: No significant familial comorbid conditions directly related to patient complaint EXAM: Reviewed vital signs as charted by RN. CONSTITUTIONAL: Alert and oriented and responds appropriately to questions. Well-appearing; well-nourished, no acute distress HEAD: Normocephalic; atraumatic EYES: PERRL; Conjunctivae clear, sclerae non-icteric ENT: normal nose; no rhinorrhea; moist mucous membranes; pharynx without lesions noted, no uvula edema or deviation, no tonsillar hypertrophy, phonation normal NECK: Supple without meningismus; non-tender; no cervical lymphadenopathy, no masses CARD: RRR; no murmurs, no clicks, no rubs, no gallops; symmetric distal pulses RESP: Normal chest excursion without splinting or tachypnea; breath sounds clear and equal bilaterally; no wheezes, no rhonchi, no rales, pulse oximetry 97% on room air not hypoxic ABD/GI: Normal bowel sounds; non-distended; soft, non-tender, no rebound, no guarding; no palpable organomegaly or masses. BACK: The back appears normal and is non-tender to palpation, there is no CVA tenderness EXT: Normal ROM in all joints; non-tender to palpation; no cyanosis, no effusions, no edema SKIN: Normal color for age and race; warm; dry; good turgor; no acute lesions noted NEURO: Moves all extremities equally; Motor and sensory function intact PSYCH: The patient's mood and manner are appropriate. Grooming and personal hygiene are appropriate. MDM: 59-year-old diabetic female brought in for hypoglycemia again. Caregiver indicates that they do not have a lot of food in the house and she has not been eating much recently but he is still giving her the insulin dosing previously prescribed. [place]ocr[place]ology [place], they will call the office today to speak with the on-call provider regarding changing the patient's dosing regimen of 7030 or sliding scale regimen. Discussed at length with the caregiver. If they are not able to speak with endocrinology today he should hold the sliding scale insulin and give the 7030 if patient has been eating. Will feed the patient in the emergency department, her last Accu-Chek was 130. Will obtain another Accu-Chek in 1 hour if patient is maintaining her blood glucose level will discharge home TRAVEL OUTSIDE OF THE [place] IN LAST 30 DAYS: No - Related Data Allergies/Adverse Reactions: hydrochlorothiazide [From Maxzide] Allergy (Verified 10/31/19 03:35) triamterene [From Maxzide] Allergy (Verified 10/31/19 03:35) Past Medical History - Social History Smoking Status: Unknown if Ever Smoked Family History: Reviewed & Not Pertinent, DM, Malignancy - Mother had liver cancer, Other - Father of sudden arrhythmia, had cirrhosis and a liver transplant. Patient has suicidal ideation: No Patient has homicidal ideation: No - Past Medical History Cardiac Medical History: Reports: Hx Hypercholesterolemia - On no medication for same, Hx Hypertension Denies: Hx Congestive Heart Failure, Hx DVT, Hx Heart Attack, Hx Pulmonary Embolism, Hx Heart Murmur Pulmonary Medical History: Reports: Hx Bronchitis, Hx COPD, Hx Pneumonia, Hx Sleep Apnea Denies: Hx Respiratory Failure, Hx Tuberculosis Neurological Medical History: Denies: Hx Seizures Endocrine Medical History: Reports: Hx Diabetes Mellitus Type 1, Hx Diabetes Mellitus Type 2. Denies: Hx Hyperthyroidism, Hx Hypothyroidism Renal/ Medical History: Reports: Hx Renal Insufficiency - Her creatinines have remained under 1.0. Denies: Hx Peritoneal Dialysis GI Medical History: Reports: Hx Gastroesophageal Reflux Disease. Denies: Hx Cirrhosis, Hx Hepatitis, Hx Pancreatitis Musculoskeletal Medical History: Reports Hx Arthritis, Denies Hx Systemic Lupus Erythematosus Skin Medical History: Denies Hx Eczema, Denies Hx Psoriasis Psychiatric Medical History: Reports: Hx Anxiety, Hx Bipolar Disorder, Hx Depres varsha Infectious Medical History: Denies: Hx Hepatitis Past Surgical History: Reports: Hx Section - x2, Hx Tubal Ligation, Other - Laser eye surgery 2. - Immunizations Immunizations up to date: Yes Hx Diphtheria, Pertussis, Tetanus Vaccination: Yes Hx Pneumococcal Vaccination: 02/26/12 Physical Exam - Vital signs Vitals: Temp Pulse Resp BP Pulse Ox 98.1 F 84 18 105/65 100 01/19/20 09:19 01/19/20 09:19 01/19/20 09:19 01/19/20 09:19 01/19/20 09:19 Course - Re-evaluation Re-evalutation: 01/19/20 11:15 Accu-Chek 269. Will discharge home to follow-up with her sanitation laborer in [place] - Vital Signs Vital signs: Temp Pulse Resp BP Pulse Ox 98.1 F 84 18 105/65 100 01/19/20 09:19 01/19/20 09:19 01/19/20 09:19 01/19/20 09:19 01/19/20 09:19 Discharge - Discharge Clinical Impression: Hypoglycemia Condition: Stable Disposition: HOME, SELF-CARE Additional Instructions: Call your endocrinology group in [place] today to discuss your insulin dosing. If you are not eating well at home you are likely taking too much insulin causing the low blood sugars. Hold the sliding scale insulin tonight and only give the 70/30 insulin and reassess the blood sugars in the morning and discuss this further with your sanitation laborer for management Referrals: MELISSA WEST PA-C [Primary Care Provider] - Follow up as needed
[2020-01-19 11:46] VITALS: BP 124/67
== END 2020-01-19 11:48 | disposition home or self-care (01) ==
LOC: ER 09:03
DX: E11.649 Type 2 diabetes mellitus with hypoglycemia without coma (principal); E78.00 Pure hypercholesterolemia, unspecified; I10 Essential (primary) hypertension; J44.9 Chronic obstructive pulmonary disease, unspecified; Z98.51 Tubal ligation status; Z79.4 Long term (current) use of insulin
CPT/HCPCS: 82962; 99285

== ENCOUNTER 2020-05-20 02:23 | Emergency (ER) | payer MEDICAID ==
[2020-05-20 03:57] LABS: ABSOLUTE EOSINOPHILS # (AUTO) 0.3 10^3/uL (0.0-0.6); ABSOLUTE LYMPHOCYTES (AUTO) 2.4 10^3/uL (0.5-4.7); ABSOLUTE MONOCYTES (AUTO) 0.3 10^3/uL (0.1-1.4); ABSOLUTE NEUT (AUTO) 2.3 10^3/uL (1.7-8.2); BASOPHILS % (AUTO) 0.5 % (0-2); EOSINOPHILS % (AUTO) 4.8 % (0-6); HEMOGLOBIN 11.4 g/dL (12.0-15.5); LYMPHOCYTES % (AUTO) 46.2 % (13-45); MEAN CORPUSCULAR HEMOGLOBIN 26.2 pg (27.0-33.4); MEAN CORPUSCULAR HGB CONC 33.5 g/dL (32.0-36.0); MEAN CORPUSCULAR VOLUME 78 fl (80-97); MONOCYTES % (AUTO) 5.2 % (3-13); PLATELET COUNT 191 10^3/uL (150-450); RED BLOOD COUNT 4.36 10^6/uL (3.72-5.28); RED CELL DISTRIBUTION WIDTH 15.2 % (11.5-14.0); SEGMENTED NEUTROPHILS % (AUTO) 43.3 % (42-78); TOTAL CELLS COUNTED % (AUTO) 100 %; WHITE BLOOD COUNT 5.3 10^3/uL (4.0-10.5)
[2020-05-20 04:17] LABS: ALBUMIN 4.3 g/dL (3.5-5.0); ALKALINE PHOSPHATASE 101 U/L (38-126); ANION GAP 9 (5-19); ASPARTATE AMINO TRANSFERASE 29 U/L (14-36); BILIRUBIN,TOTAL 0.7 mg/dL (0.2-1.3); BLOOD UREA NITROGEN 23 mg/dL (7-20); CALCIUM 9.4 mg/dL (8.4-10.2); CARBON DIOXIDE 30 mmol/L (22-30); CHLORIDE 102 mmol/L (98-107); GLUCOSE 102 mg/dL (75-110); POTASSIUM 3.4 mmol/L (3.6-5.0); TOTAL PROTEIN 7.1 g/dL (6.3-8.2)
[2020-05-20 04:20] LABS: APPEARANCE,URINE TURBID; BILIRUBIN,URINE SMALL (NEGATIVE); COLOR,URINE YELLOW; GLUCOSE, URINE >=500 mg/dL (NEGATIVE); KETONES,URINE NEGATIVE (NEGATIVE); LEUKOCYTE ESTERASE,URINE MODERATE (NEGATIVE); NITRITE,URINE NEGATIVE (NEGATIVE); PROTEIN,URINE 100 mg/dL (NEGATIVE); URINE SPECIFIC GRAVITY 1.021
[2020-05-20] MEDS ORDERED: CEFTRIAXONE INJ 1000 MG VIAL IM ONE (10:21)
[2020-05-20] MEDS ORDERED: LIDOCAINE 1% INJ-PF (10 MG/ML) 30 ML SDV NEB ONE (10:21)
--- NOTE | 2020-05-20 10:48 | ER Document Report ---
ED General - General Chief Complaint: General Weakness Stated Complaint: WEAKNESS Time Seen by Provider: 05/20/20 10:17 Primary Care Provider: MELISSA WEST PA-C [Primary Care Provider] - Follow up as needed Mode of Arrival: Ambulatory Information source: Patient TRAVEL OUTSIDE OF THE [place] IN LAST 30 DAYS: No - HPI Notes: Patient presents complaining of having some generalized weakness. She also states that she felt her blood pressure was too high yesterday. And she also states that she felt her heart "change rhythm" yesterday. She states currently she feels like her heart has a normal rhythm. She states that she has also noticed that her urine is dark and has an odor. Her weakness is been general. Is been mild to moderate. It is worse with exertion better with rest. It does radiate throughout her body. It has been constant. - Related Data Allergies/Adverse Reactions: hydrochlorothiazide [From Maxzide] Allergy (Verified 10/31/19 03:35) triamterene [From Maxzide] Allergy (Verified 10/31/19 03:35) Past Medical History - General Information source: Patient - Social History Smoking Status: Current Every Day Smoker Frequency of alcohol use: None Drug Abuse: None Family History: Reviewed & Not Pertinent, DM, Malignancy - Mother had liver cancer, Other - Father of sudden arrhythmia, had cirrhosis and a liver transplant. Patient has homicidal ideation: No - Past Medical History Cardiac Medical History: Reports: Hx Hypercholesterolemia - On no medication for same, Hx Hypertension Denies: Hx Congestive Heart Failure, Hx DVT, Hx Heart Attack, Hx Pulmonary Embolism, Hx Heart Murmur Pulmonary Medical History: Reports: Hx Bronchitis, Hx COPD, Hx Pneumonia, Hx Sleep Apnea Denies: Hx Respiratory Failure, Hx Tuberculosis Neurological Medical History: Denies: Hx Seizures Endocrine Medical History: Reports: Hx Diabetes Mellitus Type 1, Hx Diabetes Mellitus Type 2. Denies: Hx Hyperthyroidism, Hx Hypothyroidism Renal/ Medical History: Reports: Hx Renal Insufficiency - Her creatinines have remained under 1.0. Denies: Hx Peritoneal Dialysis GI Medical History: Reports: Hx Gastroesophageal Reflux Disease. Denies: Hx Cirrhosis, Hx Hepatitis, Hx Pancreatitis Musculoskeletal Medical History: Reports Hx Arthritis, Denies Hx Systemic Lupus Erythematosus Skin Medical History: Denies Hx Eczema, Denies Hx Psoriasis Psychiatric Medical History: Reports: Hx Anxiety, Hx Bipolar Disorder, Hx Depression Infectious Medical History: Denies: Hx Hepatitis Past Surgical History: Reports: Hx Section - x2, Hx Tubal Ligation, Other - Laser eye surgery 2. - Immunizations Immunizations up to date: Yes Hx Diphtheria, Pertussis, Tetanus Vaccination: Yes Hx Pneumococcal Vaccination: 02/26/12 Review of Systems - Review of Systems Constitutional: Weakness. denies: Chills, Fever Cardiovascular: denies: Chest pain, Palpitations Respiratory: denies: Cough, Short of breath -: Yes All other systems reviewed and negative Physical Exam - Vital signs Vitals: Temp Pulse Resp BP Pulse Ox 97.5 F 76 18 125/69 96 05/20/20 02:31 05/20/20 02:31 05/20/20 02:31 05/20/20 02:05/20/20 02:31 Interpretation: Normal - General General appearance: Appears well, Alert - HEENT Head: Normocephalic, Atraumatic Eyes: Normal Pupils: PERRL - Respiratory Respiratory status: No respiratory distress Chest status: Nontender Breath sounds: Normal Chest palpation: Normal - Cardiovascular Rhythm: Regular Heart sounds: Normal auscultation Murmur: No - Abdominal Inspection: Normal Distension: No distension Bowel sounds: Normal Tenderness: Nontender Organomegaly: No organomegaly - Back Back: Normal, Nontender - Extremities General upper extremity: Normal inspection, Nontender, Normal color, Normal ROM, Normal temperature General lower extremity: Normal inspection, Nontender, Normal color, Normal ROM, Normal temperature, Normal weight bearing. No: Adam's sign - Neurological Neuro grossly intact: Yes Cognition: Normal Orientation: AAOx4 [place] Coma Scale Eye Opening: Spontaneous [place] Coma Scale Verbal: Oriented [place] Coma Scale Motor: Obeys Commands Samara Coma Scale Total: 15 Speech: Normal Motor strength normal: LUE, RUE, LLE, RLE Sensory: Normal - Psychological Associated symptoms: Normal affect, Normal mood - Skin Skin Temperature: Warm Skin Moisture: Dry Skin Color: Normal Course - Re-evaluation Re-evalutation: 05/20/20 10:46 Patient presents with weakness. Patient has an obvious urinary tract infection. Patient's vital signs are stable. She felt that her heart was not beating correctly however she has a normal sinus rhythm on EKG. She is also concerned about her blood pressure but she has normal blood pressures here. I will send her home with antibiotics for the urinary tract infection. - Vital Signs Vital signs: Temp Pulse Resp BP Pulse Ox 97.7 F 69 20 110/63 96 05/20/20 06:06 05/20/20 06:06 05/20/20 06:06 05/20/20 06:06 05/20/20 06:06 - Laboratory Result Diagrams: 05/20/20 03:45 05/20/20 03:45 Laboratory results interpreted by me: 05/20/20 05/20/20 05/20/20 03:45 03:45 03:45 Hgb 11.4 L Hct 34.0 L MCV 78 L MCH 26.2 L RDW 15.2 H Lymph % (Auto) 46.2 H Potassium 3.4 L BUN 23 H Creatinine 1.27 H Est GFR ( Amer) 52 L Est GFR (MDRD) Non-Af 43 L Urine Protein 100 H Urine Glucose (UA) >=500 H Urine Bilirubin SMALL H Urine Urobilinogen 2.0 H Ur Leukocyte Esterase MODERATE H - Diagnostic Test Radiology reviewed: Image reviewed, Reports reviewed - EKG Interpretation by Me EKG shows normal: Sinus rhythm Rate: Normal - 70 Rhythm: NSR [place]/QRS: No: Right axis deviation, Left axis deviation Discharge - Discharge Clinical Impression: UTI (urinary tract infection) Qualifiers: Urinary tract infection type: acute cystitis Hematuria presence: without hematuria Qualified Code(s): N30.00 - Acute cystitis without hematuria Condition: Stable Disposition: HOME, SELF-CARE Instructions: Urinary Tract Infection ([facility]) Prescriptions: Cefdinir 300 mg PO BID 7 Days #14 capsule Forms: Return to Work Referrals: MELISSA WEST PA-C [Primary Care Provider] - Follow up in 3-5 days
[2020-05-20 10:56] VITALS: BP 118/72
--- NOTE | 2020-05-20 13:18 | EKG REPORT ---
SEVERITY:- ABNORMAL ECG - SINUS RHYTHM NONSPECIFIC IVCD WITH LAD LEFT VENTRICULAR HYPERTROPHY : Confirmed by: Ismael Oneal MD 20-May-2020 13:16:57
== END 2020-05-20 10:57 | disposition home or self-care (01) ==
LOC: ER 02:23
DX: N30.00 Acute cystitis without hematuria (principal); R53.1 Weakness; F17.200 Nicotine dependence, unspecified, uncomplicated; E78.00 Pure hypercholesterolemia, unspecified; I10 Essential (primary) hypertension; E11.9 Type 2 diabetes mellitus without complications
CPT/HCPCS: 93005; 99285; 96372; 36415; 82962; 85025; 80053; 81001; 93010; J3490; J0696

== ENCOUNTER 2020-06-12 17:15 | Emergency (ER) | payer MEDICAID ==
[2020-06-12 17:22] VITALS: BP 127/69
--- NOTE | 2020-06-12 19:53 | ER Document Report ---
ED Medical Screen (RME) - General Chief Complaint: Near Syncope Stated Complaint: HALLUCINATIONS,DIZZINESS Time Seen by Provider: 06/12/20 19:42 Primary Care Provider: MELISSA WEST PA-C [Primary Care Provider] - Follow up as needed Notes: Patient is a 60-year-old female who presents emergency department with a chief complaint complaint of hallucinations, not acting herself, and falling multiple times within the past week. Patient was at [facility] and last week she ended up hitting her head. Patient has been more confused for the past few days. States that she has been seeing things that are not actually there. Exam: Alert and oriented. Moves all extremities with no difficulty. I have greeted and performed a rapid initial assessment of this patient. A comprehensive ED assessment and evaluation of the patient, analysis of test results and completion of medical decision making process will be conducted by an additional ED providers. TRAVEL OUTSIDE OF THE [place] IN LAST 30 DAYS: No - Related Data Allergies/Adverse Reactions: hydrochlorothiazide [From Maxzide] Allergy (Verified 10/31/19 03:35) triamterene [From Maxzide] Allergy (Verified 10/31/19 03:35) Past Medical History - Past Medical History Cardiac Medical History: Reports: Hx Hypercholesterolemia - On no medication for same, Hx Hypertension Denies: Hx Congestive Heart Failure, Hx DVT, Hx Heart Attack, Hx Pulmonary Embolism, Hx Heart Murmur Pulmonary Medical History: Reports: Hx Bronchitis, Hx COPD, Hx Pneumonia, Hx Sleep Apnea Denies: Hx Respiratory Failure, Hx Tuberculosis Neurological Medical History: Denies: Hx Seizures Endocrine Medical History: Reports: Hx Diabetes Mellitus Type 1, Hx Diabetes Mellitus Type 2. Denies: Hx Hyperthyroidism, Hx Hypothyroidism Renal/ Medical History: Reports: Hx Renal Insufficiency - Her creatinines have remained under 1.0. Denies: Hx Peritoneal Dialysis GI Medical History: Reports: Hx Gastroesophageal Reflux Disease. Denies: Hx Cirrhosis, Hx Hepatitis, Hx Pancreatitis Musculoskeltal Medical History: Reports Hx Arthritis, Denies Hx Systemic Lupus Erythematosus Skin Medical History: Denies Hx Eczema, Denies Hx Psoriasis Psychiatric Medical History: Reports: Hx Anxiety, Hx Bipolar Disorder, Hx Depression Infectious Medical History: Denies: Hx Hepatitis Past Surgical History: Reports: Hx Section - x2, Hx Tubal Ligation, Other - Laser eye surgery 2. - Immunizations Immunizations up to date: Yes Hx Diphtheria, Pertussis, Tetanus Vaccination: Yes Physical Exam - Vital signs Vitals: Temp Pulse Resp BP Pulse Ox 97.5 F 75 18 127/69 H 93 06/12/20 17:21 06/12/20 17:21 06/12/20 17:21 06/12/20 17:21 06/12/20 17:21 Course - Vital Signs Vital signs: Temp Pulse Resp BP Pulse Ox 97.5 F 75 18 127/69 H 93 06/12/20 17:21 06/12/20 17:21 06/12/20 17:21 06/12/20 17:21 06/12/20 17:21 Doctor's Discharge - Discharge Referrals: MELISSA WEST PA-C [Primary Care Provider] - Follow up as needed
[2020-06-12 20:23] LABS: ABSOLUTE EOSINOPHILS # (AUTO) 0.3 10^3/uL (0.0-0.6); ABSOLUTE LYMPHOCYTES (AUTO) 1.5 10^3/uL (0.5-4.7); ABSOLUTE MONOCYTES (AUTO) 0.2 10^3/uL (0.1-1.4); ABSOLUTE NEUT (AUTO) 2.9 10^3/uL (1.7-8.2); BASOPHILS % (AUTO) 0.6 % (0-2); EOSINOPHILS % (AUTO) 5.3 % (0-6); HEMATOCRIT 32.2 % (36.0-47.0); HEMOGLOBIN 10.7 g/dL (12.0-15.5); LYMPHOCYTES % (AUTO) 30.2 % (13-45); MEAN CORPUSCULAR HEMOGLOBIN 26.1 pg (27.0-33.4); MEAN CORPUSCULAR HGB CONC 33.2 g/dL (32.0-36.0); MEAN CORPUSCULAR VOLUME 79 fl (80-97); MONOCYTES % (AUTO) 4.4 % (3-13); PLATELET COUNT 172 10^3/uL (150-450); RED CELL DISTRIBUTION WIDTH 15.7 % (11.5-14.0); SEGMENTED NEUTROPHILS % (AUTO) 59.5 % (42-78); TOTAL CELLS COUNTED % (AUTO) 100 %
[2020-06-12 20:32] LABS: APPEARANCE,URINE CLOUDY; BILIRUBIN,URINE NEGATIVE (NEGATIVE); COLOR,URINE YELLOW; GLUCOSE, URINE >=500 mg/dL (NEGATIVE); KETONES,URINE NEGATIVE (NEGATIVE); PROTEIN,URINE NEGATIVE (NEGATIVE); UROBILINOGEN,URINE NEGATIVE mg/dL (<2.0)
[2020-06-12 20:42] LABS: URINE AMPHETAMINES SCREEN NEGATIVE; URINE BARBITURATES SCREEN NEGATIVE; URINE BENZODIAZEPINES SCREEN NEGATIVE; URINE COCAINE SCREEN NEGATIVE; URINE MARIJUANA (THC) SCREEN NEGATIVE; URINE METHADONE SCREEN NEGATIVE; URINE PHENCYCLIDINE SCREEN NEGATIVE
--- NOTE | 2020-06-12 20:44 | RADIOLOGY REPORT (SQ) ---
EXAM DESCRIPTION: XR CHEST 2 VIEWS COMPLETED DATE/TME: 06/12/2020 19:49 CLINICAL HISTORY: 60 years Female AMS COMPARISON: 12/08/2019. FINDINGS: The cardiomediastinal silhouette appears unremarkable. No consolidating infiltrates or pleural effusions. No pneumothorax. IMPRESSION: No acute abnormality is identified.
[2020-06-12 20:52] LABS: ALKALINE PHOSPHATASE 131 U/L (38-126); ANION GAP 5 (5-19); ASPARTATE AMINO TRANSFERASE 24 U/L (14-36); BILIRUBIN,TOTAL 0.5 mg/dL (0.2-1.3); BLOOD UREA NITROGEN 12 mg/dL (7-20); CALCIUM 9.1 mg/dL (8.4-10.2); CARBON DIOXIDE 28 mmol/L (22-30); CHLORIDE 107 mmol/L (98-107); GLUCOSE 158 mg/dL (75-110); TOTAL PROTEIN 6.8 g/dL (6.3-8.2)
[2020-06-12 20:55] LABS: ACETAMINOPHEN < 10 ug/mL (10-30); ALCOHOL < 10 mg/dL (NONE DETECTED); SALICYLATE < 1.0 mg/dL (2.0-20.0)
--- NOTE | 2020-06-12 21:18 | RADIOLOGY REPORT (SQ) ---
EXAM DESCRIPTION: CT HEAD WITHOUT IV CONTRAST COMPLETED DATE/TME: 06/12/2020 19:42 CLINICAL HISTORY: 60 years Female AMS COMPARISON: 10/31/2019 TECHNIQUE: Contiguous axial CT images obtained through the brain without IV contrast. This exam was performed according to our department optimization program which includes automated exposure control, adjustment of the mA and/or kv according to patient size and/or use of iterative reconstruction technique. FINDINGS: The ventricles and sulci are prominent consistent with atrophic changes. No mass lesions. No acute hemorrhage. Atherosclerotic calcifications. No fluid or significant mucosal thickening in the visualized paranasal sinuses. No depressed calvarial fractures. IMPRESSION: No acute intracranial abnormality is identified.
== END 2020-06-12 23:22 | disposition left against medical advice (07) ==
LOC: ER 17:15
DX: R55 Syncope and collapse (principal); R42 Dizziness and giddiness; R44.3 Hallucinations, unspecified; E78.00 Pure hypercholesterolemia, unspecified; I10 Essential (primary) hypertension; E11.9 Type 2 diabetes mellitus without complications; Z98.51 Tubal ligation status
CPT/HCPCS: 36415; 70450; 71046; 80053; 80307; 81001; 83735; 85025; 99281